=== PATIENT | male | born 1960 | race Caucasian/White ===

== ENCOUNTER 2020-10-12 07:41 | Inpatient (IN) | payer MEDICAID, OTHER ==
[2020-10-12] VITALS (11 sets, daily range): BP systolic 122–150; BP diastolic 70–88
[~2020-10-12] VITALS: Ht 182.9 cm; Wt 112.2 kg
--- NOTE | 2020-10-12 08:00 | PHYS DOC ---
Adult General Chief Complaint Chief Complaint: BLOODY STOOL HPI HPI Patient is a 60 year old male with a complicated medical history which includes recent diagnosis of pneumonia ultimately resulting in placement of a tra cheostomy and PEG tube placement who is still on high respiratory demands on trach collar during the day and ventilator at night now presenting to the emergency department due to concern for new onset of GI bleed. I was called by the physician at the facility who states that it is still that overnight the patient had 2 episodes of significant hematochezia. Patient is on Eliquis at this time and there is concern for development of new onset of GI bleed. Patient is currently nonverbal and unable to provide any additional history Review of Systems Review of Systems Constitutional: Denies fever or chills [] Eyes: Denies change in visual acuity, redness, or eye pain [] HENT: Denies nasal congestion or sore throat [] Respiratory: Denies cough or shortness of breath [] Cardiovascular: No additional information not addressed in HPI [] GI: Denies abdominal pain, nausea, vomiting, bloody stools or diarrhea [] : Denies dysuria or hematuria [] Musculoskeletal: Denies back pain or joint pain [] Integument: Denies rash or skin lesions [] Neurologic: Denies headache, focal weakness or sensory changes [] Endocrine: Denies polyuria or polydipsia [] All other systems were reviewed and found to be within normal limits, except as documented in this note. Current Medications Current Medications Current Medications Medications (Trade) Dose Ordered Sig/Asfaneh Start Time Stop Time Status Last Admin Dose Admin Info (CONTRAST GIVEN -- Rx MONITORING) 1 each PRN DAILY PRN 10/12/20 08:30 10/14/20 08:29 Iohexol (Omnipaque 300 Mg/ml) 75 ml 1X ONCE 10/12/20 08:15 10/12/20 08:16 DC 10/12/20 08:15 75 ML Allergies Allergies Allergies Coded Allergies Type Severity Reaction Last Updated Verified amoxicillin Allergy Intermediate 10/12/20 Yes ampicillin Allergy Intermediate 10/12/20 Yes clarithromycin Allergy Intermediate 10/12/20 Yes insulin detemir Allergy Intermediate ITCHING/SWELLING 10/12/20 Yes Physical Exam Physical Exam Constitutional: Well developed, well nourished, no acute distress, non-toxic appearance. [] HENT: Normocephalic, atraumatic, bilateral external ears normal, oropharynx moist, no oral exudates, nose normal. [] Eyes: PERRLA, EOMI, conjunctiva normal, no discharge. [] Neck: Normal range of motion, no tenderness, supple, no stridor. [] Cardiovascular:Heart rate regular rhythm, no murmur [] Lungs & Thorax: Bilateral breath sounds clear to auscultation [] Abdomen: Bowel sounds normal, soft, no tenderness, no masses, no pulsatile masses. [] Skin: Warm, dry, no erythema, no rash. [] Back: No tenderness, no CVA tenderness. [] Extremities: No tenderness, no cyanosis, no clubbing, ROM intact, no edema. [] Neurologic: Alert and oriented X 3, normal motor function, normal sensory function, no focal deficits noted. [] Psychologic: Affect normal, judgement normal, mood normal. [] Current Patient Data Vital Signs Vital Signs Date Time Temp Pulse Resp B/P (MAP) Pulse Ox O2 Delivery O2 Flow Rate FiO2 10/12/20 08:50 118 130/84 (99) 99 Tracheal Collar 15.0 10/12/20 07:41 99.7 24 99.7 Lab Values Laboratory Tests Test 10/12/20 06:40 10/12/20 07:45 10/12/20 08:10 Prothrombin Time 18.4 SEC (11.7-14.0) H Prothrombin Time INR 1.6 (0.8-1.1) H Activated Partial Thromboplast Time 33 SEC (24-38) White Blood Count 15.2 x10^3/uL (4.0-11.0) H Red Blood Count 3.13 x10^6/uL (4.30-5.70) L Hemoglobin 9.0 g/dL (13.0-17.5) L Hematocrit 28.7 % (39.0-53.0) L Mean Corpuscular Volume 92 fL (79-100) Mean Corpuscular Hemoglobin 29 pg (25-35) Mean Corpuscular Hemoglobin Concent 31 g/dL (31-37) Red Cell Distribution Width 16.9 % (11.5-14.5) H Platelet Count 342 x10^3/uL (140-400) Neutrophils (%) (Auto) 82 % (31-73) H Lymphocytes (%) (Auto) 10 % (24-48) L Monocytes (%) (Auto) 6 % (0-9) Eosinophils (%) (Auto) 1 % (0-3) Basophils (%) (Auto) 1 % (0-3) Neutrophils # (Auto) 12.5 x10^3/uL (1.8-7.7) H Lymphocytes # (Auto) 1.6 x10^3/uL (1.0-4.8) Monocytes # (Auto) 0.9 x10^3/uL (0.0-1.1) Eosinophils # (Auto) 0.1 x10^3/uL (0.0-0.7) Basophils # (Auto) 0.1 x10^3/uL (0.0-0.2) Sodium Level 145 mmol/L (136-145) Potassium Level 4.6 mmol/L (3.5-5.1) Chloride Level 110 mmol/L (98-107) H Carbon Dioxide Level 27 mmol/L (21-32) Anion Gap 8 (6-14) Blood Urea Nitrogen 35 mg/dL (8-26) H Creatinine 1.5 mg/dL (0.7-1.3) H Estimated GFR (Cockcroft-Gault) 47.6 Glucose Level 209 mg/dL (70-99) H Calcium Level 8.1 mg/dL (8.5-10.1) L Total Bilirubin 0.4 mg/dL (0.2-1.0) Direct Bilirubin 0.1 mg/dL (0.0-0.2) Aspartate Amino Transferase (AST) 25 U/L (15-37) Alanine Aminotransferase (ALT) 29 U/L (16-63) Alkaline Phosphatase 52 U/L (46-116) Total Protein 5.9 g/dL (6.4-8.2) L Albumin 2.5 g/dL (3.4-5.0) L Urine Collection Type Unknown Urine Color Yellow Urine Clarity Clear Urine pH 5.0 (<5.0-8.0) Urine Specific [place] 1.025 (1.000-1.030) Urine Protein 30 mg/dL (NEG-TRACE) Urine Glucose (UA) >=1000 mg/dL (NEG) Urine Ketones (Stick) Negative mg/dL (NEG) Urine Blood Large (NEG) Urine Nitrite Negative (NEG) Urine Bilirubin Negative (NEG) Urine Urobilinogen Dipstick 0.2 mg/dL (0.2 mg/dL) Urine Leukocyte Esterase Negative (NEG) Urine RBC 20-40 /HPF (0-2) Urine WBC Occ /HPF (0-4) Urine Squamous Epithelial Cells Few /LPF Urine Amorphous Sediment Present /HPF Urine Bacteria Few /HPF (0-FEW) Urine Hyaline Casts Occasional /HPF Urine Mucus Slight /LPF Laboratory Tests 10/12/20 07:45 Laboratory Tests 10/12/20 07:45 EKG EKG [] Radiology/Procedures Radiology/Procedures [] Course & Med Decision Making Course & Med Decision Making Pertinent Labs and Imaging studies reviewed. (See chart for details) 60M unresponsive presenting to the emergency department with apparent new onset of hematochezia. I already discussed the case with Dr. Villareal and we are anticipating that the patient continued to be admitted for GI evaluation. Will obtain a abdominal work-up and a CT scan of the abdomen to see if there is any source of bleeding. Dragon Disclaimer Dragon Disclaimer This electronic medical record was generated, in whole or in part, using a voice recognition dictation system. Departure Departure Impression: Primary Impression: Hematochezia Additional Impressions: Tracheostomy care PEG (percutaneous endoscopic gastrostomy) status Altered mental status Disposition: 09 ADMITTED INPT THIS HOSP Condition: GUARDED Problem Qualifiers PETERSON BAUTISTA MD Oct 12, 2020 08:00
[2020-10-12 08:06] LABS: BASO # 0.1 x10^3/uL (0.0-0.2); BASO % 1 % (0-3); EOS # 0.1 x10^3/uL (0.0-0.7); EOS % 1 % (0-3); HEMATOCRIT 28.7 % (39.0-53.0); LYMPH # 1.6 x10^3/uL (1.0-4.8); LYMPH % 10 % (24-48); MEAN CORPUSCULAR HEMOGLOBIN 29 pg (25-35); MEAN CORPUSCULAR HGB CONC 31 g/dL (31-37); MEAN CORPUSCULAR VOLUME 92 fL (79-100); MONO # 0.9 x10^3/uL (0.0-1.1); MONO % 6 % (0-9); NEUT # 12.5 x10^3/uL (1.8-7.7); NEUT % 82 % (31-73); PLATELET COUNT 342 x10^3/uL (140-400); RED BLOOD COUNT 3.13 x10^6/uL (4.30-5.70); RED CELL DISTRIBUTION WIDTH 16.9 % (11.5-14.5); WHITE BLOOD COUNT 15.2 x10^3/uL (4.0-11.0)
[2020-10-12 08:15] LABS: CALCIUM 8.1 mg/dL (8.5-10.1); CREATININE 1.5 mg/dL (0.7-1.3); GFR 47.6; POTASSIUM 4.6 mmol/L (3.5-5.1)
[2020-10-12] MEDS ORDERED: IOHEXOL 300 MG/ML 100ML VIAL. IV ONE (08:15)
[2020-10-12 08:17] LABS: PROTHROMBIN TIME PATIENT 18.4 SEC (11.7-14.0)
[2020-10-12 08:22] LABS: BILIRUBIN,URINE NEGATIVE (NEG); CLARITY,URINE CLEAR; COLOR,URINE YELLOW; NITRITE,URINE NEGATIVE (NEG); PROTEIN,URINE 30 mg/dL (NEG-TRACE); UROBILINOGEN,URINE 0.2 mg/dL (0.2 mg/dL)
[2020-10-12 08:25] LABS: ALBUMIN 2.5 g/dL (3.4-5.0); DIRECT BILIRUBIN 0.1 mg/dL (0.0-0.2); TOTAL BILIRUBIN 0.4 mg/dL (0.2-1.0); TOTAL PROTEIN 5.9 g/dL (6.4-8.2)
[2020-10-12] MEDS ORDERED: CONTRAST GIVEN. MC PRN (08:30)
[2020-10-12 08:34] LABS: BACTERIA,URINE FEW /HPF (0-FEW); RBC,URINE 20-40 /HPF (0-2); WBC,URINE OCC /HPF (0-4)
[2020-10-12 08:35] LABS: AMORPHOUS SEDIMENT,UR PRESENT /HPF; HYALINE CASTS, URINE OCCASIONAL /HPF
--- NOTE | 2020-10-12 09:31 | RAD ---
CT ABDOMEN+PELVIS W History: Reason: GI BLEED / Spl. Instructions: IV OMNI 300 75 MLS / History: Comparison: None. Technique: CT of the abdomen and pelvis with intravenous contrast. Exposure: One or more of the following individualized dose reduction techniques were utilized for thi s examination: 1. Automated exposure control 2. Adjustment of the mA and/or kV according to patient size 3. Use of iterative reconstruction technique. Findings: Lower lobes demonstrate streaky opacities. There is cardiomegaly and advanced coronary artery calcifi cation. Bilateral gynecomastia. No free air or free fluid in the abdomen and pelvis. Unremarkable liver. 5 mm calcified gallstone without evidence of cholecystitis. No intra or extrahepa tic biliary duct dilatation. The pancreas, spleen, and adrenal glands are unremarkable. Exophytic 5.5 cm right upper pole renal cyst 1.2 cm left upper pole renal cyst. No hydronephrosis or nephrolithias is. Bladder is decompressed by Najera catheter. Stomach is relatively decompressed. There is a right percutaneous gastrostomy tube with expected posi tioning of retention balloon. Small bowel is unremarkable. There is no evidence of appendicitis. The colon is distended with fluid to the rectum and there is no focal wall thickening or pericolonic infl ammatory changes. A slightly hyperdense foci are seen at the proximal ascending colon (axial image 66 ) which is of unclear etiology. There are a few pericolonic and calcified nodules which may represent sequela of old epiploic infarction. No significant diverticular disease. Atherosclerotic calcificati on of the aorta and branches without aneurysm. No significant abdominopelvic adenopathy. Degenerative changes of the spine greatest at L5 L6. Variant anatomy transitional L6 vertebral segment. Impression: 1. Fluid distended colon without focal wall thickening, pericolonic inflammatory change or significa nt diverticular disease. A focus of increased density at the wall of the proximal ascending colon may represent artifact or ingested material. Vascular blush is thought to be less likely. No definitive source of gastrointestinal bleeding is identified. 2. Appropriately positioned percutaneous gastrostomy tube. 3. Bibasilar streaky opacities may represent atelectasis however superimposed infection cannot be ex cluded. Electronically signed by: Eliud Schulz MD (10/12/2020 9:28 AM) [facility]
--- NOTE | 2020-10-12 10:11 | EKG ---
[facility] [address] [place] [address] Test Date: 2020-10-12 Test Time: 08:10:36 Pat Name: MALINDA GEORGES Department: Room: Gender: M Pipe [employer] Ammonia: : 1960 Requested By: PETERSON BAUTISTA Order Number: [id number] Reading MD: Measurements Intervals Brandon Rate: 122 P: 25 UT: 144 QRS: -35 QRSD: 76 T: 66 QT: 290 QTc: 414 Interpretive Statements SINUS TACHYCARDIA LEFT ATRIAL ABNORMALITY ABNORMAL LEFT AXIS DEVIATION LEFT ANTERIOR FASCICULAR BLOCK QRS(T) CONTOUR ABNORMALITY CONSISTENT WITH SEPTAL INFARCT PROBABLY OLD ABNORMAL ECG RI6.02 No previous ECG available for comparison
[2020-10-12] MEDS ORDERED: MORPHINE SULFATE 4 MG/ML VIAL. IV PRN (10:15)
[2020-10-12] MEDS ORDERED: ONDANSETRON PF 4 MG/2 ML VIAL. IV PRN (10:15)
--- NOTE | 2020-10-12 10:26 | PDOC ---
Provider Note Date of Service: DATE: 10/12/20 TIME: 10:26 Provider Note history and physical dictated # [id number] Justifications for Admission Other Justification GLENNY GANN MD Oct 12, 2020 10:26
[2020-10-12] MEDS ORDERED: POTASSIUM CL 20MEQ D5-0.45NACL 1,000 ML IV SCH (10:30)
[2020-10-12] MEDS ORDERED: ONDANSETRON PF 4 MG/2 ML VIAL. IVP PRN ×2 (10:30→11:00)
[2020-10-12] MEDS ORDERED: METOPROLOL IV PUSH 5 MG/5 ML VIAL. IVP PRN (10:30)
[2020-10-12] MEDS ORDERED: MEROPENEM 500 MG in IV NORMAL SALINE 50ML 50 ML IV ONE (11:00)
--- NOTE | 2020-10-12 11:22 | HP ---
ADMIT DATE: 10/12/2020 HISTORY OF PRESENT ILLNESS: The patient is a 60-year-old morbidly obese white male with history of diabetes mellitus type 2, on insulin, hypertension, hyperlipidemia, coronary artery disease with previous coronary angioplasty and stent, chronic obstructive pulmonary disease with chronic hypoxic respiratory failure, maintained on oxygen 1-2 liters per nasal cannula at home, was admitted to [facility] in 08/2020 with acute kidney injury and was noted to be COVID-19 positive. He had acute on chronic hypoxic respiratory failure, had to be intubated, placed on a ventilator, eventually had a tracheostomy and PEG was placed. He was not weaned off the ventilator. His hospital course was complicated by new onset atrial fibrillation with rapid ventricular response, treated with amiodarone and Eliquis, and noted to have a deep vein thrombosis of right upper extremity, treated with Eliquis. He also had Campylobacter jejuni, treated with a 3-day course of doxycycline which resolved. He had Bordetella in the sputum, received a course of Zithromax and Rocephin. His tracheostomy and PEG was placed in 09/24/2020. He developed acute kidney injury and treated with hemodialysis. His renal function improved and he has been off of hemodialysis. An echocardiogram showed a preserved left ventricular ejection fraction of 55-60% with some akinesis noted in the septal and distal apical areas, probably reflecting prior myocardial infarction and a grade 2 diastolic left ventricular dysfunction as well as mild pulmonary hypertension. He was still on the ventilator with pressure support at night. He trach alvarez during the day as tolerated and was receiving tube feedings. He was admitted to [facility] on 10/06/2020 for ventilator weaning, tracheostomy care, tube feeding, water flushes. While he is at this facility, he developed a fever and I believe his blood and urine cultures were negative, and he was treated with IV meropenem, seen by the Infectious Disease doctor and his fever resolved. In addition, he was on a trach shield during the day and he developed hematochezia today early this morning, was seen by the house physician and he had 2 large bouts of hematochezia. He was also seen by the telemetry nurse and the patient was sent to the [facility] Intensive Care Unit. He is still on Eliquis. Hemoglobin was 10 this morning at the [facility]. I saw him in the Emergency Room at [facility]. He was alert. He had some dark stool noted on his bed and it was blood-tinged. He did have a CAT scan of his abdomen and pelvis in the Emergency Room with contrast and it showed a fluid distended colon without any focal thickening or inflammation and he had an increased density in the wall of the proximal ascending colon. A vascular blush was thought to be less likely. No definite source of GI bleeding was identified. He had bilateral streaky opacities and atelectasis noted in his lungs. A gastrostomy tube was noted. In the Emergency Room, he had laboratory tests done. LABORATORY DATA: His white count was 15.2, hemoglobin 9, platelet count 342,000, 82 polys and 10 lymphocytes. His INR was 1.6 with a PTT of 33. His BUN was 35, creatinine 1.5. Albumin 2.5. ALLERGIES AND INTOLERANCES: INCLUDE BIAXIN, AMOXICILLIN, AMPICILLIN, INSULIN DETEMIR, BUT IS ABLE TO TOLERATE LANTUS INSULIN and insulin detemir just caused itching and swelling. MEDICATIONS: Meropenem 500 mg IV q.6 hours, amiodarone 200 mg every day, amlodipine 5 mg every day, atorvastatin 20 mg at bedtime, Lantus insulin 20 units subcutaneous daily, NovoLog insulin 4 units subQ every 6 hours, DuoNeb nebulizer treatments q.i.d., Zyvox 600 mg b.i.d. through his PEG, metoprolol tartrate 25 mg b.i.d., Protonix 40 mg IV daily which was started this morning, trazodone 50 mg at bedtime, and Eliquis 5 mg b.i.d. PAST MEDICAL HISTORY: Significant for chronic obstructive pulmonary disease, chronic hypoxic respiratory failure, diabetes mellitus type 2, hypertension, hyperlipidemia, coronary artery disease with previous coronary angioplasty and stent, chronic hypoxic respiratory failure, maintained on oxygen 1-2 liters per nasal cannula, recent COVID-19 pneumonia, recent Campylobacter jejuni gastroenteritis treated, severe protein-calorie malnutrition, morbid obesity; deep vein thrombosis of right upper extremity, on Eliquis; new onset paroxysmal atrial fibrillation, treated with Eliquis, but he was in sinus rhythm at [facility]. SOCIAL HISTORY: Unobtainable, as he is nonverbal. FAMILY HISTORY: Unobtainable, as he is nonverbal. REVIEW OF SYSTEMS: Also unobtainable, as he is nonverbal. PHYSICAL EXAMINATION: VITAL SIGNS: His temperature is 99.7 degrees, heart rate is 118, blood pressure 130/84, oxygen saturation 99%, respiratory rate is 24. Oxygen saturation was 99% with oxygen at 15 liters through his tracheostomy. HEENT: Eyes: Conjunctivae are somewhat pale. Gaze is conjugate. Sclerae are anicteric. Mouth: Tongue is midline. NECK: He has got a tracheostomy. He is on a trach shield. HEART: Reveals an S1, S2. There is no S3 or murmur. LUNGS: Clear anteriorly. Decreased breath sounds. ABDOMEN: Soft. Bowel sounds are high pitched. He has a gastrostomy tube, nontender. He does have some dark stool noted that is blood-tinged. EXTREMITIES: Lower extremities without edema. SKIN: No rashes. NEUROLOGIC: He looked at me with his left eye. LABORATORY TESTS: Review of his laboratory tests; his white count 15.2, hemoglobin 9, platelet count 342,000, 82 polys and 10 lymphocytes. His INR was 1.6, PTT of 33. Sodium 145, potassium 4.6, chloride 110, total CO2 of 27, BUN 35, creatinine 1.5, blood sugar 209, calcium 8.1, albumin 2.5. Urinalysis showed 20-40 red cells and occasional white blood cell. CAT scan of the abdomen and pelvis is as stated above. He also had an electrocardiogram done. ASSESSMENT: 1. Acute gastrointestinal bleed. 2. Acute blood loss anemia on top of anemia of chronic disease. 3. Acute on chronic hypoxic respiratory failure. 4. Chronic obstructive pulmonary disease. 5. Recent COVID-19 pneumonia, out of isolation. 6. Diabetes mellitus type 2, on insulin. 7. Hypertension. 8. Paroxysmal atrial fibrillation. 9. Hyperlipidemia. 10. Deep vein thrombosis, right upper extremity. 11. Morbid obesity. 12. Tracheostomy. 13. Severe protein-calorie malnutrition. 14. Oropharyngeal dysphagia, previously maintained on gastrostomy tube feedings. 15. Acute kidney injury, which improved significantly off of hemodialysis. PLAN: At this time is to admit him to the Intensive Care Unit. I discussed the case with the Emergency Room physician. We will consult Dr. Smalls for Pulmonary, Dr. Jay Santamaria for Infectious Disease and we will also consult Dr. Peterson for GI. Continue with IV Protonix. Check his hemoglobin and hematocrit every 6 hours and transfuse if the hemoglobin is less than 7 or if he develops hypotension. We will put him on Humalog insulin sliding scale. We will continue with his IV meropenem. We will also continue with the Zyvox and meropenem, we will give that intravenously. Hold off on his blood pressure medicine. His Eliquis has been discontinued. He also was on aspirin prior to admission that was discontinued this morning. Continue with his nebulizer treatments, tracheostomy care. GLENNY GANN MD DR: MINE/moy JOB#: [id number] / [id number]
--- NOTE | 2020-10-12 11:25 | RAD ---
XR CHEST 1V History: Reason: respiratory failure / Spl. Instructions: / History: Comparison: None. Findings: Interstitial thickening. Patchy mid and bibasilar opacities, most prominent within the left lung base . Tracheostomy tube with tip 2.4 cm above the henrique. Small left pleural effusion. No pneumothorax. Impression: 1. Interstitial thickening with alveolar opacities, may represent pulmonary edema or infection. Electronically signed by: Ulises Koenig DO (10/12/2020 11:23 AM) [id number]
--- NOTE | 2020-10-12 11:56 | PDOC2 ---
GI CONSULT Date of Service: DATE: 10/12/20 TIME: 11:38 Reason For Consult: hematochezia HPI: HPI: 60 y/o male sent from [facility] for hematochezia. I d/w ER nurse - she reports large loose/watery dark stool that was blood-tinged. H/o COVID-19 infection w/ resp failure s/p trach and PEG, A Fib and UE DVT on Eliquis (previously also amiodarone), recent Campylobacter gastroenteritis (treated w/ doxycycline), LIBAN requiring HD for a time, recent fever treated w/ meropenem. Hgb was 10 earlier today, now 9. MCV 92, INR 1.6, BUN 35, Cr 1.5. CT noted fluid-distended colon, also cholelithiasis. No meaningful history from pt. PMH: PMH: CAD w/ angioplasty/stent, A Fib, DM, HTN, HLD, COPD, LIBAN w/ past HD UE DVT, COVID-19 tracheostomy, PEG FH: Family History: Other (unable to obtain) Social History: ALCOHOL: other (unable to obtain) ROS: Unable to obtain. Vitals: Vitals: Vital Signs Date Time Temp Pulse Resp B/P (MAP) Pulse Ox O2 Delivery O2 Flow Rate FiO2 10/12/20 08:50 118 130/84 (99) 99 Tracheal Collar 15.0 10/12/20 07:41 99.7 24 99.7 Labs: Labs: Laboratory Tests Test 10/12/20 06:40 10/12/20 07:45 10/12/20 08:10 Prothrombin Time 18.4 SEC (11.7-14.0) Prothromb Time International Ratio 1.6 (0.8-1.1) Activated Partial Thromboplast Time 33 SEC (24-38) White Blood Count 15.2 x10^3/uL (4.0-11.0) Red Blood Count 3.13 x10^6/uL (4.30-5.70) Hemoglobin 9.0 g/dL (13.0-17.5) Hematocrit 28.7 % (39.0-53.0) Mean Corpuscular Volume 92 fL (79-100) Mean Corpuscular Hemoglobin 29 pg (25-35) Mean Corpuscular Hemoglobin Concent 31 g/dL (31-37) Red Cell Distribution Width 16.9 % (11.5-14.5) Platelet Count 342 x10^3/uL (140-400) Neutrophils (%) (Auto) 82 % (31-73) Lymphocytes (%) (Auto) 10 % (24-48) Monocytes (%) (Auto) 6 % (0-9) Eosinophils (%) (Auto) 1 % (0-3) Basophils (%) (Auto) 1 % (0-3) Neutrophils # (Auto) 12.5 x10^3/uL (1.8-7.7) Lymphocytes # (Auto) 1.6 x10^3/uL (1.0-4.8) Monocytes # (Auto) 0.9 x10^3/uL (0.0-1.1) Eosinophils # (Auto) 0.1 x10^3/uL (0.0-0.7) Basophils # (Auto) 0.1 x10^3/uL (0.0-0.2) Sodium Level 145 mmol/L (136-145) Potassium Level 4.6 mmol/L (3.5-5.1) Chloride Level 110 mmol/L (98-107) Carbon Dioxide Level 27 mmol/L (21-32) Anion Gap 8 (6-14) Blood Urea Nitrogen 35 mg/dL (8-26) Creatinine 1.5 mg/dL (0.7-1.3) Estimated GFR (Cockcroft-Gault) 47.6 Glucose Level 209 mg/dL (70-99) Calcium Level 8.1 mg/dL (8.5-10.1) Total Bilirubin 0.4 mg/dL (0.2-1.0) Direct Bilirubin 0.1 mg/dL (0.0-0.2) Aspartate Amino Transf (AST/SGOT) 25 U/L (15-37) Alanine Aminotransferase (ALT/SGPT) 29 U/L (16-63) Alkaline Phosphatase 52 U/L (46-116) Total Protein 5.9 g/dL (6.4-8.2) Albumin 2.5 g/dL (3.4-5.0) Urine Collection Type Unknown Urine Color Yellow Urine Clarity Clear Urine pH 5.0 (<5.0-8.0) Urine Specific [place] 1.025 (1.000-1.030) Urine Protein 30 mg/dL (NEG-TRACE) Urine Glucose (UA) >=1000 mg/dL (NEG) Urine Ketones (Stick) Negative mg/dL (NEG) Urine Blood Large (NEG) Urine Nitrite Negative (NEG) Urine Bilirubin Negative (NEG) Urine Urobilinogen Dipstick 0.2 mg/dL (0.2 mg/dL) Urine Leukocyte Esterase Negative (NEG) Urine RBC 20-40 /HPF (0-2) Urine WBC Occ /HPF (0-4) Urine Squamous Epithelial Cells Few /LPF Urine Amorphous Sediment Present /HPF Urine Bacteria Few /HPF (0-FEW) Urine Hyaline Casts Occasional /HPF Urine Mucus Slight /LPF Allergies: Coded Allergies: amoxicillin (Verified Allergy, Intermediate, 10/12/20) ampicillin (Verified Allergy, Intermediate, 10/12/20) clarithromycin (Verified Allergy, Intermediate, 10/12/20) insulin detemir (Verified Allergy, Intermediate, ITCHING/SWELLING, 10/12/20) Medications: Current Medications Medications (Trade) Dose Ordered Sig/Afsaneh Route PRN Reason Start Time Stop Time Status Last Admin Dose Admin Iohexol (Omnipaque 300 Mg/ml) 75 ml 1X ONCE IV 10/12/20 08:15 10/12/20 08:16 DC 10/12/20 08:15 Imaging: Imaging: CT A/P Impression: 1. Fluid distended colon without focal wall thickening, pericolonic inflammatory change or significant diverticular disease. A focus of increased density at the wall of the proximal ascending colon may represent artifact or ingested material. Vascular blush is thought to be less likely. No definitive source of gastrointestinal bleeding is identified. 2. Appropriately positioned percutaneous gastrostomy tube. 3. Bibasilar streaky opacities may represent atelectasis however superimposed infection cannot be excluded. CXR Impression: 1. Interstitial thickening with alveolar opacities, may represent pulmonary edema or infection. PE: GEN: NAD HEENT: Atraumatic, PERRL LUNGS: trach collar, clear anteriorly HEART: tachycardic ABD: NABS, soft, large, PEG tube w/ sutures RUQ EXTREMITY/SKIN: BLE in boots NEURO/PSYCH: awake and alert - seemed to acknowledge me and he did squeeze my finger once - after that did not follow commands A/P: A/P: Hematochezia/melena Anemia - drifting Hgb today Recent COVID-19 infection s/p tracheostomy and PEG 09/24/20 A Fib - on Eliquis Cholelithiasis - noted on CT -- On a lot of antibiotics recently - will check C Diff, stool studies. Monitor labs and for bleeding. Agree w/ IV PPI. YOSVANY MCINTOSH Oct 12, 2020 11:56
[2020-10-12] MEDS: INSULIN LISPRO 300 UNITS/3 ML VIAL. SQ SCH ×2 (12:00→18:00)
[2020-10-12] MEDS: IPRATRPIUM/ALBUTEROL 0.5/2.5MG 3 ML NEBU. NEB SCH ×3 (12:00→20:43)
[2020-10-12 12:06] LABS: FECAL OB PT POSITIVE (NEG)
--- NOTE | 2020-10-12 13:51 | RAD ---
EXAMINATION: CT HEAD/BRAIN WO (CT HEAD WITHOUT IV CONTRAST) CLINICAL HISTORY: Altered mental status TECHNIQUE: Serial axial images without IV contrast were obtained from the vertex to the foramen magnu m. CT Dose Reduction Employed: One or more of the following individualized dose reduction techniques wer e utilized for this examination: 1. Automated exposure control 2. Adjustment of the mA and/or kV ac cording to patient size 3. Use of iterative reconstruction technique. COMPARISON: None FINDINGS: Acute Change: No evidence of an acute infarct or other acute parenchymal process. Hemorrhage: No evidence of acute intracranial hemorrhage. Mass Lesion/Mass Effect: No evidence of intracranial mass or extraaxial fluid collection. No signific ant mass effect. Chronic Change: Scattered patchy foci of hypoattenuation in the supratentorial white matter, nonspeci fic but likely represents mild microvascular ischemia. Atherosclerotic calcification of the bilateral carotid siphons. Parenchyma: Mild to moderate generalized volume loss. Parenchyma otherwise within normal limits for a ge. Ventricles: Ventricular enlargement concordant with degree of parenchymal volume loss. Paranasal Sinuses and Skull Base: Mild secretions in the sphenoid sinus. Partially opacified mastoid air cells, greater on the right. Visualized skull base and soft tissues unremarkable. IMPRESSION: No evidence of acute intracranial abnormality. Partially opacified mastoid air cells, nonspecific but can be seen with mastoiditis. Electronically signed by: Acosta Chaudhry DO (10/12/2020 1:49 PM) [id number]
[2020-10-12] MEDS ORDERED: TRAZ-118 PO (14:08)
[2020-10-12] MEDS ORDERED: ACET325T9 PO (14:08)
[2020-10-12] MEDS ORDERED: AMLO-186 PO (14:08)
[2020-10-12] MEDS ORDERED: AMIO200T6 PO (14:08)
[2020-10-12] MEDS ORDERED: ATOR20TA58 PO (14:08)
[2020-10-12] MEDS ORDERED: METO25TA4 PO (14:08)
[2020-10-12] MEDS ORDERED: INSU100I13 SQ (14:08)
[2020-10-12] MEDS ORDERED: PANT20TA2 PO (14:08)
[2020-10-12] MEDS ORDERED: MERO500V22 IV (14:08)
[2020-10-12] MEDS ORDERED: DOCU-109 PO (14:08)
[2020-10-12] MEDS ORDERED: LINE600T12 PO (14:08)
[2020-10-12] MEDS ORDERED: IPRA3AMP29 NEB (14:08)
--- NOTE | 2020-10-12 14:32 | PDOC2 ---
CARDIAC CONSULT DATE OF CONSULT Date of Consult DATE: 10/12/20 TIME: 14:25 REASON FOR CONSULT Reason for Consult: PAFIB REFERRING PHYSICIAN Referring Physician: Dr. Villareal SOURCE Source: Chart review HISTORY OF PRESENT ILLNESS HISTORY OF PRESENT ILLNESS This is a 60 yo male who presented from [facility] due to significant hematochezia. Has a history of AFIB and is on Eliquis. He initially presented 09/09 to [facility] for shortness of breath. Was COVID +. Required intubation and eventually trach placement. Was unable to be weaned from the ventilator. PEG was also place. Hospital course was complicated by LIBAN requiring HD and new onset AFIB with RVR treated with Amiodarone. Was placed on Eliquis for stroke prophylaxis. Was also noted with RUE DVT. His renal function improved and was taken off HD. Echo showed a preserved LV function with EF 55-60%. Akinesis noted in the septal and distal apical areas, probably reflecting prior myocardial infarction and a grade 2 diastolic dysfunction and pulmonary hypertension. PAST MEDICAL HISTORY Cardiovascular: AFIB, CAD (s/p PCI/stents ), HTN, Hyperlipidemia Pulmonary: COPD (on home O2) Endocrine: Diabetes PAST SURGICAL HISTORY Past Surgical History: Other (trach ) FAMILY HISTORY Family History: Family History Unknown SOCIAL HISTORY Smoke: No ALCOHOL: none CURRENT MEDICATIONS CURRENT MEDICATIONS Current Medications Medications (Trade) Dose Ordered Sig/Afsaneh Route PRN Reason Start Time Stop Time Status Last Admin Dose Admin Iohexol (Omnipaque 300 Mg/ml) 75 ml 1X ONCE IV 10/12/20 08:15 10/12/20 08:16 DC 10/12/20 08:15 Potassium Chloride/Dextrose/ Sod Cl 1,000 ml @ 75 mls/hr [id number] IV 10/12/20 10:30 10/12/20 23:49 10/12/20 11:46 Linezolid/Dextrose 300 ml @ 300 mls/hr ONCE ONCE IV 10/12/20 11:30 10/12/20 12:29 DC 10/12/20 11:50 Meropenem 500 mg/ Sodium Chloride 50 ml @ 100 mls/hr ONCE ONCE IV 10/12/20 11:00 10/12/20 11:29 DC 10/12/20 11:46 ALLERGIES ALLERGIES: Coded Allergies: amoxicillin (Verified Allergy, Intermediate, 10/12/20) ampicillin (Verified Allergy, Intermediate, 10/12/20) clarithromycin (Verified Allergy, Intermediate, 10/12/20) insulin detemir (Verified Allergy, Intermediate, ITCHING/SWELLING, 10/12/20) ROS Review of System unobtainable PHYSICAL EXAM General: Alert, No acute distress, Other (nonverbal ) HEENT: Atraumatic, Other (trach ) Lungs: Other (diminished bases) Heart: Regular rate (SR/ST) Abdomen: Soft, No tenderness Extremities: No edema, Normal pulses Skin: No significant lesion Neuro: Other (nonverbal ) Psych/Mental Status: Other (awake) MUSCULOSKELETAL: Osteoarthritic changes both hands VITALS/I&O VITALS/I&O: Vital Signs Date Time Temp Pulse Resp B/P (MAP) Pulse Ox O2 Delivery O2 Flow Rate FiO2 10/12/20 14:00 112 22 138/72 (94) 99 Tracheal Collar 10/12/20 13:00 98.4 98.4 10/12/20 12:30 10.0 LABS Lab: Laboratory Tests Test 10/12/20 06:40 10/12/20 07:45 10/12/20 08:10 10/12/20 10:35 Prothrombin Time 18.4 SEC (11.7-14.0) H Prothrombin Time INR 1.6 (0.8-1.1) H Activated Partial Thromboplast Time 33 SEC (24-38) White Blood Count 15.2 x10^3/uL (4.0-11.0) H Red Blood Count 3.13 x10^6/uL (4.30-5.70) L Hemoglobin 9.0 g/dL (13.0-17.5) L Hematocrit 28.7 % (39.0-53.0) L Mean Corpuscular Volume 92 fL (79-100) Mean Corpuscular Hemoglobin 29 pg (25-35) Mean Corpuscular Hemoglobin Concent 31 g/dL (31-37) Red Cell Distribution Width 16.9 % (11.5-14.5) H Platelet Count 342 x10^3/uL (140-400) Neutrophils (%) (Auto) 82 % (31-73) H Lymphocytes (%) (Auto) 10 % (24-48) L Monocytes (%) (Auto) 6 % (0-9) Eosinophils (%) (Auto) 1 % (0-3) Basophils (%) (Auto) 1 % (0-3) Neutrophils # (Auto) 12.5 x10^3/uL (1.8-7.7) H Lymphocytes # (Auto) 1.6 x10^3/uL (1.0-4.8) Monocytes # (Auto) 0.9 x10^3/uL (0.0-1.1) Eosinophils # (Auto) 0.1 x10^3/uL (0.0-0.7) Basophils # (Auto) 0.1 x10^3/uL (0.0-0.2) Sodium Level 145 mmol/L (136-145) Potassium Level 4.6 mmol/L (3.5-5.1) Chloride Level 110 mmol/L (98-107) H Carbon Dioxide Level 27 mmol/L (21-32) Anion Gap 8 (6-14) Blood Urea Nitrogen 35 mg/dL (8-26) H Creatinine 1.5 mg/dL (0.7-1.3) H Estimated GFR (Cockcroft-Gault) 47.6 Glucose Level 209 mg/dL (70-99) H Calcium Level 8.1 mg/dL (8.5-10.1) L Total Bilirubin 0.4 mg/dL (0.2-1.0) Direct Bilirubin 0.1 mg/dL (0.0-0.2) Aspartate Amino Transferase (AST) 25 U/L (15-37) Alanine Aminotransferase (ALT) 29 U/L (16-63) Alkaline Phosphatase 52 U/L (46-116) Total Protein 5.9 g/dL (6.4-8.2) L Albumin 2.5 g/dL (3.4-5.0) L Urine Collection Type Unknown Urine Color Yellow Urine Clarity Clear Urine pH 5.0 (<5.0-8.0) Urine Specific [place] 1.025 (1.000-1.030) Urine Protein 30 mg/dL (NEG-TRACE) Urine Glucose (UA) >=1000 mg/dL (NEG) Urine Ketones (Stick) Negative mg/dL (NEG) Urine Blood Large (NEG) Urine Nitrite Negative (NEG) Urine Bilirubin Negative (NEG) Urine Urobilinogen Dipstick 0.2 mg/dL (0.2 mg/dL) Urine Leukocyte Esterase Negative (NEG) Urine RBC 20-40 /HPF (0-2) Urine WBC Occ /HPF (0-4) Urine Squamous Epithelial Cells Few /LPF Urine Amorphous Sediment Present /HPF Urine Bacteria Few /HPF (0-FEW) Urine Hyaline Casts Occasional /HPF Urine Mucus Slight /LPF Stool Occult Blood Positive (NEG) Laboratory Tests 10/12/20 07:45 Laboratory Tests 10/12/20 07:45 ECHOCARDIOGRAM ECHOCARDIOGRAM Date 09/2020 Echo showed a preserved LV function with EF 55-60%. Akinesis noted in the septal and distal apical areas, probably reflecting prior myocardial infarction and a grade 2 diastolic dysfunction and pulmonary hypertension ASSESSMENT/PLAN ASSESSMENT/PLAN 1. Hematochezia, melena, GIB 2. Anemia, coagulopathy. OAC held 3. PAFIB; maintaining SR/ST. Amiodarone for rhythm maintenance. Was on Eliquis for stroke prophylaxis 4. CAD s/p PCI/stent placement. Recent echo with preserved LV systolic function 5. Acute on chronic respiratory failure secondary to COVID PNA with underlying COPD. s/p trach. on vent at HS 6. Hypertension; controlled 7. Hyperlipidemia; statin 8. LIBAN requiring HD. now off 9. Encephalopathy 10. Dysphagia; s/p PEG Recommendations Resume Amiodarone for rhythm maintenance Metoprolol for rate control No ASA, AC due to GIB Secondary prevention as able Supportive care JARRETT SANCHES APRN Oct 12, 2020 14:32
--- NOTE | 2020-10-12 15:23 | PDOC ---
PULMONARY PROGRESS NOTES DATE: 10/12/20 TIME: 15:22 Vitals Vital Signs Date Time Temp Pulse Resp B/P (MAP) Pulse Ox O2 Delivery O2 Flow Rate FiO2 10/12/20 14:00 112 22 138/72 (94) 99 Tracheal Collar 10/12/20 13:00 98.4 98.4 10/12/20 12:30 10.0 Labs Laboratory Tests Test 10/12/20 06:40 10/12/20 07:45 10/12/20 08:10 10/12/20 10:35 Prothrombin Time 18.4 SEC (11.7-14.0) Prothromb Time International Ratio 1.6 (0.8-1.1) Activated Partial Thromboplast Time 33 SEC (24-38) White Blood Count 15.2 x10^3/uL (4.0-11.0) Red Blood Count 3.13 x10^6/uL (4.30-5.70) Hemoglobin 9.0 g/dL (13.0-17.5) Hematocrit 28.7 % (39.0-53.0) Mean Corpuscular Volume 92 fL (79-100) Mean Corpuscular Hemoglobin 29 pg (25-35) Mean Corpuscular Hemoglobin Concent 31 g/dL (31-37) Red Cell Distribution Width 16.9 % (11.5-14.5) Platelet Count 342 x10^3/uL (140-400) Neutrophils (%) (Auto) 82 % (31-73) Lymphocytes (%) (Auto) 10 % (24-48) Monocytes (%) (Auto) 6 % (0-9) Eosinophils (%) (Auto) 1 % (0-3) Basophils (%) (Auto) 1 % (0-3) Neutrophils # (Auto) 12.5 x10^3/uL (1.8-7.7) Lymphocytes # (Auto) 1.6 x10^3/uL (1.0-4.8) Monocytes # (Auto) 0.9 x10^3/uL (0.0-1.1) Eosinophils # (Auto) 0.1 x10^3/uL (0.0-0.7) Basophils # (Auto) 0.1 x10^3/uL (0.0-0.2) Sodium Level 145 mmol/L (136-145) Potassium Level 4.6 mmol/L (3.5-5.1) Chloride Level 110 mmol/L (98-107) Carbon Dioxide Level 27 mmol/L (21-32) Anion Gap 8 (6-14) Blood Urea Nitrogen 35 mg/dL (8-26) Creatinine 1.5 mg/dL (0.7-1.3) Estimated GFR (Cockcroft-Gault) 47.6 Glucose Level 209 mg/dL (70-99) Calcium Level 8.1 mg/dL (8.5-10.1) Total Bilirubin 0.4 mg/dL (0.2-1.0) Direct Bilirubin 0.1 mg/dL (0.0-0.2) Aspartate Amino Transf (AST/SGOT) 25 U/L (15-37) Alanine Aminotransferase (ALT/SGPT) 29 U/L (16-63) Alkaline Phosphatase 52 U/L (46-116) Total Protein 5.9 g/dL (6.4-8.2) Albumin 2.5 g/dL (3.4-5.0) Urine Collection Type Unknown Urine Color Yellow Urine Clarity Clear Urine pH 5.0 (<5.0-8.0) Urine Specific [place] 1.025 (1.000-1.030) Urine Protein 30 mg/dL (NEG-TRACE) Urine Glucose (UA) >=1000 mg/dL (NEG) Urine Ketones (Stick) Negative mg/dL (NEG) Urine Blood Large (NEG) Urine Nitrite Negative (NEG) Urine Bilirubin Negative (NEG) Urine Urobilinogen Dipstick 0.2 mg/dL (0.2 mg/dL) Urine Leukocyte Esterase Negative (NEG) Urine RBC 20-40 /HPF (0-2) Urine WBC Occ /HPF (0-4) Urine Squamous Epithelial Cells Few /LPF Urine Amorphous Sediment Present /HPF Urine Bacteria Few /HPF (0-FEW) Urine Hyaline Casts Occasional /HPF Urine Mucus Slight /LPF Stool Occult Blood Positive (NEG) Laboratory Tests Test 10/12/20 06:40 10/12/20 07:45 10/12/20 08:10 10/12/20 10:35 Prothrombin Time 18.4 SEC (11.7-14.0) Prothromb Time International Ratio 1.6 (0.8-1.1) Activated Partial Thromboplast Time 33 SEC (24-38) White Blood Count 15.2 x10^3/uL (4.0-11.0) Red Blood Count 3.13 x10^6/uL (4.30-5.70) Hemoglobin 9.0 g/dL (13.0-17.5) Hematocrit 28.7 % (39.0-53.0) Mean Corpuscular Volume 92 fL (79-100) Mean Corpuscular Hemoglobin 29 pg (25-35) Mean Corpuscular Hemoglobin Concent 31 g/dL (31-37) Red Cell Distribution Width 16.9 % (11.5-14.5) Platelet Count 342 x10^3/uL (140-400) Neutrophils (%) (Auto) 82 % (31-73) Lymphocytes (%) (Auto) 10 % (24-48) Monocytes (%) (Auto) 6 % (0-9) Eosinophils (%) (Auto) 1 % (0-3) Basophils (%) (Auto) 1 % (0-3) Neutrophils # (Auto) 12.5 x10^3/uL (1.8-7.7) Lymphocytes # (Auto) 1.6 x10^3/uL (1.0-4.8) Monocytes # (Auto) 0.9 x10^3/uL (0.0-1.1) Eosinophils # (Auto) 0.1 x10^3/uL (0.0-0.7) Basophils # (Auto) 0.1 x10^3/uL (0.0-0.2) Sodium Level 145 mmol/L (136-145) Potassium Level 4.6 mmol/L (3.5-5.1) Chloride Level 110 mmol/L (98-107) Carbon Dioxide Level 27 mmol/L (21-32) Anion Gap 8 (6-14) Blood Urea Nitrogen 35 mg/dL (8-26) Creatinine 1.5 mg/dL (0.7-1.3) Estimated GFR (Cockcroft-Gault) 47.6 Glucose Level 209 mg/dL (70-99) Calcium Level 8.1 mg/dL (8.5-10.1) Total Bilirubin 0.4 mg/dL (0.2-1.0) Direct Bilirubin 0.1 mg/dL (0.0-0.2) Aspartate Amino Transf (AST/SGOT) 25 U/L (15-37) Alanine Aminotransferase (ALT/SGPT) 29 U/L (16-63) Alkaline Phosphatase 52 U/L (46-116) Total Protein 5.9 g/dL (6.4-8.2) Albumin 2.5 g/dL (3.4-5.0) Urine Collection Type Unknown Urine Color Yellow Urine Clarity Clear Urine pH 5.0 (<5.0-8.0) Urine Specific [place] 1.025 (1.000-1.030) Urine Protein 30 mg/dL (NEG-TRACE) Urine Glucose (UA) >=1000 mg/dL (NEG) Urine Ketones (Stick) Negative mg/dL (NEG) Urine Blood Large (NEG) Urine Nitrite Negative (NEG) Urine Bilirubin Negative (NEG) Urine Urobilinogen Dipstick 0.2 mg/dL (0.2 mg/dL) Urine Leukocyte Esterase Negative (NEG) Urine RBC 20-40 /HPF (0-2) Urine WBC Occ /HPF (0-4) Urine Squamous Epithelial Cells Few /LPF Urine Amorphous Sediment Present /HPF Urine Bacteria Few /HPF (0-FEW) Urine Hyaline Casts Occasional /HPF Urine Mucus Slight /LPF Stool Occult Blood Positive (NEG) Medications Active Scripts Medications Dose Route/Sig Max Daily Dose Days Date Category Colace (Docusate Sodium) 100 Mg Capsule 1 Cap PO BID 15 10/12/20 Reported Tylenol (Acetaminophen) 325 Mg Tablet 650 Mg PO PRN Q6HRS PRN 10/12/20 Reported Trazodone Hcl 50 Mg Tablet 1 Tab PO QHS 10/12/20 Reported Protonix (Pantoprazole Sodium) 20 Mg Tablet.dr 1 Tab PO DAILY 10/12/20 Reported Metoprolol Tartrate 25 Mg Tablet 1 Tab PO BID 10/12/20 Reported Merrem (Meropenem) 500 Mg Vial 500 Mg IV Q6HRS 10/12/20 Reported Zyvox (Linezolid) 600 Mg Tablet 600 Mg PO BID 10/12/20 Reported Duoneb 0.5-3(2.5) Mg/3 Ml (Albuterol/Ipratropium) 3 Ml Ampul.neb 3 Ml NEB QID 10/12/20 Reported Lantus Solostar (Insulin Glargine,Hum.rec.anlog) 100 Unit/1 Ml Insuln.pen 22 Unit SQ QHS 10/12/20 Reported Atorvastatin Calcium 20 Mg Tablet 1 Tab PO DAILY 10/12/20 Reported Amlodipine Besylate 5 Mg Tablet 5 Mg PO DAILY 10/12/20 Reported Amiodarone Hcl 200 Mg Tablet 1 Tab PO DAILY 10/12/20 Reported Impression . FULL NOTE DICTATED WILL CONTINUE SUPPORT FOR NOW FOLLOW GI INPUT CHINO JUÁREZ MD Oct 12, 2020 15:23
[2020-10-12 15:53] LABS: BASO # 0.1 x10^3/uL (0.0-0.2); BASO % 1 % (0-3); EOS % 0 % (0-3); HEMATOCRIT 27.9 % (39.0-53.0); HEMOGLOBIN 8.7 g/dL (13.0-17.5); LYMPH # 1.5 x10^3/uL (1.0-4.8); LYMPH % 11 % (24-48); MEAN CORPUSCULAR HEMOGLOBIN 29 pg (25-35); MEAN CORPUSCULAR HGB CONC 31 g/dL (31-37); MEAN CORPUSCULAR VOLUME 92 fL (79-100); MONO # 0.8 x10^3/uL (0.0-1.1); MONO % 6 % (0-9); NEUT # 11.4 x10^3/uL (1.8-7.7); NEUT % 82 % (31-73); PLATELET COUNT 285 x10^3/uL (140-400); RED BLOOD COUNT 3.02 x10^6/uL (4.30-5.70); RED CELL DISTRIBUTION WIDTH 16.4 % (11.5-14.5)
--- NOTE | 2020-10-12 15:57 | NUR ---
Wound Care Wound Type/Assessment: Consult to eval and treat for multiple wounds present on admission. Wounds pictured and measured by [facility] prior to creation of wound assessment. R upper arm skin tear is slough covered with pale pink, well-defined margins. ST III pressure ulcer spanning across bilateral buttocks/coccyx, slough covered with bright red granulation and pale pink epithelialization at wound margins. Areas of bridged epithelialization are varied from pink and blanchable to red and non-blanchable. Pt is incontinent of loose stool and is only minimaly able to assist with bed mobility. No other open wounds noted on head to toe assessment. Treatment Recommendations/Plan: R arm ST: Cleanse and dry. Apply medihoney gel, xeroform and foam. Change on 10/14/20 and 10/17/20 Buttocks: Apply A&D ointment BID and PRN soiling. 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 Pt is non verbal, unclear if he understood instruction. Offloading surface/device: ICU bed, Wedge for turning, pillows for comfot and offloading. Turned to L side. Recommended Referrals/Tests: NA Discharge Recommendations for dressings: As above
[2020-10-12] MEDS: ATORVASTATIN CALCIUM 20 MG TABLET PO SCH (16:38)
[2020-10-12] MEDS: AMIODARONE HCL 200 MG TABLET. PO SCH (16:39)
--- NOTE | 2020-10-12 17:12 | NUR ---
ADMISSION NOTE PATIENT ARRIVED TO THE UNIT SOILED AND OVERALL IN A VERY POOR OVERALL STATE OF CLEANLINESS. PATIENTS PIV WAS VISIBLY SOILED UNDERNEATH TEGADERM THAT WAS NON OCCLUSIVE, HAD DIRT IN ARM PITS AND LOOKED TO NOT BE BATHED FOR QUITE SOME TIME. WOODARD LOOKED DIRTY. THIS RN DC'S PIV AND STARTED A NEW ONE, REPLACED WOODARD FOLLOWING ALL STERILE PROTOCOLS FOR INSERTION, AND GAVE THE PATIENT A LONG BED BATH. WOUNDS WERE DISCOVERED ON PATIENTS COCCYX AND RIGHT UPPER ARM, WOUND CARE CONSULTED, WOUNDS PICTURED AND PLACED IN CHART.
[2020-10-12] MEDS ORDERED: VITS A & D/LANOLIN TOPICAL OINTMENT 42GM TUBE. TP PRN (17:15)
[2020-10-12] MEDS: MEROPENEM 500 MG in IV NORMAL SALINE 50ML 50 ML IV SCH (17:31)
--- NOTE | 2020-10-12 20:19 | CONS ---
DATE OF CONSULTATION: 10/12/2020 ATTENDING PHYSICIAN: Dr. Ap Villareal. REASON FOR CONSULTATION: The patient is seen in pulmonary consultation at the request of Dr. Villareal for chronic respiratory failure. HISTORY OF PRESENT ILLNESS: The patient is a 60-year-old male who has underlying history of type 2 diabetes, hypertension, hyperlipidemia, coronary artery disease with previous angioplasty and underlying COPD, chronic respiratory failure, normally on 1-2 liters per nasal cannula at home. The patient was admitted to [facility] for COVID-19 viral pneumonia. His course was complicated with respiratory failure, was intubated and underwent tracheostomy in place and PEG tube placement. He was being weaned off of mechanical support at [facility] on pressure support at nighttime, and trach shield during the day. He was also being treated for DVT of right upper extremity with Eliquis. Today, he had difficulty with the possibility of GI bleed. He was transferred to [place] for further evaluation and management. During my evaluation, the patient was on a trach shield. He was having significant diarrhea, was sent to [facility] for hematochezia. He is currently being seen by the GI service. His hemoglobin earlier today was 10 and it is now 9. His INR was 1.6. He has been given some IV fluids. PAST MEDICAL AND SURGICAL HISTORY: Coronary artery disease with previous stent placement and angioplasty, AFib, diabetes, hypertension, hyperlipidemia, COPD, history of upper extremity DVT. Recent COVID-19 viral pneumonia, complicated with respiratory failure, status post trach and PEG. FAMILY HISTORY: Unobtainable. SOCIAL HISTORY: Unknown. REVIEW OF SYSTEMS: Unobtainable secondary to the patient's condition. ALLERGIES: AMOXICILLIN, CLARITHROMYCIN, AND INSULIN. PHYSICAL EXAMINATION: VITAL SIGNS: Stable. O2 saturation was greater than 92%, currently on 15 liters of oxygen supplementation. HEENT: Eyes, the sclerae were nonicteric. NECK: Jugular venous distention was not elevated. Trach in place. CHEST: Full expansion. LUNGS: Adequate flow with no wheezes. CARDIOVASCULAR: Regular rate and rhythm with S1, S2, no S3. ABDOMEN: Soft, nontender, nondistended. PEG tube in place. EXTREMITIES: No clubbing, cyanosis or edema. IMPRESSION: 1. [id number] respiratory failure, multifactorial. 2. Recent COVID-19 viral pneumonia, status post trach and PEG on 09/24/2020. 3. Hematochezia/melena per GI. 4. Acute blood loss anemia. 5. Atrial fibrillation, on chronic Eliquis. 6. Upper extremity deep venous thrombosis. 7. Chronic obstructive pulmonary disease. 8. Type 2 diabetes. 9. Paroxysmal atrial fibrillation. 10. Severe protein malnutrition. PLAN: 1. We will continue current support with mechanical ventilation at bedtime and trach shield during the day, placed back on assist control if needed. 2. Consult GI, already performed. 3. Monitor H and H. 4. Diabetes management per PCP. 5. We will defer any further antibiotic use to Infectious Disease Service. I do appreciate the privilege in sharing in the patient's care. CHINO JUÁREZ MD DR: NEFTALI/moy JOB#: [id number] / [id number]
[2020-10-12] MEDS: METOPROLOL TART IMMED RELEASE 25 MG TABLET. PO SCH (21:52)
[2020-10-12] MEDS: POTASSIUM CL 20MEQ D5-0.45NACL 1,000 ML IV SCH (22:02)
[2020-10-13] VITALS (27 sets, daily range): BP systolic 109–159; BP diastolic 57–93
[2020-10-13] MEDS: MEROPENEM 500 MG in IV NORMAL SALINE 50ML 50 ML IV SCH ×4 (01:42→18:00)
[2020-10-13 03:29] LABS: BASO # 0.2 x10^3/uL (0.0-0.2); BASO % 1 % (0-3); EOS % 0 % (0-3); HEMATOCRIT 24.8 % (39.0-53.0); HEMOGLOBIN 7.7 g/dL (13.0-17.5); LYMPH # 1.3 x10^3/uL (1.0-4.8); LYMPH % 12 % (24-48); MEAN CORPUSCULAR HEMOGLOBIN 29 pg (25-35); MEAN CORPUSCULAR HGB CONC 31 g/dL (31-37); MEAN CORPUSCULAR VOLUME 92 fL (79-100); MONO # 0.7 x10^3/uL (0.0-1.1); MONO % 7 % (0-9); NEUT # 8.8 x10^3/uL (1.8-7.7); NEUT % 80 % (31-73); PLATELET COUNT 300 x10^3/uL (140-400); RED CELL DISTRIBUTION WIDTH 16.6 % (11.5-14.5)
[2020-10-13 03:41] LABS: ALBUMIN 2.4 g/dL (3.4-5.0); ALBUMIN/GLOBULIN RATIO 0.7 (1.0-1.7); CALCIUM 8.1 mg/dL (8.5-10.1); CREATININE 1.6 mg/dL (0.7-1.3); GFR 44.2; POTASSIUM 4.3 mmol/L (3.5-5.1); TOTAL BILIRUBIN 0.4 mg/dL (0.2-1.0); TOTAL PROTEIN 5.9 g/dL (6.4-8.2)
[2020-10-13] MEDS: INSULIN LISPRO 300 UNITS/3 ML VIAL. SQ SCH ×4 (06:00→18:00)
[2020-10-13] MEDS: IPRATRPIUM/ALBUTEROL 0.5/2.5MG 3 ML NEBU. NEB SCH ×4 (08:25→20:09)
[2020-10-13] MEDS: ATORVASTATIN CALCIUM 20 MG TABLET PO SCH (08:28)
[2020-10-13] MEDS: PANTOPRAZOLE IV PUSH 40 MG VIAL. IVP SCH (08:28)
[2020-10-13] MEDS: AMIODARONE HCL 200 MG TABLET. PO SCH (08:28)
[2020-10-13] MEDS: METOPROLOL TART IMMED RELEASE 25 MG TABLET. PO SCH ×2 (08:28→20:39)
--- NOTE | 2020-10-13 09:27 | PDOC ---
PULMONARY PROGRESS NOTES DATE: 10/13/20 TIME: 09:24 Subjective Patient is resting comfortably on 35% trach shield Utilizes ventilatory support overnight Nursing reports smear of black stool this morning No other concerns Vitals Vital Signs Date Time Temp Pulse Resp B/P (MAP) Pulse Ox O2 Delivery O2 Flow Rate FiO2 10/13/20 09:00 88 18 151/84 (106) 99 Tracheal Collar 10/13/20 08:33 10.0 10/13/20 08:00 98.6 98.6 ROS: No Nausea, No Chest Pain, No Abdominal Pain, No Increase Cough General: Alert HEENT: Other (trach ) Lungs: Clear Cardiovascular: S1, S2 Abdomen: Soft, Non-tender Neuro Exam: Alert Extremities: No Edema, Other Skin: Other (Bilateral wounds ) Labs Laboratory Tests Test 10/12/20 06:40 10/12/20 07:45 10/12/20 08:10 10/12/20 10:35 Prothrombin Time 18.4 SEC (11.7-14.0) Prothromb Time International Ratio 1.6 (0.8-1.1) Activated Partial Thromboplast Time 33 SEC (24-38) White Blood Count 15.2 x10^3/uL (4.0-11.0) Red Blood Count 3.13 x10^6/uL (4.30-5.70) Hemoglobin 9.0 g/dL (13.0-17.5) Hematocrit 28.7 % (39.0-53.0) Mean Corpuscular Volume 92 fL (79-100) Mean Corpuscular Hemoglobin 29 pg (25-35) Mean Corpuscular Hemoglobin Concent 31 g/dL (31-37) Red Cell Distribution Width 16.9 % (11.5-14.5) Platelet Count 342 x10^3/uL (140-400) Neutrophils (%) (Auto) 82 % (31-73) Lymphocytes (%) (Auto) 10 % (24-48) Monocytes (%) (Auto) 6 % (0-9) Eosinophils (%) (Auto) 1 % (0-3) Basophils (%) (Auto) 1 % (0-3) Neutrophils # (Auto) 12.5 x10^3/uL (1.8-7.7) Lymphocytes # (Auto) 1.6 x10^3/uL (1.0-4.8) Monocytes # (Auto) 0.9 x10^3/uL (0.0-1.1) Eosinophils # (Auto) 0.1 x10^3/uL (0.0-0.7) Basophils # (Auto) 0.1 x10^3/uL (0.0-0.2) Sodium Level 145 mmol/L (136-145) Potassium Level 4.6 mmol/L (3.5-5.1) Chloride Level 110 mmol/L (98-107) Carbon Dioxide Level 27 mmol/L (21-32) Anion Gap 8 (6-14) Blood Urea Nitrogen 35 mg/dL (8-26) Creatinine 1.5 mg/dL (0.7-1.3) Estimated GFR (Cockcroft-Gault) 47.6 Glucose Level 209 mg/dL (70-99) Calcium Level 8.1 mg/dL (8.5-10.1) Total Bilirubin 0.4 mg/dL (0.2-1.0) Direct Bilirubin 0.1 mg/dL (0.0-0.2) Aspartate Amino Transf (AST/SGOT) 25 U/L (15-37) Alanine Aminotransferase (ALT/SGPT) 29 U/L (16-63) Alkaline Phosphatase 52 U/L (46-116) Total Protein 5.9 g/dL (6.4-8.2) Albumin 2.5 g/dL (3.4-5.0) Urine Collection Type Unknown Urine Color Yellow Urine Clarity Clear Urine pH 5.0 (<5.0-8.0) Urine Specific [place] 1.025 (1.000-1.030) Urine Protein 30 mg/dL (NEG-TRACE) Urine Glucose (UA) >=1000 mg/dL (NEG) Urine Ketones (Stick) Negative mg/dL (NEG) Urine Blood Large (NEG) Urine Nitrite Negative (NEG) Urine Bilirubin Negative (NEG) Urine Urobilinogen Dipstick 0.2 mg/dL (0.2 mg/dL) Urine Leukocyte Esterase Negative (NEG) Urine RBC 20-40 /HPF (0-2) Urine WBC Occ /HPF (0-4) Urine Squamous Epithelial Cells Few /LPF Urine Amorphous Sediment Present /HPF Urine Bacteria Few /HPF (0-FEW) Urine Hyaline Casts Occasional /HPF Urine Mucus Slight /LPF Stool Occult Blood Positive (NEG) Test 10/12/20 15:45 10/12/20 18:00 10/13/20 03:15 White Blood Count 14.0 x10^3/uL (4.0-11.0) 11.0 x10^3/uL (4.0-11.0) Red Blood Count 3.02 x10^6/uL (4.30-5.70) 2.70 x10^6/uL (4.30-5.70) Hemoglobin 8.7 g/dL (13.0-17.5) 7.7 g/dL (13.0-17.5) Hematocrit 27.9 % (39.0-53.0) 24.8 % (39.0-53.0) Mean Corpuscular Volume 92 fL (79-100) 92 fL (79-100) Mean Corpuscular Hemoglobin 29 pg (25-35) 29 pg (25-35) Mean Corpuscular Hemoglobin Concent 31 g/dL (31-37) 31 g/dL (31-37) Red Cell Distribution Width 16.4 % (11.5-14.5) 16.6 % (11.5-14.5) Platelet Count 285 x10^3/uL (140-400) 300 x10^3/uL (140-400) Neutrophils (%) (Auto) 82 % (31-73) 80 % (31-73) Lymphocytes (%) (Auto) 11 % (24-48) 12 % (24-48) Monocytes (%) (Auto) 6 % (0-9) 7 % (0-9) Eosinophils (%) (Auto) 0 % (0-3) 0 % (0-3) Basophils (%) (Auto) 1 % (0-3) 1 % (0-3) Neutrophils # (Auto) 11.4 x10^3/uL (1.8-7.7) 8.8 x10^3/uL (1.8-7.7) Lymphocytes # (Auto) 1.5 x10^3/uL (1.0-4.8) 1.3 x10^3/uL (1.0-4.8) Monocytes # (Auto) 0.8 x10^3/uL (0.0-1.1) 0.7 x10^3/uL (0.0-1.1) Eosinophils # (Auto) 0.0 x10^3/uL (0.0-0.7) 0.0 x10^3/uL (0.0-0.7) Basophils # (Auto) 0.1 x10^3/uL (0.0-0.2) 0.2 x10^3/uL (0.0-0.2) Glucose (Fingerstick) 227 mg/dL (70-99) Sodium Level 141 mmol/L (136-145) Potassium Level 4.3 mmol/L (3.5-5.1) Chloride Level 109 mmol/L (98-107) Carbon Dioxide Level 26 mmol/L (21-32) Anion Gap 6 (6-14) Blood Urea Nitrogen 33 mg/dL (8-26) Creatinine 1.6 mg/dL (0.7-1.3) Estimated GFR (Cockcroft-Gault) 44.2 BUN/Creatinine Ratio 21 (6-20) Glucose Level 230 mg/dL (70-99) Calcium Level 8.1 mg/dL (8.5-10.1) Total Bilirubin 0.4 mg/dL (0.2-1.0) Aspartate Amino Transf (AST/SGOT) 26 U/L (15-37) Alanine Aminotransferase (ALT/SGPT) 27 U/L (16-63) Alkaline Phosphatase 41 U/L (46-116) Total Protein 5.9 g/dL (6.4-8.2) Albumin 2.4 g/dL (3.4-5.0) Albumin/Globulin Ratio 0.7 (1.0-1.7) Laboratory Tests Test 10/12/20 10:35 10/12/20 15:45 10/12/20 18:00 10/13/20 03:15 Stool Occult Blood Positive (NEG) White Blood Count 14.0 x10^3/uL (4.0-11.0) 11.0 x10^3/uL (4.0-11.0) Red Blood Count 3.02 x10^6/uL (4.30-5.70) 2.70 x10^6/uL (4.30-5.70) Hemoglobin 8.7 g/dL (13.0-17.5) 7.7 g/dL (13.0-17.5) Hematocrit 27.9 % (39.0-53.0) 24.8 % (39.0-53.0) Mean Corpuscular Volume 92 fL (79-100) 92 fL (79-100) Mean Corpuscular Hemoglobin 29 pg (25-35) 29 pg (25-35) Mean Corpuscular Hemoglobin Concent 31 g/dL (31-37) 31 g/dL (31-37) Red Cell Distribution Width 16.4 % (11.5-14.5) 16.6 % (11.5-14.5) Platelet Count 285 x10^3/uL (140-400) 300 x10^3/uL (140-400) Neutrophils (%) (Auto) 82 % (31-73) 80 % (31-73) Lymphocytes (%) (Auto) 11 % (24-48) 12 % (24-48) Monocytes (%) (Auto) 6 % (0-9) 7 % (0-9) Eosinophils (%) (Auto) 0 % (0-3) 0 % (0-3) Basophils (%) (Auto) 1 % (0-3) 1 % (0-3) Neutrophils # (Auto) 11.4 x10^3/uL (1.8-7.7) 8.8 x10^3/uL (1.8-7.7) Lymphocytes # (Auto) 1.5 x10^3/uL (1.0-4.8) 1.3 x10^3/uL (1.0-4.8) Monocytes # (Auto) 0.8 x10^3/uL (0.0-1.1) 0.7 x10^3/uL (0.0-1.1) Eosinophils # (Auto) 0.0 x10^3/uL (0.0-0.7) 0.0 x10^3/uL (0.0-0.7) Basophils # (Auto) 0.1 x10^3/uL (0.0-0.2) 0.2 x10^3/uL (0.0-0.2) Glucose (Fingerstick) 227 mg/dL (70-99) Sodium Level 141 mmol/L (136-145) Potassium Level 4.3 mmol/L (3.5-5.1) Chloride Level 109 mmol/L (98-107) Carbon Dioxide Level 26 mmol/L (21-32) Anion Gap 6 (6-14) Blood Urea Nitrogen 33 mg/dL (8-26) Creatinine 1.6 mg/dL (0.7-1.3) Estimated GFR (Cockcroft-Gault) 44.2 BUN/Creatinine Ratio 21 (6-20) Glucose Level 230 mg/dL (70-99) Calcium Level 8.1 mg/dL (8.5-10.1) Total Bilirubin 0.4 mg/dL (0.2-1.0) Aspartate Amino Transf (AST/SGOT) 26 U/L (15-37) Alanine Aminotransferase (ALT/SGPT) 27 U/L (16-63) Alkaline Phosphatase 41 U/L (46-116) Total Protein 5.9 g/dL (6.4-8.2) Albumin 2.4 g/dL (3.4-5.0) Albumin/Globulin Ratio 0.7 (1.0-1.7) Medications Active Scripts Medications Dose Route/Sig Max Daily Dose Days Date Category Colace (Docusate Sodium) 100 Mg Capsule 1 Cap PO BID 15 10/12/20 Reported Tylenol (Acetaminophen) 325 Mg Tablet 650 Mg PO PRN Q6HRS PRN 10/12/20 Reported Trazodone Hcl 50 Mg Tablet 1 Tab PO QHS 10/12/20 Reported Protonix (Pantoprazole Sodium) 20 Mg Tablet.dr 1 Tab PO DAILY 10/12/20 Reported Metoprolol Tartrate 25 Mg Tablet 1 Tab PO BID 10/12/20 Reported Merrem (Meropenem) 500 Mg Vial 500 Mg IV Q6HRS 10/12/20 Reported Zyvox (Linezolid) 600 Mg Tablet 600 Mg PO BID 10/12/20 Reported Duoneb 0.5-3(2.5) Mg/3 Ml (Albuterol/Ipratropium) 3 Ml Ampul.neb 3 Ml NEB QID 10/12/20 Reported Lantus Solostar (Insulin Glargine,Hum.rec.anlog) 100 Unit/1 Ml Insuln.pen 22 Unit SQ QHS 10/12/20 Reported Atorvastatin Calcium 20 Mg Tablet 1 Tab PO DAILY 10/12/20 Reported Amlodipine Besylate 5 Mg Tablet 5 Mg PO DAILY 10/12/20 Reported Amiodarone Hcl 200 Mg Tablet 1 Tab PO DAILY 10/12/20 Reported Impression . IMPRESSION: 1. [id number] respiratory failure, multifactorial. 2. Recent COVID-19 viral pneumonia, status post trach and PEG on 09/24/2020. 3. Hematochezia/melena per GI. 4. Acute blood loss anemia. 5. Atrial fibrillation, on chronic Eliquis. 6. Upper extremity deep venous thrombosis. 7. Chronic obstructive pulmonary disease. 8. Type 2 diabetes. 9. Paroxysmal atrial fibrillation. 10. Severe protein malnutrition. Plan . PLAN: Continue trach shield during the day and mechanical ventilation overnight Trach care daily, as needed suctioning Follow GI recommendations, no plans for EGD or colonoscopy at this time, checking for C. difficile, stool culture and continuing PPI Follow infectious disease recommendations in regards to antibiotic therapy Monitor hemoglobin, transfuse if hemoglobin less than 7 Continue to hold Eliquis Follow wound care recommendations, every 2 turn for offloading Diabetes per PCP Discussed with CHINO ABRAHAM MD Oct 13, 2020 09:27
--- NOTE | 2020-10-13 10:04 | PDOC ---
Date of Service: DATE: 10/13/20 TIME: 09:58 Subjective: Subjective: He is more responsive today - denies pain, indicates had previous colonoscopy, denies previous episodes of GI bleeding. Objective: Objective: Per nursing - "large bloody stool yesterday afternoon." Vital Signs: Vital Signs Date Time Temp Pulse Resp B/P (MAP) Pulse Ox O2 Delivery O2 Flow Rate FiO2 10/13/20 09:00 88 18 151/84 (106) 99 Tracheal Collar 10/13/20 08:33 10.0 10/13/20 08:00 98.6 98.6 Labs: Laboratory Tests Test 10/12/20 10:35 10/12/20 15:45 10/12/20 18:00 10/13/20 03:15 Stool Occult Blood Positive White Blood Count 14.0 x10^3/uL 11.0 x10^3/uL Red Blood Count 3.02 x10^6/uL 2.70 x10^6/uL Hemoglobin 8.7 g/dL 7.7 g/dL Hematocrit 27.9 % 24.8 % Mean Corpuscular Volume 92 fL 92 fL Mean Corpuscular Hemoglobin 29 pg 29 pg Mean Corpuscular Hemoglobin Concent 31 g/dL 31 g/dL Red Cell Distribution Width 16.4 % 16.6 % Platelet Count 285 x10^3/uL 300 x10^3/uL Neutrophils (%) (Auto) 82 % 80 % Lymphocytes (%) (Auto) 11 % 12 % Monocytes (%) (Auto) 6 % 7 % Eosinophils (%) (Auto) 0 % 0 % Basophils (%) (Auto) 1 % 1 % Neutrophils # (Auto) 11.4 x10^3/uL 8.8 x10^3/uL Lymphocytes # (Auto) 1.5 x10^3/uL 1.3 x10^3/uL Monocytes # (Auto) 0.8 x10^3/uL 0.7 x10^3/uL Eosinophils # (Auto) 0.0 x10^3/uL 0.0 x10^3/uL Basophils # (Auto) 0.1 x10^3/uL 0.2 x10^3/uL Glucose (Fingerstick) 227 mg/dL Sodium Level 141 mmol/L Potassium Level 4.3 mmol/L Chloride Level 109 mmol/L Carbon Dioxide Level 26 mmol/L Anion Gap 6 Blood Urea Nitrogen 33 mg/dL Creatinine 1.6 mg/dL Estimated GFR (Cockcroft-Gault) 44.2 BUN/Creatinine Ratio 21 Glucose Level 230 mg/dL Calcium Level 8.1 mg/dL Total Bilirubin 0.4 mg/dL Aspartate Amino Transf (AST/SGOT) 26 U/L Alanine Aminotransferase (ALT/SGPT) 27 U/L Alkaline Phosphatase 41 U/L Total Protein 5.9 g/dL Albumin 2.4 g/dL Albumin/Globulin Ratio 0.7 Test 10/13/20 09:54 Glucose (Fingerstick) 222 mg/dL PE: GEN: NAD LUNGS: trach collar, clear anteriorly HEART: RRR ABD: soft, non-tender, quiet BS NEURO/PSYCH: awake and alert A/P: Hematochezia/melena Anemia - Hgb drift to 7.7 Recent COVID-19 infection s/p tracheostomy and PEG 09/24/20 A Fib - Eliquis held LIBAN - h/o same requiring HD -- Hgb drifting, stable vitals, last bled yesterday afternoon. D/w nurse - okay for meds through PEG, would hold on feeds for now. Stool tests pending. Will d/w Dr. Peterson. Justicifation of Admission Dx: Justifications for Admission: Justification of Admission Dx: Yes YOSVANY MCINTOSH Oct 13, 2020 10:04
--- NOTE | 2020-10-13 10:15 | PDOC ---
PROGRESS NOTES Date of Service DATE: 10/13/20 TIME: 10:09 Subjective Subjective he is comfortable. ani reports large black stool yesterday and a smear today. hgb lower 7.7. bp high. blood sugar 220.lab reviewed. Objective Objective Vital Signs Date Time Temp Pulse Resp B/P (MAP) Pulse Ox O2 Delivery O2 Flow Rate FiO2 10/13/20 09:00 88 18 151/84 (106) 99 Tracheal Collar 10/13/20 08:33 10.0 10/13/20 08:00 98.6 98.6 Intake and Output 10/13/20 07:00 Intake Total 2229 ml Output Total 1165 ml Balance 1064 ml Intake Oral 0 ml IV Total 2229 ml Output Urine Total 1165 ml Physical Exam Abdomen: Normal bowel sounds, Soft, No tenderness, Other (g tube) Heart: Regular rate, Normal S1, Normal S2 Extremities: No edema General: Alert HEENT: Atraumatic Lungs: Other (clear anteriorly. trach shield) Neuro: Other (nods head to questions) Psych/Mental Status: Mood NL Skin: No rashes Assessment Assessment Problems1. Acute gastrointestinal bleed. melena noted at [facility]. hematochezia at [facility]. 2. Acute blood loss anemia on top of anemia of chronic disease. 3. Acute on chronic hypoxic respiratory failure. 4. Chronic obstructive pulmonary disease. 5. Recent COVID-19 pneumonia, out of isolation. 6. Diabetes mellitus type 2, on insulin.with hyperglycemia 7. Hypertension. 8. Paroxysmal atrial fibrillation.currently in nsr. off eliquis due ti GI bleed 9. Hyperlipidemia. 10. Deep vein thrombosis, right upper extremity. 11. Morbid obesity. 12. Tracheostomy. 13. Severe protein-calorie malnutrition. 14. Oropharyngeal dysphagia, previously maintained on gastrostomy tube feedings. 15. Acute kidney injury, which improved significantly off of hemodialysis. Medical Problems: (1) Altered mental status Status: Acute (2) Hematochezia Status: Acute (3) Tracheostomy care Status: Acute Plan Plan of Care follow hgb. transfuse if hgb less than 7. ventilator support at tracheostomy care hold TF d/c eliquis continue iv fluids continue iv meropenem continue metoprolol and amiodarone Comment Review of Relevant I have reviewed the following items willam (where applicable) has been applied. Labs Laboratory Tests Test 10/12/20 06:40 10/12/20 07:45 10/12/20 08:10 10/12/20 10:35 Prothrombin Time 18.4 SEC (11.7-14.0) Prothromb Time International Ratio 1.6 (0.8-1.1) Activated Partial Thromboplast Time 33 SEC (24-38) White Blood Count 15.2 x10^3/uL (4.0-11.0) Red Blood Count 3.13 x10^6/uL (4.30-5.70) Hemoglobin 9.0 g/dL (13.0-17.5) Hematocrit 28.7 % (39.0-53.0) Mean Corpuscular Volume 92 fL (79-100) Mean Corpuscular Hemoglobin 29 pg (25-35) Mean Corpuscular Hemoglobin Concent 31 g/dL (31-37) Red Cell Distribution Width 16.9 % (11.5-14.5) Platelet Count 342 x10^3/uL (140-400) Neutrophils (%) (Auto) 82 % (31-73) Lymphocytes (%) (Auto) 10 % (24-48) Monocytes (%) (Auto) 6 % (0-9) Eosinophils (%) (Auto) 1 % (0-3) Basophils (%) (Auto) 1 % (0-3) Neutrophils # (Auto) 12.5 x10^3/uL (1.8-7.7) Lymphocytes # (Auto) 1.6 x10^3/uL (1.0-4.8) Monocytes # (Auto) 0.9 x10^3/uL (0.0-1.1) Eosinophils # (Auto) 0.1 x10^3/uL (0.0-0.7) Basophils # (Auto) 0.1 x10^3/uL (0.0-0.2) Sodium Level 145 mmol/L (136-145) Potassium Level 4.6 mmol/L (3.5-5.1) Chloride Level 110 mmol/L (98-107) Carbon Dioxide Level 27 mmol/L (21-32) Anion Gap 8 (6-14) Blood Urea Nitrogen 35 mg/dL (8-26) Creatinine 1.5 mg/dL (0.7-1.3) Estimated GFR (Cockcroft-Gault) 47.6 Glucose Level 209 mg/dL (70-99) Calcium Level 8.1 mg/dL (8.5-10.1) Total Bilirubin 0.4 mg/dL (0.2-1.0) Direct Bilirubin 0.1 mg/dL (0.0-0.2) Aspartate Amino Transf (AST/SGOT) 25 U/L (15-37) Alanine Aminotransferase (ALT/SGPT) 29 U/L (16-63) Alkaline Phosphatase 52 U/L (46-116) Total Protein 5.9 g/dL (6.4-8.2) Albumin 2.5 g/dL (3.4-5.0) Urine Collection Type Unknown Urine Color Yellow Urine Clarity Clear Urine pH 5.0 (<5.0-8.0) Urine Specific [place] 1.025 (1.000-1.030) Urine Protein 30 mg/dL (NEG-TRACE) Urine Glucose (UA) >=1000 mg/dL (NEG) Urine Ketones (Stick) Negative mg/dL (NEG) Urine Blood Large (NEG) Urine Nitrite Negative (NEG) Urine Bilirubin Negative (NEG) Urine Urobilinogen Dipstick 0.2 mg/dL (0.2 mg/dL) Urine Leukocyte Esterase Negative (NEG) Urine RBC 20-40 /HPF (0-2) Urine WBC Occ /HPF (0-4) Urine Squamous Epithelial Cells Few /LPF Urine Amorphous Sediment Present /HPF Urine Bacteria Few /HPF (0-FEW) Urine Hyaline Casts Occasional /HPF Urine Mucus Slight /LPF Stool Occult Blood Positive (NEG) Test 10/12/20 15:45 10/12/20 18:00 10/13/20 03:15 10/13/20 09:54 White Blood Count 14.0 x10^3/uL (4.0-11.0) 11.0 x10^3/uL (4.0-11.0) Red Blood Count 3.02 x10^6/uL (4.30-5.70) 2.70 x10^6/uL (4.30-5.70) Hemoglobin 8.7 g/dL (13.0-17.5) 7.7 g/dL (13.0-17.5) Hematocrit 27.9 % (39.0-53.0) 24.8 % (39.0-53.0) Mean Corpuscular Volume 92 fL (79-100) 92 fL (79-100) Mean Corpuscular Hemoglobin 29 pg (25-35) 29 pg (25-35) Mean Corpuscular Hemoglobin Concent 31 g/dL (31-37) 31 g/dL (31-37) Red Cell Distribution Width 16.4 % (11.5-14.5) 16.6 % (11.5-14.5) Platelet Count 285 x10^3/uL (140-400) 300 x10^3/uL (140-400) Neutrophils (%) (Auto) 82 % (31-73) 80 % (31-73) Lymphocytes (%) (Auto) 11 % (24-48) 12 % (24-48) Monocytes (%) (Auto) 6 % (0-9) 7 % (0-9) Eosinophils (%) (Auto) 0 % (0-3) 0 % (0-3) Basophils (%) (Auto) 1 % (0-3) 1 % (0-3) Neutrophils # (Auto) 11.4 x10^3/uL (1.8-7.7) 8.8 x10^3/uL (1.8-7.7) Lymphocytes # (Auto) 1.5 x10^3/uL (1.0-4.8) 1.3 x10^3/uL (1.0-4.8) Monocytes # (Auto) 0.8 x10^3/uL (0.0-1.1) 0.7 x10^3/uL (0.0-1.1) Eosinophils # (Auto) 0.0 x10^3/uL (0.0-0.7) 0.0 x10^3/uL (0.0-0.7) Basophils # (Auto) 0.1 x10^3/uL (0.0-0.2) 0.2 x10^3/uL (0.0-0.2) Glucose (Fingerstick) 227 mg/dL (70-99) 222 mg/dL (70-99) Sodium Level 141 mmol/L (136-145) Potassium Level 4.3 mmol/L (3.5-5.1) Chloride Level 109 mmol/L (98-107) Carbon Dioxide Level 26 mmol/L (21-32) Anion Gap 6 (6-14) Blood Urea Nitrogen 33 mg/dL (8-26) Creatinine 1.6 mg/dL (0.7-1.3) Estimated GFR (Cockcroft-Gault) 44.2 BUN/Creatinine Ratio 21 (6-20) Glucose Level 230 mg/dL (70-99) Calcium Level 8.1 mg/dL (8.5-10.1) Total Bilirubin 0.4 mg/dL (0.2-1.0) Aspartate Amino Transf (AST/SGOT) 26 U/L (15-37) Alanine Aminotransferase (ALT/SGPT) 27 U/L (16-63) Alkaline Phosphatase 41 U/L (46-116) Total Protein 5.9 g/dL (6.4-8.2) Albumin 2.4 g/dL (3.4-5.0) Albumin/Globulin Ratio 0.7 (1.0-1.7) Laboratory Tests Test 10/12/20 10:35 10/12/20 15:45 10/12/20 18:00 10/13/20 03:15 Stool Occult Blood Positive (NEG) White Blood Count 14.0 x10^3/uL (4.0-11.0) 11.0 x10^3/uL (4.0-11.0) Red Blood Count 3.02 x10^6/uL (4.30-5.70) 2.70 x10^6/uL (4.30-5.70) Hemoglobin 8.7 g/dL (13.0-17.5) 7.7 g/dL (13.0-17.5) Hematocrit 27.9 % (39.0-53.0) 24.8 % (39.0-53.0) Mean Corpuscular Volume 92 fL (79-100) 92 fL (79-100) Mean Corpuscular Hemoglobin 29 pg (25-35) 29 pg (25-35) Mean Corpuscular Hemoglobin Concent 31 g/dL (31-37) 31 g/dL (31-37) Red Cell Distribution Width 16.4 % (11.5-14.5) 16.6 % (11.5-14.5) Platelet Count 285 x10^3/uL (140-400) 300 x10^3/uL (140-400) Neutrophils (%) (Auto) 82 % (31-73) 80 % (31-73) Lymphocytes (%) (Auto) 11 % (24-48) 12 % (24-48) Monocytes (%) (Auto) 6 % (0-9) 7 % (0-9) Eosinophils (%) (Auto) 0 % (0-3) 0 % (0-3) Basophils (%) (Auto) 1 % (0-3) 1 % (0-3) Neutrophils # (Auto) 11.4 x10^3/uL (1.8-7.7) 8.8 x10^3/uL (1.8-7.7) Lymphocytes # (Auto) 1.5 x10^3/uL (1.0-4.8) 1.3 x10^3/uL (1.0-4.8) Monocytes # (Auto) 0.8 x10^3/uL (0.0-1.1) 0.7 x10^3/uL (0.0-1.1) Eosinophils # (Auto) 0.0 x10^3/uL (0.0-0.7) 0.0 x10^3/uL (0.0-0.7) Basophils # (Auto) 0.1 x10^3/uL (0.0-0.2) 0.2 x10^3/uL (0.0-0.2) Glucose (Fingerstick) 227 mg/dL (70-99) Sodium Level 141 mmol/L (136-145) Potassium Level 4.3 mmol/L (3.5-5.1) Chloride Level 109 mmol/L (98-107) Carbon Dioxide Level 26 mmol/L (21-32) Anion Gap 6 (6-14) Blood Urea Nitrogen 33 mg/dL (8-26) Creatinine 1.6 mg/dL (0.7-1.3) Estimated GFR (Cockcroft-Gault) 44.2 BUN/Creatinine Ratio 21 (6-20) Glucose Level 230 mg/dL (70-99) Calcium Level 8.1 mg/dL (8.5-10.1) Total Bilirubin 0.4 mg/dL (0.2-1.0) Aspartate Amino Transf (AST/SGOT) 26 U/L (15-37) Alanine Aminotransferase (ALT/SGPT) 27 U/L (16-63) Alkaline Phosphatase 41 U/L (46-116) Total Protein 5.9 g/dL (6.4-8.2) Albumin 2.4 g/dL (3.4-5.0) Albumin/Globulin Ratio 0.7 (1.0-1.7) Test 10/13/20 09:54 Glucose (Fingerstick) 222 mg/dL (70-99) Medications Current Medications Iohexol (Omnipaque 300 Mg/ml) 75 ml 1X ONCE IV Last administered on 10/12/20at 08:15; Start 10/12/20 at 08:15; Stop 10/12/20 at 08:16; Status DC Info (CONTRAST GIVEN -- Rx MONITORING) 1 each PRN DAILY PRN MC SEE COMMENTS; Start 10/12/20 at 08:30; Stop 10/14/20 at 08:29 Ondansetron HCl (Zofran) 4 mg PRN Q8HRS PRN IV NAUSEA/VOMITING; Start 10/12/20 at 10:15; Stop 10/12/20 at 11:34; Status DC Morphine Sulfate (Morphine Sulfate) 4 mg PRN Q2HR PRN IV PAIN; Start 10/12/20 at 10:15; Stop 10/13/20 at 10:14 Potassium Chloride/Dextrose/ Sod Cl 1,000 ml @ 75 mls/hr [id number] IV Last administered on 10/12/20at 11:46; Start 10/12/20 at 10:30; Stop 10/12/20 at 23:49; Status DC Pantoprazole Sodium (PROTONIX VIAL for IV PUSH) 40 mg DAILY IVP Last administered on 10/13/20at 08:28; Start 10/13/20 at 09:00 Meropenem 500 mg/ Sodium Chloride 50 ml @ 100 mls/hr Q6HRS IV Last administered on 10/13/20at 05:42; Start 10/12/20 at 18:00 Linezolid/Dextrose 300 ml @ 300 mls/hr Q12HR IV Last administered on 10/13/20at 08:27; Start 10/12/20 at 21:00 Albuterol/ Ipratropium (Duoneb) 3 ml RTQID NEB Last administered on 10/13/20at 08:25; Start 10/12/20 at 12:00 Insulin Human Lispro (HumaLOG) BG 300-39,9=4 units... Q6HRS SQ ; Start 10/12/20 at 12:00 Metoprolol Tartrate (Lopressor Vial) 5 mg PRN Q6HRS PRN IVP TACHYCARDIA AFIB RVR RATE>120; Start 10/12/20 at 10:30 Ondansetron HCl (Zofran) 4 mg Q6HRS PRN IVP NAUSEA/VOMITING; Start 10/12/20 at 10:30; Stop 10/12/20 at 10:47; Status DC Linezolid/Dextrose 300 ml @ 300 mls/hr ONCE ONCE IV Last administered on 10/12/20at 11:50; Start 10/12/20 at 11:30; Stop 10/12/20 at 12:29; Status DC Meropenem 500 mg/ Sodium Chloride 50 ml @ 100 mls/hr ONCE ONCE IV Last administered on 10/12/20at 11:46; Start 10/12/20 at 11:00; Stop 10/12/20 at 11:29; Status DC Potassium Chloride/Dextrose/ Sod Cl 1,000 ml @ 75 mls/hr [id number] IV Last administered on 10/12/20at 22:02; Start 10/12/20 at 23:50 Ondansetron HCl (Zofran) 4 mg PRN Q6HRS PRN IVP NAUSEA/VOMITING; Start 10/12/20 at 11:00 Amiodarone HCl (Cordarone) 200 mg DAILY PO Last administered on 10/13/20at 08:28; Start 10/12/20 at 15:30 Atorvastatin Calcium (Lipitor) 20 mg DAILY PO Last administered on 10/13/20at 08:28; Start 10/12/20 at 15:30 Metoprolol Tartrate (Lopressor) 25 mg BID PO Last administered on 10/13/20at 08:28; Start 10/12/20 at 21:00 Vitamin A/Vitamin D (Vitamin A & D Ointment) 1 [place]aqu[place] PRN Q1HR PRN TP SKIN PROTECTION; Start 10/12/20 at 17:15 Active Scripts Active Reported Colace (Docusate Sodium) 100 Mg Capsule 1 Cap PO BID 15 Days Tylenol (Acetaminophen) 325 Mg Tablet 650 Mg PO PRN Q6HRS PRN Trazodone Hcl 50 Mg Tablet 1 Tab PO QHS Protonix (Pantoprazole Sodium) 20 Mg Tablet.dr 1 Tab PO DAILY Metoprolol Tartrate 25 Mg Tablet 1 Tab PO BID Merrem (Meropenem) 500 Mg Vial 500 Mg IV Q6HRS Zyvox (Linezolid) 600 Mg Tablet 600 Mg PO BID Duoneb 0.5-3(2.5) Mg/3 Ml (Albuterol/Ipratropium) 3 Ml Ampul.neb 3 Ml NEB QID Lantus Solostar (Insulin Glargine,Hum.rec.anlog) 100 Unit/1 Ml Insuln.pen 22 Unit SQ QHS Atorvastatin Calcium 20 Mg Tablet 1 Tab PO DAILY Amlodipine Besylate 5 Mg Tablet 5 Mg PO DAILY Amiodarone Hcl 200 Mg Tablet 1 Tab PO DAILY Vitals/I & O Vital Sign - Last 24 Hours 10/12/20 10/12/20 10/12/20 10/12/20 10:20 10:58 11:20 11:50 Pulse 130 123 126 128 B/P (MAP) 166/90 (115) 129/79 (96) 134/92 (106) 135/98 (110) Pulse Ox 99 96 98 98 O2 Delivery Tracheal Collar Tracheal Collar Tracheal Collar Tracheal Collar O2 Flow Rate 15.0 15.0 15.0 15.0 10/12/20 10/12/20 10/12/20 10/12/20 12:30 13:00 14:00 15:00 Temp 98.4 98.4 Pulse 111 112 109 Resp 20 22 22 B/P (MAP) 140/81 (100) 138/72 (94) 141/79 (99) Pulse Ox 99 99 99 O2 Delivery Trach Collar Tracheal Collar Tracheal Collar Tracheal Collar O2 Flow Rate 10.0 10/12/20 10/12/20 10/12/20 10/12/20 16:00 16:00 16:10 16:39 Temp 98.1 98.1 Pulse 104 106 Resp 18 B/P (MAP) 132/72 (92) 139/72 Pulse Ox 99 100 O2 Delivery Trach Collar Tracheal Collar Tracheal Collar O2 Flow Rate 10.0 10.0 10/12/20 10/12/20 10/12/2021 17:00 18:00 19:00 20:00 Pulse 95 98 98 Resp 18 20 20 B/P (MAP) 122/70 (87) 150/85 (106) 145/84 (104) Pulse Ox 99 99 99 O2 Delivery Tracheal Collar Tracheal Collar Tracheal Collar Trach Collar O2 Flow Rate 10.0 10/12/20 10/12/20 10/12/20 10/12/20 20:00 20:44 21:00 21:52 Temp 99.0 99.0 Pulse 98 106 106 Resp 20 20 B/P (MAP) 150/88 (108) 147/85 (105) 147/85 Pulse Ox 99 100 99 O2 Delivery Tracheal Collar Tracheal Collar Tracheal Collar O2 Flow Rate 10.0 10/12/20 10/12/20 10/12/20 10/13/20 22:00 23:00 23:59 00:01 Temp 99.2 99.2 Pulse 104 91 91 Resp 20 20 20 B/P (MAP) 147/87 (107) 131/75 (93) 131/75 (93) Pulse Ox 99 100 100 O2 Delivery Tracheal Collar Tracheal Collar Trach Collar Ventilator O2 Flow Rate 10.0 10/13/20 10/13/20 10/13/20 10/13/20 00:02 01:00 02:00 03:00 Pulse 92 99 97 Resp 20 20 20 B/P (MAP) 119/74 (89) 131/83 (99) 153/77 (102) Pulse Ox 98 100 100 100 O2 Delivery Ventilator Ventilator Ventilator Ventilator 10/13/20 10/13/20 10/13/20 10/13/20 04:00 04:00 05:00 05:01 Temp 100.2 100.2 Pulse 97 97 Resp 26 20 B/P (MAP) 155/82 (106) 146/84 (104) Pulse Ox 97 98 98 O2 Delivery Trach Collar Ventilator Ventilator Ventilator O2 Flow Rate 10.0 10/13/20 10/13/20 10/13/20 10/13/20 06:00 07:00 07:45 08:00 Temp 98.6 98.6 Pulse 98 97 95 Resp 20 18 20 B/P (MAP) 109/57 (74) 159/87 (111) 159/93 (115) Pulse Ox 98 99 O2 Delivery Ventilator Ventilator Trach Collar Ventilator O2 Flow Rate 10.0 10/13/20 10/13/20 10/13/20 10/13/20 08:28 08:28 08:33 09:00 Pulse 95 95 88 Resp 18 B/P (MAP) 159/93 159/93 151/84 (106) Pulse Ox 100 99 O2 Delivery Tracheal Collar Tracheal Collar O2 Flow Rate 10.0 Intake and Output 10/12/20 10/12/20 10/13/20 15:00 23:00 07:00 Intake Total 1300 ml 929 ml Output Total 180 ml 310 ml 675 ml Balance -180 ml 990 ml 254 ml Justifications for Admission Other Justification GLENNY GANN MD Oct 13, 2020 10:15
[2020-10-13 10:33] LABS: HEMATOCRIT 21.7 % (39.0-53.0); RED BLOOD COUNT 2.36 x10^6/uL (4.30-5.70); RED CELL DISTRIBUTION WIDTH 16.4 % (11.5-14.5); WHITE BLOOD COUNT 9.8 x10^3/uL (4.0-11.0)
--- NOTE | 2020-10-13 11:06 | PDOC ---
Infectious Disease Note Vital Signs: Vital Signs Vital Signs Date Time Temp Pulse Resp B/P (MAP) Pulse Ox O2 Delivery O2 Flow Rate FiO2 10/13/20 10:00 91 20 134/84 (101) 100 Tracheal Collar 10/13/20 08:33 10.0 10/13/20 08:00 98.6 98.6 Medications: Inpatient Meds: Medications reviewed. Labs: Lab Laboratory Tests Test 10/12/20 15:45 10/12/20 18:00 10/13/20 03:15 10/13/20 09:54 White Blood Count 14.0 x10^3/uL (4.0-11.0) 11.0 x10^3/uL (4.0-11.0) Red Blood Count 3.02 x10^6/uL (4.30-5.70) 2.70 x10^6/uL (4.30-5.70) Hemoglobin 8.7 g/dL (13.0-17.5) 7.7 g/dL (13.0-17.5) Hematocrit 27.9 % (39.0-53.0) 24.8 % (39.0-53.0) Mean Corpuscular Volume 92 fL (79-100) 92 fL (79-100) Mean Corpuscular Hemoglobin 29 pg (25-35) 29 pg (25-35) Mean Corpuscular Hemoglobin Concent 31 g/dL (31-37) 31 g/dL (31-37) Red Cell Distribution Width 16.4 % (11.5-14.5) 16.6 % (11.5-14.5) Platelet Count 285 x10^3/uL (140-400) 300 x10^3/uL (140-400) Neutrophils (%) (Auto) 82 % (31-73) 80 % (31-73) Lymphocytes (%) (Auto) 11 % (24-48) 12 % (24-48) Monocytes (%) (Auto) 6 % (0-9) 7 % (0-9) Eosinophils (%) (Auto) 0 % (0-3) 0 % (0-3) Basophils (%) (Auto) 1 % (0-3) 1 % (0-3) Neutrophils # (Auto) 11.4 x10^3/uL (1.8-7.7) 8.8 x10^3/uL (1.8-7.7) Lymphocytes # (Auto) 1.5 x10^3/uL (1.0-4.8) 1.3 x10^3/uL (1.0-4.8) Monocytes # (Auto) 0.8 x10^3/uL (0.0-1.1) 0.7 x10^3/uL (0.0-1.1) Eosinophils # (Auto) 0.0 x10^3/uL (0.0-0.7) 0.0 x10^3/uL (0.0-0.7) Basophils # (Auto) 0.1 x10^3/uL (0.0-0.2) 0.2 x10^3/uL (0.0-0.2) Glucose (Fingerstick) 227 mg/dL (70-99) 222 mg/dL (70-99) Sodium Level 141 mmol/L (136-145) Potassium Level 4.3 mmol/L (3.5-5.1) Chloride Level 109 mmol/L (98-107) Carbon Dioxide Level 26 mmol/L (21-32) Anion Gap 6 (6-14) Blood Urea Nitrogen 33 mg/dL (8-26) Creatinine 1.6 mg/dL (0.7-1.3) Estimated GFR (Cockcroft-Gault) 44.2 BUN/Creatinine Ratio 21 (6-20) Glucose Level 230 mg/dL (70-99) Calcium Level 8.1 mg/dL (8.5-10.1) Total Bilirubin 0.4 mg/dL (0.2-1.0) Aspartate Amino Transf (AST/SGOT) 26 U/L (15-37) Alanine Aminotransferase (ALT/SGPT) 27 U/L (16-63) Alkaline Phosphatase 41 U/L (46-116) Total Protein 5.9 g/dL (6.4-8.2) Albumin 2.4 g/dL (3.4-5.0) Albumin/Globulin Ratio 0.7 (1.0-1.7) Objective: Assessment: pt seen and examined ID consult to follow D/W [employer] Plan: Plan of Care thank you LESLI MONTES MD Oct 13, 2020 11:06
[2020-10-13 11:09] LABS: HEMOGLOBIN 6.9 g/dL (13.0-17.5)
--- NOTE | 2020-10-13 11:49 | NUR ---
PT/OT/ST request for orders: Screen complete and indication for PT/OT/ST noted. Please order PT/OT/ST if you agree. Thanks Aman Guillory PT
[2020-10-13] MEDS: DOXYCYCLINE HYCLATE 100 MG in IV DEXTROSE 5% 100ML 100 ML IV SCH ×2 (12:00→20:39)
--- NOTE | 2020-10-13 12:36 | PDOC ---
ARMANI MAE MD [facility]ER[facility] IMMUNOLOGY 10/13/20 1236: CARDIO Progress Notes Date and Time Date of Service 10/13/2020 Time of Evaluation 1200 Subjective Subjective: Other (Nonverbal) Vitals Vitals Vital Signs Date Time Temp Pulse Resp B/P (MAP) Pulse Ox O2 Delivery O2 Flow Rate FiO2 10/13/20 12:15 99 Tracheal Collar 10.0 10/13/20 12:00 89 20 138/80 (99) 10/13/20 08:00 98.6 98.6 Weight Weight [ ] Input and Output Intake and Output Intake and Output 10/13/20 07:00 Intake Total 2229 ml Output Total 1165 ml Balance 1064 ml Intake Oral 0 ml IV Total 2229 ml Output Urine Total 1165 ml Laboratory Labs Laboratory Tests Test 10/12/20 15:45 10/12/20 18:00 10/13/20 03:15 10/13/20 09:52 White Blood Count 14.0 x10^3/uL (4.0-11.0) 11.0 x10^3/uL (4.0-11.0) 9.8 x10^3/uL (4.0-11.0) Red Blood Count 3.02 x10^6/uL (4.30-5.70) 2.70 x10^6/uL (4.30-5.70) 2.36 x10^6/uL (4.30-5.70) Hemoglobin 8.7 g/dL (13.0-17.5) 7.7 g/dL (13.0-17.5) 6.9 g/dL (13.0-17.5) Hematocrit 27.9 % (39.0-53.0) 24.8 % (39.0-53.0) 21.7 % (39.0-53.0) Mean Corpuscular Volume 92 fL (79-100) 92 fL (79-100) 92 fL (79-100) Mean Corpuscular Hemoglobin 29 pg (25-35) 29 pg (25-35) 29 pg (25-35) Mean Corpuscular Hemoglobin Concent 31 g/dL (31-37) 31 g/dL (31-37) 32 g/dL (31-37) Red Cell Distribution Width 16.4 % (11.5-14.5) 16.6 % (11.5-14.5) 16.4 % (11.5-14.5) Platelet Count 285 x10^3/uL (140-400) 300 x10^3/uL (140-400) 180 x10^3/uL (140-400) Neutrophils (%) (Auto) 82 % (31-73) 80 % (31-73) Lymphocytes (%) (Auto) 11 % (24-48) 12 % (24-48) Monocytes (%) (Auto) 6 % (0-9) 7 % (0-9) Eosinophils (%) (Auto) 0 % (0-3) 0 % (0-3) Basophils (%) (Auto) 1 % (0-3) 1 % (0-3) Neutrophils # (Auto) 11.4 x10^3/uL (1.8-7.7) 8.8 x10^3/uL (1.8-7.7) Lymphocytes # (Auto) 1.5 x10^3/uL (1.0-4.8) 1.3 x10^3/uL (1.0-4.8) Monocytes # (Auto) 0.8 x10^3/uL (0.0-1.1) 0.7 x10^3/uL (0.0-1.1) Eosinophils # (Auto) 0.0 x10^3/uL (0.0-0.7) 0.0 x10^3/uL (0.0-0.7) Basophils # (Auto) 0.1 x10^3/uL (0.0-0.2) 0.2 x10^3/uL (0.0-0.2) Glucose (Fingerstick) 227 mg/dL (70-99) Sodium Level 141 mmol/L (136-145) Potassium Level 4.3 mmol/L (3.5-5.1) Chloride Level 109 mmol/L (98-107) Carbon Dioxide Level 26 mmol/L (21-32) Anion Gap 6 (6-14) Blood Urea Nitrogen 33 mg/dL (8-26) Creatinine 1.6 mg/dL (0.7-1.3) Estimated GFR (Cockcroft-Gault) 44.2 BUN/Creatinine Ratio 21 (6-20) Glucose Level 230 mg/dL (70-99) Calcium Level 8.1 mg/dL (8.5-10.1) Total Bilirubin 0.4 mg/dL (0.2-1.0) Aspartate Amino Transf (AST/SGOT) 26 U/L (15-37) Alanine Aminotransferase (ALT/SGPT) 27 U/L (16-63) Alkaline Phosphatase 41 U/L (46-116) Total Protein 5.9 g/dL (6.4-8.2) Albumin 2.4 g/dL (3.4-5.0) Albumin/Globulin Ratio 0.7 (1.0-1.7) Test 10/13/20 09:54 Glucose (Fingerstick) 222 mg/dL (70-99) Physical Exam HEENT: Neck Supple W Full Motion, Other (trach in place) Chest: Symmetric LUNGS: Other (diminished) Heart: RRR (SR) Abdomen: Soft N/T, Other (PEG in place) Extremities: No Edema Neurology: alert, non-verbal Assessment Assessment 1. Hematochezia, melena, GIB, no plans for endoscopy currently. Post tranfusion, GI following 2. Anemia, coagulopathy. OAC held 3. PAFIB; maintaining SR/ST. Amiodarone for rhythm maintenance. Was on Eliquis for stroke prophylaxis 4. CAD s/p PCI/stent placement. Recent echo with preserved LV systolic function 5. Acute on chronic respiratory failure secondary to COVID PNA with underlying COPD. s/p trach. on vent at HS 6. Hypertension; controlled 7. Hyperlipidemia; statin 8. LIBAN requiring HD. now off 9. Encephalopathy 10. Dysphagia; s/p PEG Recommendations 1. Continue Amiodarone for rhythm maintenance and metoprolol. Will check TSH 2. No antiplatelets and NOAC at this time with concurrent GIB. ?AVMs. Moving forward ASA for stroke prevention. 3. Secondary prevention as able 4. Supportive care Justicifation of Admission Dx: Justifications for Admission: Justification of Admission Dx: Yes MICHAEL FAYE MD 10/13/20 1738: CARDIO Progress Notes Assessment Assessment Patient seen and examined I agree with our nurse practitioners assessment and plan as above. Hematochezia, melena, GIB, Post tranfusion, GI following Anemia, coagulopathy. OAC held PAFIB; maintaining SR/ST. Amiodarone for rhythm maintenance. Was on Eliquis for stroke prophylaxis. Now on hold. CAD s/p PCI/stent placement. Recent echo with preserved LV systolic function Acute on chronic respiratory failure secondary to COVID PNA with underlying COPD. s/p trach. on vent at HS Hypertension; controlled Hyperlipidemia; statin LIBAN requiring HD. now off Encephalopathy ARMANI MAE APRN Oct 13, 2020 12:36 MICHAEL FAYE MD Oct 13, 2020 17:38
[2020-10-13] MEDS: POTASSIUM CL 20MEQ D5-0.45NACL 1,000 ML IV SCH (12:56)
--- NOTE | 2020-10-13 13:10 | CONS ---
DATE OF CONSULTATION: 10/13/2020 Alfonzo Mueller, nurse practitioner, dictating for Jimena Santamaria MD, Infectious Disease. REFERRING PHYSICIAN: Negrito Aragon MD REASON FOR CONSULTATION: Antibiotics. HISTORY OF PRESENT ILLNESS: This patient is a 60-year-old male who has a past medical history of chronic obstructive pulmonary disease, on baseline 2 liters; coronary artery disease with previous angioplasty and stent; diabetes mellitus type 2; and hypertension. He was initially admitted to the [facility] in [place] on 08/27/2020 for acute respiratory failure secondary to COVID-19 pneumonia. He required intubation with subsequent tracheostomy. He was treated with dexamethasone. A tracheal aspirate (09-14) grew Bordetella bronchiseptica (resistant to aztreonam, ceftazidime, ticarcillin/clavulanic acid). He was started on doxycycline. He later developed fever and was started on vancomycin and Zosyn. A culture from a PICC tip was positive for Staphylococcus epidermatitis with negative blood cultures. Cultures from a neck and gluteal decubitus wound grew normal skin stephen. A stool panel on 10/05 was positive for Campylobacter, which was treated. His hospital course was further complicated by acute kidney injury requiring hemodialysis, atrial fibrillation with rapid ventricular response and right upper extremity DVT. He was transferred over to [facility] for continue of care. While at [facility], he spiked a fever of 100.3. He was started empirically on linezolid and meropenem. A CT chest without contrast showed bilateral infiltrates, ____ left lower lobe atypical pneumonia, likely. Cherry cultures negative. He later developed hematochezia and was admitted to [facility] for further evaluation and management. CT abdomen and pelvis demonstrated fluid distended colon without focal wall thickening, pericolonic inflammatory change or significant diverticular disease. A focus of increased density at the wall of the proximal ascending colon may represent artifact or ingested material. No definitive source of gastrointestinal bleeding identified. His Eliquis has been discontinued. GI is following. A C. difficile PCR is pending. PAST MEDICAL HISTORY: Chronic obstructive pulmonary disease, on baseline 2 liters; coronary artery disease, status post angioplasty and stent; diabetes mellitus type 2; hypertension; hyperlipidemia. PAST SURGICAL HISTORY: Tracheostomy on 08/24/2020 and gastrostomy tube placement. SOCIAL HISTORY: Unable to obtain. FAMILY HISTORY: Unable to obtain. ALLERGIES: REVIEWED AND INCLUDES CLARITHROMYCIN (HAS TOLERATED AZITHROMYCIN), AMOXICILLIN, AMPICILLIN (HE HAS TOLERATED CEFTRIAXONE). MEDICATIONS: Reviewed on the OCT and includes linezolid, meropenem, amiodarone. REVIEW OF SYSTEMS: The patient is alert. He nods appropriately to questions. He denies fever or chills. He denies pain, nausea, vomiting or cramps. He denies headache, nasal/sinus congestion or sore throat. Denies shortness of air, cough or chest discomfort. PHYSICAL EXAMINATION: VITAL SIGNS: Temperature is 98.6, blood pressure 134/84, heart rate 91, respiratory rate 20, pulse oximetry is 100% via trach shield. GENERAL: The patient is propped up in bed, alert, calm, no distress. HEENT: Pupils equally round. Normal conjunctivae. Oral cavity pink, moist, some bacterial overgrowth on the tongue. NECK: Tracheostomy with an inferior tracheal wound. LUNGS: Diminished aeration in the bases. No accessory muscle use. HEART: Normal S1 and S2. ABDOMEN: Nondistended, soft, nontender with bowel sounds present. Gastrostomy tube. GENITOURINARY: Indwelling Najear in place. EXTREMITIES: No gross edema or cyanosis. Boots bilaterally. SKIN: Warm to touch with signs of generalized rash. He has a decubitus ulcer, gluteal (refer to wound care notes for further description/pictures). NEUROLOGIC: Alert, not verbal. He does nod to questions appropriately and follows commands. He has gross movement of all extremities except right upper extremity weakness. LINES: Left upper extremity midline and peripheral IV clean. LABORATORY DATA: Today's WBC 9.8 from 15.2, hemoglobin 6.9, platelets 180,000. Sodium 141, potassium 4.3, creatinine 1.6, BUN 33, glucose 230, total bilirubin 0.4, AST 26, ALT 27, albumin 2.4. Urinalysis from 10/12 unremarkable for infection. Stool occult blood positive. C. difficile and stool panel are pending. IMAGING: CT abdomen and pelvis per HPI. Chest x-ray shows interstitial thickening and alveolar opacities, may represent pulmonary edema or infection. Head CT showed no evidence of acute intracranial abnormality; partially opacified mastoid air cells nonspecific, they can be seen with mastoiditis. IMPRESSION: 1. Fever, improved. He was started empirically on meropenem and linezolid on 10/08. Cherry cultures negative. 2. Bordetella in sputum from 09/11 and 09/14. 3. Leukocytosis. 4. ANTIBIOTIC ALLERGIES TO AMOXICILLIN, AMPICILLIN, AND CLARITHROMYCIN, REACTIONS UNKNOWN. He has tolerated ceftriaxone and azithromycin. 5. Gluteal pressure wounds, stage 3 and inferior tracheostomy wound. 6. Acute gastrointestinal bleed. 7. Acute blood loss anemia. 8. COVID-19 recovery, treated with dexamethasone. 9. History of Campylobacter, treated. 10. Atrial fibrillation, on amiodarone. 11. History of acute kidney injury, now off hemodialysis. 12. Diabetes mellitus type 2. 13. Hypertension. 14. Coronary artery disease. PLAN: 1. Continue the linezolid and meropenem. 2. Restart the doxycycline. 3. Monitor temperature and WBC trend. 4. Local wound care and offloading as directed per wound team. 5. Maintain aspiration precautions. 6. Maintain midline. 7. Packed RBCs underway. 8. Supportive care. Thank you, Dr. Aragon, for asking us to participate in this patient's care. Should you have further questions or concerns, please call. The patient was seen and examined and plan of care implemented by Dr. Jimena Santamaria. Patient seen and examined on October 14, 2020. Discussed with RN. Discussed with ARMED GUARD Co-formulated above assessment and plan JIMENA SANTAMARIA MD DR: KAY/moy JOB#: [id number] / [id number] JULIA
--- NOTE | 2020-10-13 14:32 | NUR ---
SS following for discharge planning. SS reviewed pt chart and discussed with pt RN. Pt is from [facility], ; fax [phone]. Pt is currently on trach collar and tube feeds. Pt on IV Doxycycline, IV Zyvox, and IV Meropenem. Wound care following. [facility] reported that they received pt 2-3 days ago. They reported that they needed to discharge pt when transferred to [facility] due to pt's insurance. [facility] reported that new patient referral would need to be sent and request for authorization would need to be submitted when pt is stable to return to facility. SS phoned and faxed new referral to [facility]. SS will continue to follow for discharge planning.
--- NOTE | 2020-10-13 18:25 | NUR ---
Per orders at [facility] patient is on Glucerna 1.2 60cc/HR with 200cc water flushes every 4 hours. Tube feedings still on hold per GI.
[2020-10-14] VITALS (25 sets, daily range): BP systolic 97–148; BP diastolic 60–88
[2020-10-14] MEDS: MEROPENEM 500 MG in IV NORMAL SALINE 50ML 50 ML IV SCH ×5 (00:16→23:50)
[2020-10-14] MEDS: INSULIN LISPRO 300 UNITS/3 ML VIAL. SQ SCH ×4 (00:26→17:30)
[2020-10-14] MEDS: POTASSIUM CL 20MEQ D5-0.45NACL 1,000 ML IV SCH ×2 (00:27→17:29)
[2020-10-14 05:17] LABS: BASO # 0.1 x10^3/uL (0.0-0.2); BASO % 1 % (0-3); EOS # 0.2 x10^3/uL (0.0-0.7); EOS % 2 % (0-3); HEMATOCRIT 25.7 % (39.0-53.0); HEMOGLOBIN 8.4 g/dL (13.0-17.5); LYMPH # 1.6 x10^3/uL (1.0-4.8); LYMPH % 20 % (24-48); MEAN CORPUSCULAR HEMOGLOBIN 30 pg (25-35); MEAN CORPUSCULAR HGB CONC 33 g/dL (31-37); MEAN CORPUSCULAR VOLUME 90 fL (79-100); MONO # 0.6 x10^3/uL (0.0-1.1); MONO % 7 % (0-9); NEUT # 5.9 x10^3/uL (1.8-7.7); NEUT % 71 % (31-73); PLATELET COUNT 235 x10^3/uL (140-400); RED BLOOD COUNT 2.84 x10^6/uL (4.30-5.70); RED CELL DISTRIBUTION WIDTH 15.4 % (11.5-14.5); WHITE BLOOD COUNT 8.4 x10^3/uL (4.0-11.0)
[2020-10-14 05:43] LABS: CREATININE 1.4 mg/dL (0.7-1.3); GFR 51.5; POTASSIUM 4.3 mmol/L (3.5-5.1)
[2020-10-14] MEDS: IPRATRPIUM/ALBUTEROL 0.5/2.5MG 3 ML NEBU. NEB SCH ×4 (07:17→20:24)
--- NOTE | 2020-10-14 08:39 | PDOC ---
PULMONARY PROGRESS NOTES DATE: 10/14/20 TIME: 08:35 Subjective Patient is resting comfortably on 35% trach shield Utilizes ventilatory support overnight No other concerns Vitals Vital Signs Date Time Temp Pulse Resp B/P (MAP) Pulse Ox O2 Delivery O2 Flow Rate FiO2 10/14/20 08:00 71 20 128/76 (93) 100 Tracheal Collar 10/14/20 08:00 10.0 10/14/20 04:00 97.9 97.9 ROS: No Nausea, No Chest Pain, No Abdominal Pain, No Increase Cough General: Alert HEENT: Other (trach ) Lungs: Clear Cardiovascular: S1, S2 Abdomen: Soft, Non-tender Neuro Exam: Alert Extremities: No Edema, Other Skin: Warm, Dry, Other (Bilateral wounds ) Labs Laboratory Tests Test 10/12/20 10:35 10/12/20 15:10 10/12/20 15:45 10/12/20 18:00 Stool Occult Blood Positive (NEG) Stool Campylobacter PCR Negative (NEGATIVE) Stool E. coli Shiga Toxins (PCR) Negative (NEGATIVE) Stool Salmonella PCR Negative (NEGATIVE) Stool Shigella PCR Negative (NEGATIVE) Clostridium difficile Toxin (PCR) Negative (NEGATIVE) White Blood Count 14.0 x10^3/uL (4.0-11.0) Red Blood Count 3.02 x10^6/uL (4.30-5.70) Hemoglobin 8.7 g/dL (13.0-17.5) Hematocrit 27.9 % (39.0-53.0) Mean Corpuscular Volume 92 fL (79-100) Mean Corpuscular Hemoglobin 29 pg (25-35) Mean Corpuscular Hemoglobin Concent 31 g/dL (31-37) Red Cell Distribution Width 16.4 % (11.5-14.5) Platelet Count 285 x10^3/uL (140-400) Neutrophils (%) (Auto) 82 % (31-73) Lymphocytes (%) (Auto) 11 % (24-48) Monocytes (%) (Auto) 6 % (0-9) Eosinophils (%) (Auto) 0 % (0-3) Basophils (%) (Auto) 1 % (0-3) Neutrophils # (Auto) 11.4 x10^3/uL (1.8-7.7) Lymphocytes # (Auto) 1.5 x10^3/uL (1.0-4.8) Monocytes # (Auto) 0.8 x10^3/uL (0.0-1.1) Eosinophils # (Auto) 0.0 x10^3/uL (0.0-0.7) Basophils # (Auto) 0.1 x10^3/uL (0.0-0.2) Glucose (Fingerstick) 227 mg/dL (70-99) Test 10/13/20 03:15 10/13/20 09:52 10/13/20 09:54 10/13/20 18:23 White Blood Count 11.0 x10^3/uL (4.0-11.0) 9.8 x10^3/uL (4.0-11.0) Red Blood Count 2.70 x10^6/uL (4.30-5.70) 2.36 x10^6/uL (4.30-5.70) Hemoglobin 7.7 g/dL (13.0-17.5) 6.9 g/dL (13.0-17.5) Hematocrit 24.8 % (39.0-53.0) 21.7 % (39.0-53.0) Mean Corpuscular Volume 92 fL (79-100) 92 fL (79-100) Mean Corpuscular Hemoglobin 29 pg (25-35) 29 pg (25-35) Mean Corpuscular Hemoglobin Concent 31 g/dL (31-37) 32 g/dL (31-37) Red Cell Distribution Width 16.6 % (11.5-14.5) 16.4 % (11.5-14.5) Platelet Count 300 x10^3/uL (140-400) 180 x10^3/uL (140-400) Neutrophils (%) (Auto) 80 % (31-73) Lymphocytes (%) (Auto) 12 % (24-48) Monocytes (%) (Auto) 7 % (0-9) Eosinophils (%) (Auto) 0 % (0-3) Basophils (%) (Auto) 1 % (0-3) Neutrophils # (Auto) 8.8 x10^3/uL (1.8-7.7) Lymphocytes # (Auto) 1.3 x10^3/uL (1.0-4.8) Monocytes # (Auto) 0.7 x10^3/uL (0.0-1.1) Eosinophils # (Auto) 0.0 x10^3/uL (0.0-0.7) Basophils # (Auto) 0.2 x10^3/uL (0.0-0.2) Sodium Level 141 mmol/L (136-145) Potassium Level 4.3 mmol/L (3.5-5.1) Chloride Level 109 mmol/L (98-107) Carbon Dioxide Level 26 mmol/L (21-32) Anion Gap 6 (6-14) Blood Urea Nitrogen 33 mg/dL (8-26) Creatinine 1.6 mg/dL (0.7-1.3) Estimated GFR (Cockcroft-Gault) 44.2 BUN/Creatinine Ratio 21 (6-20) Glucose Level 230 mg/dL (70-99) Calcium Level 8.1 mg/dL (8.5-10.1) Total Bilirubin 0.4 mg/dL (0.2-1.0) Aspartate Amino Transf (AST/SGOT) 26 U/L (15-37) Alanine Aminotransferase (ALT/SGPT) 27 U/L (16-63) Alkaline Phosphatase 41 U/L (46-116) Total Protein 5.9 g/dL (6.4-8.2) Albumin 2.4 g/dL (3.4-5.0) Albumin/Globulin Ratio 0.7 (1.0-1.7) Thyroid Stimulating Hormone (TSH) 2.139 uIU/mL (0.358-3.74) Glucose (Fingerstick) 222 mg/dL (70-99) 171 mg/dL (70-99) Test 10/14/20 00:20 10/14/20 02:00 10/14/20 05:00 10/14/20 05:08 Glucose (Fingerstick) 204 mg/dL (70-99) 135 mg/dL (70-99) Hemoglobin 8.8 g/dL (13.0-17.5) 8.4 g/dL (13.0-17.5) White Blood Count 8.4 x10^3/uL (4.0-11.0) Red Blood Count 2.84 x10^6/uL (4.30-5.70) Hematocrit 25.7 % (39.0-53.0) Mean Corpuscular Volume 90 fL (79-100) Mean Corpuscular Hemoglobin 30 pg (25-35) Mean Corpuscular Hemoglobin Concent 33 g/dL (31-37) Red Cell Distribution Width 15.4 % (11.5-14.5) Platelet Count 235 x10^3/uL (140-400) Neutrophils (%) (Auto) 71 % (31-73) Lymphocytes (%) (Auto) 20 % (24-48) Monocytes (%) (Auto) 7 % (0-9) Eosinophils (%) (Auto) 2 % (0-3) Basophils (%) (Auto) 1 % (0-3) Neutrophils # (Auto) 5.9 x10^3/uL (1.8-7.7) Lymphocytes # (Auto) 1.6 x10^3/uL (1.0-4.8) Monocytes # (Auto) 0.6 x10^3/uL (0.0-1.1) Eosinophils # (Auto) 0.2 x10^3/uL (0.0-0.7) Basophils # (Auto) 0.1 x10^3/uL (0.0-0.2) Sodium Level 142 mmol/L (136-145) Potassium Level 4.3 mmol/L (3.5-5.1) Chloride Level 110 mmol/L (98-107) Carbon Dioxide Level 26 mmol/L (21-32) Anion Gap 6 (6-14) Blood Urea Nitrogen 25 mg/dL (8-26) Creatinine 1.4 mg/dL (0.7-1.3) Estimated GFR (Cockcroft-Gault) 51.5 Glucose Level 145 mg/dL (70-99) Calcium Level 8.0 mg/dL (8.5-10.1) Laboratory Tests Test 10/13/20 09:52 10/13/20 09:54 10/13/20 18:23 10/14/20 00:20 White Blood Count 9.8 x10^3/uL (4.0-11.0) Red Blood Count 2.36 x10^6/uL (4.30-5.70) Hemoglobin 6.9 g/dL (13.0-17.5) Hematocrit 21.7 % (39.0-53.0) Mean Corpuscular Volume 92 fL (79-100) Mean Corpuscular Hemoglobin 29 pg (25-35) Mean Corpuscular Hemoglobin Concent 32 g/dL (31-37) Red Cell Distribution Width 16.4 % (11.5-14.5) Platelet Count 180 x10^3/uL (140-400) Glucose (Fingerstick) 222 mg/dL (70-99) 171 mg/dL (70-99) 204 mg/dL (70-99) Test 10/14/20 02:00 10/14/20 05:00 10/14/20 05:08 Hemoglobin 8.8 g/dL (13.0-17.5) 8.4 g/dL (13.0-17.5) White Blood Count 8.4 x10^3/uL (4.0-11.0) Red Blood Count 2.84 x10^6/uL (4.30-5.70) Hematocrit 25.7 % (39.0-53.0) Mean Corpuscular Volume 90 fL (79-100) Mean Corpuscular Hemoglobin 30 pg (25-35) Mean Corpuscular Hemoglobin Concent 33 g/dL (31-37) Red Cell Distribution Width 15.4 % (11.5-14.5) Platelet Count 235 x10^3/uL (140-400) Neutrophils (%) (Auto) 71 % (31-73) Lymphocytes (%) (Auto) 20 % (24-48) Monocytes (%) (Auto) 7 % (0-9) Eosinophils (%) (Auto) 2 % (0-3) Basophils (%) (Auto) 1 % (0-3) Neutrophils # (Auto) 5.9 x10^3/uL (1.8-7.7) Lymphocytes # (Auto) 1.6 x10^3/uL (1.0-4.8) Monocytes # (Auto) 0.6 x10^3/uL (0.0-1.1) Eosinophils # (Auto) 0.2 x10^3/uL (0.0-0.7) Basophils # (Auto) 0.1 x10^3/uL (0.0-0.2) Sodium Level 142 mmol/L (136-145) Potassium Level 4.3 mmol/L (3.5-5.1) Chloride Level 110 mmol/L (98-107) Carbon Dioxide Level 26 mmol/L (21-32) Anion Gap 6 (6-14) Blood Urea Nitrogen 25 mg/dL (8-26) Creatinine 1.4 mg/dL (0.7-1.3) Estimated GFR (Cockcroft-Gault) 51.5 Glucose Level 145 mg/dL (70-99) Calcium Level 8.0 mg/dL (8.5-10.1) Glucose (Fingerstick) 135 mg/dL (70-99) Medications Active Scripts Medications Dose Route/Sig Max Daily Dose Days Date Category Colace (Docusate Sodium) 100 Mg Capsule 1 Cap PO BID 15 10/12/20 Reported Tylenol (Acetaminophen) 325 Mg Tablet 650 Mg PO PRN Q6HRS PRN 10/12/20 Reported Trazodone Hcl 50 Mg Tablet 1 Tab PO QHS 10/12/20 Reported Protonix (Pantoprazole Sodium) 20 Mg Tablet.dr 1 Tab PO DAILY 10/12/20 Reported Metoprolol Tartrate 25 Mg Tablet 1 Tab PO BID 10/12/20 Reported Merrem (Meropenem) 500 Mg Vial 500 Mg IV Q6HRS 10/12/20 Reported Zyvox (Linezolid) 600 Mg Tablet 600 Mg PO BID 10/12/20 Reported Duoneb 0.5-3(2.5) Mg/3 Ml (Albuterol/Ipratropium) 3 Ml Ampul.neb 3 Ml NEB QID 10/12/20 Reported Lantus Solostar (Insulin Glargine,Hum.rec.anlog) 100 Unit/1 Ml Insuln.pen 22 Unit SQ QHS 10/12/20 Reported Atorvastatin Calcium 20 Mg Tablet 1 Tab PO DAILY 10/12/20 Reported Amlodipine Besylate 5 Mg Tablet 5 Mg PO DAILY 10/12/20 Reported Amiodarone Hcl 200 Mg Tablet 1 Tab PO DAILY 10/12/20 Reported Impression . IMPRESSION: 1. [id number] respiratory failure, multifactorial 2. Recent COVID-19 viral pneumonia, status post trach and PEG on 09/24/2020. 3. Hematochezia/melena per GI. 4. Acute blood loss anemia-- stable 5. Atrial fibrillation, on chronic Eliquis-- eliquis on hold 6. Upper extremity deep venous thrombosis. 7. Chronic obstructive pulmonary disease. 8. Type 2 diabetes. 9. Paroxysmal atrial fibrillation. 10. Severe protein malnutrition. Plan . PLAN: Continue trach shield during the day and mechanical ventilation overnight, currently T-shield 35% Trach care daily, as needed suctioning Follow GI recommendations, no plans for EGD or colonoscopy at this time, checking for C. difficile, stool culture and continuing PPI, TF remains on HOLD Follow infectious disease recommendations in regards to antibiotic therapy Monitor hemoglobin, transfuse if hemoglobin less than 7 Continue to hold Eliquis Follow wound care recommendations, every 2 turn for offloading Diabetes per PCP Consult to dietitian for PCM GI PPX Discussed with RN and RT Critical Care Time [id number] CHINO JUÁREZ MD Oct 14, 2020 08:39
[2020-10-14] MEDS: ATORVASTATIN CALCIUM 20 MG TABLET PO SCH (08:48)
[2020-10-14] MEDS: AMIODARONE HCL 200 MG TABLET. PO SCH (08:48)
[2020-10-14] MEDS: METOPROLOL TART IMMED RELEASE 25 MG TABLET. PO SCH ×2 (08:48→20:40)
[2020-10-14] MEDS: PANTOPRAZOLE IV PUSH 40 MG VIAL. IVP SCH (08:48)
[2020-10-14] MEDS: DOXYCYCLINE HYCLATE 100 MG in IV DEXTROSE 5% 100ML 100 ML IV SCH ×2 (08:49→20:37)
--- NOTE | 2020-10-14 09:14 | PDOC ---
Infectious Disease Note Subjective Subjective Resting quietly No fevers last 24 hours No increase O2 needs. ROS ROS Unobtainable due to patient's condition Vital Sign Vital Signs Vital Signs Date Time Temp Pulse Resp B/P (MAP) Pulse Ox O2 Delivery O2 Flow Rate FiO2 10/14/20 08:48 71 128/76 10/14/20 08:00 20 100 Tracheal Collar 10/14/20 08:00 10.0 10/14/20 04:00 97.9 97.9 Physical Exam PHYSICAL EXAM GENERAL: Patient is propped up in bed, resting quietly, briefly opens eyes to voice HEENT: Pupils equally round. Normal conjunctivae. Oral cavity pink, moist, some bacterial overgrowth on the tongue. NECK: Tracheostomy with an inferior tracheal wound -dressed. LUNGS: Diminished aeration in the bases. No accessory muscle use. HEART: Normal S1 and S2. ABDOMEN: Nondistended, soft, nontender with bowel sounds present. Gastrostomy tube, clean/sutured. GENITOURINARY: Indwelling Najera in place. EXTREMITIES: No gross edema or cyanosis. Heeboots bilaterally. SKIN: Warm to touch with signs of generalized rash. Stage III gluteal pressure wound (refer to wound care notes for further description/pictures). NEUROLOGIC: Alert, not verbal. Left upper extremity midline clean Labs Lab Laboratory Tests Test 10/13/20 09:52 10/13/20 09:54 10/13/20 18:23 10/14/20 00:20 White Blood Count 9.8 x10^3/uL (4.0-11.0) Red Blood Count 2.36 x10^6/uL (4.30-5.70) Hemoglobin 6.9 g/dL (13.0-17.5) Hematocrit 21.7 % (39.0-53.0) Mean Corpuscular Volume 92 fL (79-100) Mean Corpuscular Hemoglobin 29 pg (25-35) Mean Corpuscular Hemoglobin Concent 32 g/dL (31-37) Red Cell Distribution Width 16.4 % (11.5-14.5) Platelet Count 180 x10^3/uL (140-400) Glucose (Fingerstick) 222 mg/dL (70-99) 171 mg/dL (70-99) 204 mg/dL (70-99) Test 10/14/20 02:00 10/14/20 05:00 10/14/20 05:08 Hemoglobin 8.8 g/dL (13.0-17.5) 8.4 g/dL (13.0-17.5) White Blood Count 8.4 x10^3/uL (4.0-11.0) Red Blood Count 2.84 x10^6/uL (4.30-5.70) Hematocrit 25.7 % (39.0-53.0) Mean Corpuscular Volume 90 fL (79-100) Mean Corpuscular Hemoglobin 30 pg (25-35) Mean Corpuscular Hemoglobin Concent 33 g/dL (31-37) Red Cell Distribution Width 15.4 % (11.5-14.5) Platelet Count 235 x10^3/uL (140-400) Neutrophils (%) (Auto) 71 % (31-73) Lymphocytes (%) (Auto) 20 % (24-48) Monocytes (%) (Auto) 7 % (0-9) Eosinophils (%) (Auto) 2 % (0-3) Basophils (%) (Auto) 1 % (0-3) Neutrophils # (Auto) 5.9 x10^3/uL (1.8-7.7) Lymphocytes # (Auto) 1.6 x10^3/uL (1.0-4.8) Monocytes # (Auto) 0.6 x10^3/uL (0.0-1.1) Eosinophils # (Auto) 0.2 x10^3/uL (0.0-0.7) Basophils # (Auto) 0.1 x10^3/uL (0.0-0.2) Sodium Level 142 mmol/L (136-145) Potassium Level 4.3 mmol/L (3.5-5.1) Chloride Level 110 mmol/L (98-107) Carbon Dioxide Level 26 mmol/L (21-32) Anion Gap 6 (6-14) Blood Urea Nitrogen 25 mg/dL (8-26) Creatinine 1.4 mg/dL (0.7-1.3) Estimated GFR (Cockcroft-Gault) 51.5 Glucose Level 145 mg/dL (70-99) Calcium Level 8.0 mg/dL (8.5-10.1) Glucose (Fingerstick) 135 mg/dL (70-99) Micro BC 10/13 pending Objective Assessment Fever, improved. He was started empirically on meropenem and linezolid on 10/08. Cherry cultures negative. Bordetella in sputum from 09/11 and 09/14. Leukocytosis. ANTIBIOTIC ALLERGIES TO AMOXICILLIN, AMPICILLIN, AND CLARITHROMYCIN, REACTIONS UNKNOWN. He has tolerated ceftriaxone and azithromycin. Gluteal pressure wounds, stage 3 and inferior tracheostomy wound. Acute gastrointestinal bleed. Stool study/C. diff neg. Acute blood loss anemia s/p PRBCs COVID-19 recovery, treated with dexamethasone. History of Campylobacter, treated. Atrial fibrillation, on amiodarone. History of acute kidney injury, now off hemodialysis. Diabetes mellitus type 2. Hypertension. Coronary artery disease. Plan Plan of Care Continue the linezolid, meropenem and doxycycline. Monitor temperature and WBC trend. Local wound care and offloading as directed per wound team. Maintain aspiration precautions. Maintain midline. Supportive care. Discussed with nursing Attending Co-Sign The patient was seen and examined at the bedside. S/P ONE unit prbc yesterday will dc linezolid cont merrem and doxycycline RICHARD MAY APRN Oct 14, 2020 09:14 LESLI MONTES MD Oct 14, 2020 10:44
--- NOTE | 2020-10-14 11:03 | PDOC ---
Date of Service: DATE: 10/14/20 TIME: 10:59 Subjective: Subjective: Denies pain. Not sure about bleeding. Objective: Objective: D/w nurse - two brown/green smears yesterday, liquid dark stool today (getting ready to clean up), doesn't think bloody. Vital Signs: Vital Signs Date Time Temp Pulse Resp B/P (MAP) Pulse Ox O2 Delivery O2 Flow Rate FiO2 10/14/20 10:00 65 20 108/62 (77) 100 Tracheal Collar 10/14/20 09:00 98.3 98.3 10/14/20 08:00 10.0 Labs: Laboratory Tests Test 10/13/20 18:23 10/14/20 00:20 10/14/20 05:08 Glucose (Fingerstick) 171 mg/dL (70-99) 204 mg/dL (70-99) 135 mg/dL (70-99) PE: GEN: NAD LUNGS: trach collar HEART: RRR ABD: soft, non-tender, PEG in place RUQ, sitting in dark brown liquid stool NEURO/PSYCH: awake and alert, sometimes responds A/P: Hematochezia/melena - today has liquid dark brown stool w/o blood; C Diff and enteric panel negative Anemia - improved w/ transfusion Recent COVID-19 infection s/p tracheostomy and PEG 09/24/20 A Fib - Eliquis held LIBAN - better -- Try PEG feeds. Justicifation of Admission Dx: Justifications for Admission: Justification of Admission Dx: Yes YOSVANY MCINTOSH Oct 14, 2020 11:03
--- NOTE | 2020-10-14 12:04 | PDOC ---
PROGRESS NOTES Date of Service DATE: 10/14/20 TIME: 12:01 Subjective Subjective received 1 unit prbc yesterday for hgb 6.9. hgb 8.4 today. no melena today. bp low. lab reviewed Objective Objective Vital Signs Date Time Temp Pulse Resp B/P (MAP) Pulse Ox O2 Delivery O2 Flow Rate FiO2 10/14/20 11:28 100 Tracheal Collar 8.0 10/14/20 11:00 67 20 97/60 (72) 10/14/20 09:00 98.3 98.3 Intake and Output 10/14/20 07:00 Intake Total 4033 ml Output Total 1655 ml Balance 2378 ml Intake Oral 0 ml IV Total 2887 ml Blood Product 459 ml Blood Product IV Normal Saline Flush 687 ml Output Urine Total 1655 ml # Bowel Movements 1 Physical Exam Abdomen: Soft, Other (peg) Heart: Regular rate, Normal S1, Normal S2 Extremities: No edema General: Alert HEENT: Atraumatic, Other (trach shield) Lungs: Clear to auscultation Neuro: Other (alert) Psych/Mental Status: Mood NL Skin: No rashes Assessment Assessment Problems1. Acute gastrointestinal bleed. melena noted at [facility]. hematochezia at [facility]. 2. Acute blood loss anemia on top of anemia of chronic disease. 3. Acute on chronic hypoxic respiratory failure. 4. Chronic obstructive pulmonary disease. 5. Recent COVID-19 pneumonia, out of isolation. 6. Diabetes mellitus type 2, on insulin.with hyperglycemia 7. Hypertension. 8. Paroxysmal atrial fibrillation.currently in nsr. off eliquis due ti GI bleed 9. Hyperlipidemia. 10. Deep vein thrombosis, right upper extremity. 11. Morbid obesity. 12. Tracheostomy. 13. Severe protein-calorie malnutrition. 14. Oropharyngeal dysphagia, previously maintained on gastrostomy tube feedings. 15. Acute kidney injury improved. may be at baseline creatinine 1.4. Medical Problems: (1) Altered mental status Status: Acute (2) Hematochezia Status: Acute (3) Tracheostomy care Status: Acute Plan Plan of Care start tube feeding decrease and eventually stop iv fluids discussed with nurse tracheostomy care continue doxycycline and meropenem lab tomorrow Comment Review of Relevant I have reviewed the following items willam (where applicable) has been applied. Labs Laboratory Tests Test 10/12/20 15:10 10/12/20 15:45 10/12/20 18:00 10/13/20 03:15 Stool Campylobacter PCR Negative (NEGATIVE) Stool E. coli Shiga Toxins (PCR) Negative (NEGATIVE) Stool Salmonella PCR Negative (NEGATIVE) Stool Shigella PCR Negative (NEGATIVE) Clostridium difficile Toxin (PCR) Negative (NEGATIVE) White Blood Count 14.0 x10^3/uL (4.0-11.0) 11.0 x10^3/uL (4.0-11.0) Red Blood Count 3.02 x10^6/uL (4.30-5.70) 2.70 x10^6/uL (4.30-5.70) Hemoglobin 8.7 g/dL (13.0-17.5) 7.7 g/dL (13.0-17.5) Hematocrit 27.9 % (39.0-53.0) 24.8 % (39.0-53.0) Mean Corpuscular Volume 92 fL (79-100) 92 fL (79-100) Mean Corpuscular Hemoglobin 29 pg (25-35) 29 pg (25-35) Mean Corpuscular Hemoglobin Concent 31 g/dL (31-37) 31 g/dL (31-37) Red Cell Distribution Width 16.4 % (11.5-14.5) 16.6 % (11.5-14.5) Platelet Count 285 x10^3/uL (140-400) 300 x10^3/uL (140-400) Neutrophils (%) (Auto) 82 % (31-73) 80 % (31-73) Lymphocytes (%) (Auto) 11 % (24-48) 12 % (24-48) Monocytes (%) (Auto) 6 % (0-9) 7 % (0-9) Eosinophils (%) (Auto) 0 % (0-3) 0 % (0-3) Basophils (%) (Auto) 1 % (0-3) 1 % (0-3) Neutrophils # (Auto) 11.4 x10^3/uL (1.8-7.7) 8.8 x10^3/uL (1.8-7.7) Lymphocytes # (Auto) 1.5 x10^3/uL (1.0-4.8) 1.3 x10^3/uL (1.0-4.8) Monocytes # (Auto) 0.8 x10^3/uL (0.0-1.1) 0.7 x10^3/uL (0.0-1.1) Eosinophils # (Auto) 0.0 x10^3/uL (0.0-0.7) 0.0 x10^3/uL (0.0-0.7) Basophils # (Auto) 0.1 x10^3/uL (0.0-0.2) 0.2 x10^3/uL (0.0-0.2) Glucose (Fingerstick) 227 mg/dL (70-99) Sodium Level 141 mmol/L (136-145) Potassium Level 4.3 mmol/L (3.5-5.1) Chloride Level 109 mmol/L (98-107) Carbon Dioxide Level 26 mmol/L (21-32) Anion Gap 6 (6-14) Blood Urea Nitrogen 33 mg/dL (8-26) Creatinine 1.6 mg/dL (0.7-1.3) Estimated GFR (Cockcroft-Gault) 44.2 BUN/Creatinine Ratio 21 (6-20) Glucose Level 230 mg/dL (70-99) Calcium Level 8.1 mg/dL (8.5-10.1) Total Bilirubin 0.4 mg/dL (0.2-1.0) Aspartate Amino Transf (AST/SGOT) 26 U/L (15-37) Alanine Aminotransferase (ALT/SGPT) 27 U/L (16-63) Alkaline Phosphatase 41 U/L (46-116) Total Protein 5.9 g/dL (6.4-8.2) Albumin 2.4 g/dL (3.4-5.0) Albumin/Globulin Ratio 0.7 (1.0-1.7) Thyroid Stimulating Hormone (TSH) 2.139 uIU/mL (0.358-3.74) Test 10/13/20 09:52 10/13/20 09:54 10/13/20 18:23 10/14/20 00:20 White Blood Count 9.8 x10^3/uL (4.0-11.0) Red Blood Count 2.36 x10^6/uL (4.30-5.70) Hemoglobin 6.9 g/dL (13.0-17.5) Hematocrit 21.7 % (39.0-53.0) Mean Corpuscular Volume 92 fL (79-100) Mean Corpuscular Hemoglobin 29 pg (25-35) Mean Corpuscular Hemoglobin Concent 32 g/dL (31-37) Red Cell Distribution Width 16.4 % (11.5-14.5) Platelet Count 180 x10^3/uL (140-400) Glucose (Fingerstick) 222 mg/dL (70-99) 171 mg/dL (70-99) 204 mg/dL (70-99) Test 10/14/20 02:00 10/14/20 05:00 10/14/20 05:08 10/14/20 11:42 Hemoglobin 8.8 g/dL (13.0-17.5) 8.4 g/dL (13.0-17.5) White Blood Count 8.4 x10^3/uL (4.0-11.0) Red Blood Count 2.84 x10^6/uL (4.30-5.70) Hematocrit 25.7 % (39.0-53.0) Mean Corpuscular Volume 90 fL (79-100) Mean Corpuscular Hemoglobin 30 pg (25-35) Mean Corpuscular Hemoglobin Concent 33 g/dL (31-37) Red Cell Distribution Width 15.4 % (11.5-14.5) Platelet Count 235 x10^3/uL (140-400) Neutrophils (%) (Auto) 71 % (31-73) Lymphocytes (%) (Auto) 20 % (24-48) Monocytes (%) (Auto) 7 % (0-9) Eosinophils (%) (Auto) 2 % (0-3) Basophils (%) (Auto) 1 % (0-3) Neutrophils # (Auto) 5.9 x10^3/uL (1.8-7.7) Lymphocytes # (Auto) 1.6 x10^3/uL (1.0-4.8) Monocytes # (Auto) 0.6 x10^3/uL (0.0-1.1) Eosinophils # (Auto) 0.2 x10^3/uL (0.0-0.7) Basophils # (Auto) 0.1 x10^3/uL (0.0-0.2) Sodium Level 142 mmol/L (136-145) Potassium Level 4.3 mmol/L (3.5-5.1) Chloride Level 110 mmol/L (98-107) Carbon Dioxide Level 26 mmol/L (21-32) Anion Gap 6 (6-14) Blood Urea Nitrogen 25 mg/dL (8-26) Creatinine 1.4 mg/dL (0.7-1.3) Estimated GFR (Cockcroft-Gault) 51.5 Glucose Level 145 mg/dL (70-99) Calcium Level 8.0 mg/dL (8.5-10.1) Glucose (Fingerstick) 135 mg/dL (70-99) 169 mg/dL (70-99) Laboratory Tests Test 10/13/20 18:23 10/14/20 00:20 10/14/20 02:00 10/14/20 05:00 Glucose (Fingerstick) 171 mg/dL (70-99) 204 mg/dL (70-99) Hemoglobin 8.8 g/dL (13.0-17.5) 8.4 g/dL (13.0-17.5) White Blood Count 8.4 x10^3/uL (4.0-11.0) Red Blood Count 2.84 x10^6/uL (4.30-5.70) Hematocrit 25.7 % (39.0-53.0) Mean Corpuscular Volume 90 fL (79-100) Mean Corpuscular Hemoglobin 30 pg (25-35) Mean Corpuscular Hemoglobin Concent 33 g/dL (31-37) Red Cell Distribution Width 15.4 % (11.5-14.5) Platelet Count 235 x10^3/uL (140-400) Neutrophils (%) (Auto) 71 % (31-73) Lymphocytes (%) (Auto) 20 % (24-48) Monocytes (%) (Auto) 7 % (0-9) Eosinophils (%) (Auto) 2 % (0-3) Basophils (%) (Auto) 1 % (0-3) Neutrophils # (Auto) 5.9 x10^3/uL (1.8-7.7) Lymphocytes # (Auto) 1.6 x10^3/uL (1.0-4.8) Monocytes # (Auto) 0.6 x10^3/uL (0.0-1.1) Eosinophils # (Auto) 0.2 x10^3/uL (0.0-0.7) Basophils # (Auto) 0.1 x10^3/uL (0.0-0.2) Sodium Level 142 mmol/L (136-145) Potassium Level 4.3 mmol/L (3.5-5.1) Chloride Level 110 mmol/L (98-107) Carbon Dioxide Level 26 mmol/L (21-32) Anion Gap 6 (6-14) Blood Urea Nitrogen 25 mg/dL (8-26) Creatinine 1.4 mg/dL (0.7-1.3) Estimated GFR (Cockcroft-Gault) 51.5 Glucose Level 145 mg/dL (70-99) Calcium Level 8.0 mg/dL (8.5-10.1) Test 10/14/20 05:08 10/14/20 11:42 Glucose (Fingerstick) 135 mg/dL (70-99) 169 mg/dL (70-99) Medications Current Medications Iohexol (Omnipaque 300 Mg/ml) 75 ml 1X ONCE IV Last administered on 10/12/20at 08:15; Start 10/12/20 at 08:15; Stop 10/12/20 at 08:16; Status DC Info (CONTRAST GIVEN -- Rx MONITORING) 1 each PRN DAILY PRN MC SEE COMMENTS; Start 10/12/20 at 08:30; Stop 10/14/20 at 08:29; Status DC Ondansetron HCl (Zofran) 4 mg PRN Q8HRS PRN IV NAUSEA/VOMITING; Start 10/12/20 at 10:15; Stop 10/12/20 at 11:34; Status DC Morphine Sulfate (Morphine Sulfate) 4 mg PRN Q2HR PRN IV PAIN; Start 10/12/20 at 10:15; Stop 10/13/20 at 10:14; Status DC Potassium Chloride/Dextrose/ Sod Cl 1,000 ml @ 75 mls/hr [id number] IV Last administered on 10/12/20at 11:46; Start 10/12/20 at 10:30; Stop 10/12/20 at 23:49; Status DC Pantoprazole Sodium (PROTONIX VIAL for IV PUSH) 40 mg DAILY IVP Last administered on 10/14/20at 08:48; Start 10/13/20 at 09:00 Meropenem 500 mg/ Sodium Chloride 50 ml @ 100 mls/hr Q6HRS IV Last administered on 10/14/20at 11:43; Start 10/12/20 at 18:00 Linezolid/Dextrose 300 ml @ 300 mls/hr Q12HR IV Last administered on 10/14/20at 08:49; Start 10/12/20 at 21:00; Stop 10/14/20 at 10:45; Status DC Albuterol/ Ipratropium (Duoneb) 3 ml RTQID NEB Last administered on 10/14/20at 11:35; Start 10/12/20 at 12:00 Insulin Human Lispro (HumaLOG) BG 300-39,9=4 units... Q6HRS SQ Last administered on 10/14/20at 00:26; Start 10/12/20 at 12:00 Metoprolol Tartrate (Lopressor Vial) 5 mg PRN Q6HRS PRN IVP TACHYCARDIA AFIB RVR RATE>120; Start 10/12/20 at 10:30 Ondansetron HCl (Zofran) 4 mg Q6HRS PRN IVP NAUSEA/VOMITING; Start 10/12/20 at 10:30; Stop 10/12/20 at 10:47; Status DC Linezolid/Dextrose 300 ml @ 300 mls/hr ONCE ONCE IV Last administered on 10/12/20at 11:50; Start 10/12/20 at 11:30; Stop 10/12/20 at 12:29; Status DC Meropenem 500 mg/ Sodium Chloride 50 ml @ 100 mls/hr ONCE ONCE IV Last administered on 10/12/20at 11:46; Start 10/12/20 at 11:00; Stop 10/12/20 at 11:29; Status DC Potassium Chloride/Dextrose/ Sod Cl 1,000 ml @ 75 mls/hr [id number] IV Last administered on 10/14/20at 00:27; Start 10/12/20 at 23:50 Ondansetron HCl (Zofran) 4 mg PRN Q6HRS PRN IVP NAUSEA/VOMITING; Start 10/12/20 at 11:00 Amiodarone HCl (Cordarone) 200 mg DAILY PO Last administered on 10/14/20at 08:48; Start 10/12/20 at 15:30 Atorvastatin Calcium (Lipitor) 20 mg DAILY PO Last administered on 10/14/20at 08:48; Start 10/12/20 at 15:30 Metoprolol Tartrate (Lopressor) 25 mg BID PO Last administered on 10/14/20at 08:48; Start 10/12/20 at 21:00 Vitamin A/Vitamin D (Vitamin A & D Ointment) 1 shaquille PRN Q1HR PRN TP SKIN PROTECTION; Start 10/12/20 at 17:15 Doxycycline Hyclate 100 mg/ Dextrose 100 ml @ 50 mls/hr Q12HR IV Last administered on 10/14/20at 08:49; Start 10/13/20 at 12:00 Active Scripts Active Reported Colace (Docusate Sodium) 100 Mg Capsule 1 Cap PO BID 15 Days Tylenol (Acetaminophen) 325 Mg Tablet 650 Mg PO PRN Q6HRS PRN Trazodone Hcl 50 Mg Tablet 1 Tab PO QHS Protonix (Pantoprazole Sodium) 20 Mg Tablet.dr 1 Tab PO DAILY Metoprolol Tartrate 25 Mg Tablet 1 Tab PO BID Merrem (Meropenem) 500 Mg Vial 500 Mg IV Q6HRS Zyvox (Linezolid) 600 Mg Tablet 600 Mg PO BID Duoneb 0.5-3(2.5) Mg/3 Ml (Albuterol/Ipratropium) 3 Ml Ampul.neb 3 Ml NEB QID Lantus Solostar (Insulin Glargine,Hum.rec.anlog) 100 Unit/1 Ml Insuln.pen 22 Unit SQ QHS Atorvastatin Calcium 20 Mg Tablet 1 Tab PO DAILY Amlodipine Besylate 5 Mg Tablet 5 Mg PO DAILY Amiodarone Hcl 200 Mg Tablet 1 Tab PO DAILY Vitals/I & O Vital Sign - Last 24 Hours 10/13/20 10/13/20 10/13/20 10/13/20 12:15 13:00 14:00 15:00 Temp 99.3 99.3 Pulse 86 91 88 Resp 20 20 20 B/P (MAP) 127/74 (91) 128/73 (91) 125/74 (91) Pulse Ox 99 100 100 100 O2 Delivery Tracheal Collar Tracheal Collar Tracheal Collar Tracheal Collar O2 Flow Rate 10.0 10/13/20 10/13/20 10/13/20 10/13/20 15:36 16:00 16:00 16:51 Temp 98.4 99.3 98.4 99.3 Pulse 88 85 Resp 20 14 B/P (MAP) 133/70 (91) 123/64 Pulse Ox 99 100 O2 Delivery Tracheal Collar Tracheal Collar Trach Collar O2 Flow Rate 10.0 10.0 10/13/20 10/13/20 10/13/20 10/13/20 17:00 17:05 18:00 18:00 Temp 98.4 98.4 98.4 98.4 Pulse 97 87 89 95 Resp 20 20 20 18 B/P (MAP) 129/73 (91) 114/70 128/70 (89) 130/66 Pulse Ox 100 100 O2 Delivery Tracheal Collar Tracheal Collar 10/13/20 10/13/20 10/13/20 10/13/20 18:52 19:00 20:00 20:00 Temp 98.4 98.8 98.4 98.8 Pulse 90 94 100 Resp 20 18 18 B/P (MAP) 133/70 127/72 (90) 123/71 (88) Pulse Ox 100 100 O2 Delivery Tracheal Collar Ventilator Mechanical Ventilator 10/13/20 10/13/20 10/13/20 10/13/20 20:10 20:39 21:00 22:00 Pulse 100 78 73 Resp 16 16 B/P (MAP) 123/71 147/64 (91) 136/79 (98) Pulse Ox 100 95 100 O2 Delivery Ventilator Tracheal Collar Tracheal Collar 10/13/20 10/14/20 10/14/20 10/14/20 23:00 00:00 00:00 00:27 Temp 98.8 98.8 Pulse 92 74 Resp 18 20 B/P (MAP) 144/74 (97) 148/76 (100) Pulse Ox 99 100 100 O2 Delivery Tracheal Collar Mechanical Ventilator Ventilator Ventilator 10/14/20 10/14/20 10/14/20 10/14/20 01:00 02:00 03:00 04:00 Temp 97.9 97.9 Pulse 78 75 70 74 Resp 18 23 22 20 B/P (MAP) 125/74 (91) 122/79 (93) 123/79 (94) 142/73 (96) Pulse Ox 100 100 100 100 O2 Delivery Ventilator Ventilator Ventilator Ventilator 10/14/20 10/14/20 10/14/20 10/14/20 04:00 05:00 05:08 06:00 Pulse 76 73 Resp 21 20 B/P (MAP) 145/88 (107) 138/79 (98) Pulse Ox 100 100 100 O2 Delivery Mechanical Ventilator Ventilator Ventilator Ventilator 10/14/20 10/14/20 10/14/20 10/14/20 07:00 07:21 08:00 08:00 Pulse 70 71 Resp 20 20 B/P (MAP) 144/83 (103) 128/76 (93) Pulse Ox 100 100 100 O2 Delivery Tracheal Collar Tracheal Collar Trach Collar Tracheal Collar O2 Flow Rate 8.0 10.0 10/14/20 10/14/20 10/14/20 10/14/20 08:48 08:48 09:00 10:00 Temp 98.3 98.3 Pulse 71 71 71 65 Resp 20 20 B/P (MAP) 128/76 128/76 135/86 (102) 108/62 (77) Pulse Ox 100 100 O2 Delivery Tracheal Collar Tracheal Collar 10/14/20 10/14/20 11:00 11:28 Pulse 67 Resp 20 B/P (MAP) 97/60 (72) Pulse Ox 100 100 O2 Delivery Tracheal Collar Tracheal Collar O2 Flow Rate 8.0 Intake and Output 10/13/20 10/13/20 10/14/20 15:00 23:00 07:00 Intake Total 800 ml 687 ml 2546 ml Output Total 750 ml 610 ml 295 ml Balance 50 ml 77 ml 2251 ml Justifications for Admission Other Justification GLENNY GANN MD Oct 14, 2020 12:04
[2020-10-14] MEDS: FERROUS SULFATE ORAL 300 MG/5 ML SOLUTION. PEG SCH ×2 (14:06→20:40)
--- NOTE | 2020-10-14 15:49 | NUR ---
SS following up with discharge planning. SS reviewed pt chart and discussed with pt RN. Pt is currently on trach collar at eight liters. Pt on IV Doxycycline and IV Meropenem. Pt is from [facility], ; fax [phone]. Pt accepted back at [facility] but new insurance authorization is needed. [facility] submitted for insurance authorization today and it is currently pending. SS will continue to follow for discharge planning.
[2020-10-15] VITALS (17 sets, daily range): BP systolic 118–148; BP diastolic 65–97
[2020-10-15 05:26] LABS: BASO # 0.1 x10^3/uL (0.0-0.2); BASO % 1 % (0-3); EOS # 0.3 x10^3/uL (0.0-0.7); EOS % 3 % (0-3); HEMATOCRIT 28.2 % (39.0-53.0); HEMOGLOBIN 9.3 g/dL (13.0-17.5); LYMPH # 1.3 x10^3/uL (1.0-4.8); LYMPH % 12 % (24-48); MEAN CORPUSCULAR HEMOGLOBIN 30 pg (25-35); MEAN CORPUSCULAR HGB CONC 33 g/dL (31-37); MEAN CORPUSCULAR VOLUME 90 fL (79-100); MONO # 0.6 x10^3/uL (0.0-1.1); MONO % 5 % (0-9); NEUT # 8.8 x10^3/uL (1.8-7.7); NEUT % 79 % (31-73); PLATELET COUNT 231 x10^3/uL (140-400); RED BLOOD COUNT 3.13 x10^6/uL (4.30-5.70); RED CELL DISTRIBUTION WIDTH 15.8 % (11.5-14.5); WHITE BLOOD COUNT 11.2 x10^3/uL (4.0-11.0)
[2020-10-15 05:49] LABS: CALCIUM 7.9 mg/dL (8.5-10.1); CREATININE 1.1 mg/dL (0.7-1.3); GFR 68.1; POTASSIUM 4.3 mmol/L (3.5-5.1)
--- NOTE | 2020-10-15 05:55 | NUR ---
Nursing Note: Rt place patient on PS tonight. Patient kept on for about an hour, before continually taking it off. Placed back on the trach collar at 40%, even with that the patient will push it off. Sats remain in the low to mid 90s on room air however. Also taking off blood pressure cuff. Explained the importance of both, patient seems to understand and follows directions.
[2020-10-15] MEDS: INSULIN LISPRO 300 UNITS/3 ML VIAL. SQ SCH ×4 (05:57→18:00)
[2020-10-15] MEDS: MEROPENEM 500 MG in IV NORMAL SALINE 50ML 50 ML IV SCH ×3 (06:03→17:10)
[2020-10-15] MEDS: POTASSIUM CL 20MEQ D5-0.45NACL 1,000 ML IV SCH (06:03)
[2020-10-15] MEDS: FERROUS SULFATE ORAL 300 MG/5 ML SOLUTION. PEG SCH (08:33)
[2020-10-15] MEDS: PANTOPRAZOLE IV PUSH 40 MG VIAL. IVP SCH (08:33)
[2020-10-15] MEDS: AMIODARONE HCL 200 MG TABLET. PO SCH (08:34)
[2020-10-15] MEDS: ATORVASTATIN CALCIUM 20 MG TABLET PO SCH (08:34)
[2020-10-15] MEDS: METOPROLOL TART IMMED RELEASE 25 MG TABLET. PO SCH (08:34)
[2020-10-15] MEDS: DOXYCYCLINE HYCLATE 100 MG in IV DEXTROSE 5% 100ML 100 ML IV SCH (08:43)
[2020-10-15] MEDS: IPRATRPIUM/ALBUTEROL 0.5/2.5MG 3 ML NEBU. NEB SCH ×4 (08:56→17:53)
--- NOTE | 2020-10-15 09:02 | PDOC ---
PULMONARY PROGRESS NOTE Diagnosis PROBLEM LIST Problems Medical Problems: (1) Altered mental status Status: Acute (2) Hematochezia Status: Acute (3) Tracheostomy care Status: Acute Objective Vital Signs Date Time Temp Pulse Resp B/P (MAP) Pulse Ox O2 Delivery O2 Flow Rate FiO2 10/15/20 08:56 100 Tracheal Collar 10.0 10/15/20 08:34 98 131/97 10/15/20 07:00 20 10/15/20 04:00 98.2 98.2 Intake and Output 10/15/20 07:00 Intake Total 2246 ml Output Total 1541 ml Balance 705 ml Intake Oral 0 ml IV Total 1625 ml Tube Feeding 221 ml Blood Product 400 ml Output Urine Total 1540 ml Stool Total 1 ml VITALS/I&O Vital Sign - Last 24 Hours 10/14/20 10/14/20 10/14/20 10/14/20 10:00 11:00 11:28 12:00 Pulse 65 67 68 Resp 20 20 20 B/P (MAP) 108/62 (77) 97/60 (72) 112/61 (78) Pulse Ox 100 100 100 100 O2 Delivery Tracheal Collar Tracheal Collar Tracheal Collar Tracheal Collar O2 Flow Rate 8.0 10/14/20 10/14/20 10/14/20 10/14/20 12:00 13:00 14:00 14:59 Pulse 68 68 Resp 20 20 B/P (MAP) 115/71 (86) 135/61 (85) Pulse Ox 100 100 100 O2 Delivery Trach Collar Tracheal Collar Tracheal Collar Tracheal Collar O2 Flow Rate 10.0 8.0 10/14/20 10/14/20 10/14/20 10/14/20 15:00 16:00 16:00 17:00 Pulse 75 68 66 Resp 20 20 20 B/P (MAP) 119/67 (84) 112/77 (89) 124/75 (91) Pulse Ox 100 100 100 O2 Delivery Tracheal Collar Tracheal Collar Trach Collar Tracheal Collar O2 Flow Rate 10.0 10/14/20 10/14/20 10/14/20 10/14/20 18:00 19:24 19:28 20:09 Temp 98.0 98.0 98.0 98.0 Pulse 68 87 80 Resp 20 20 B/P (MAP) 133/80 (97) 120/87 (98) 119/71 (87) Pulse Ox 100 100 100 O2 Delivery Tracheal Collar Tracheal Collar Trach Collar Tracheal Collar O2 Flow Rate 10.0 10.0 10.0 10/14/20 10/14/20 10/14/20 10/14/20 20:24 20:40 20:56 21:54 Temp 98.0 98.4 98.0 98.4 Pulse 80 84 79 Resp 16 B/P (MAP) 119/71 113/73 (86) 125/72 (89) Pulse Ox 100 100 100 O2 Delivery Tracheal Collar Tracheal Collar O2 Flow Rate 8.0 8.0 8.0 10/14/20 10/14/20 10/14/20 10/15/20 22:57 23:31 23:59 00:21 Temp 98.4 98.4 98.4 98.4 Pulse 83 83 Resp 20 20 B/P (MAP) 129/74 (92) 128/70 (89) Pulse Ox 100 97 100 O2 Delivery Tracheal Collar Trach Collar Tracheal Collar Ventilator O2 Flow Rate 8.0 8.0 8.0 10/15/20 10/15/20 10/15/20 10/15/20 01:00 02:00 03:00 04:00 Temp 98.2 98.2 Pulse 79 91 77 91 Resp 18 18 18 18 B/P (MAP) 135/66 (89) 138/85 (102) 119/91 (100) 119/70 (86) Pulse Ox 100 100 96 95 O2 Delivery PS 10 PS 10 Tracheal Collar Tracheal Collar 10/15/20 10/15/20 10/15/20 10/15/20 04:15 05:00 06:00 07:00 Pulse 90 98 84 Resp 20 20 20 B/P (MAP) 118/65 (82) 144/91 (108) Pulse Ox 92 91 99 O2 Delivery Trach Collar Tracheal Collar Tracheal Collar Tracheal Collar O2 Flow Rate 10.0 10/15/20 10/15/20 10/15/20 08:34 08:34 08:56 Pulse 95 98 B/P (MAP) 131/97 131/97 Pulse Ox 100 O2 Delivery Tracheal Collar O2 Flow Rate 10.0 Intake and Output 10/14/20 10/14/20 10/15/20 15:00 23:00 07:00 Intake Total 0 ml 2246 ml Output Total 530 ml 610 ml 401 ml Balance -530 ml -610 ml 1845 ml Review of Relevant I have reviewed the following items willam (where applicable) has been applied. Labs Laboratory Tests Test 10/13/20 09:52 10/13/20 09:54 10/13/20 18:23 10/14/20 00:20 White Blood Count 9.8 x10^3/uL (4.0-11.0) Red Blood Count 2.36 x10^6/uL (4.30-5.70) Hemoglobin 6.9 g/dL (13.0-17.5) Hematocrit 21.7 % (39.0-53.0) Mean Corpuscular Volume 92 fL (79-100) Mean Corpuscular Hemoglobin 29 pg (25-35) Mean Corpuscular Hemoglobin Concent 32 g/dL (31-37) Red Cell Distribution Width 16.4 % (11.5-14.5) Platelet Count 180 x10^3/uL (140-400) Glucose (Fingerstick) 222 mg/dL (70-99) 171 mg/dL (70-99) 204 mg/dL (70-99) Test 10/14/20 02:00 10/14/20 05:00 10/14/20 05:08 10/14/20 11:42 Hemoglobin 8.8 g/dL (13.0-17.5) 8.4 g/dL (13.0-17.5) White Blood Count 8.4 x10^3/uL (4.0-11.0) Red Blood Count 2.84 x10^6/uL (4.30-5.70) Hematocrit 25.7 % (39.0-53.0) Mean Corpuscular Volume 90 fL (79-100) Mean Corpuscular Hemoglobin 30 pg (25-35) Mean Corpuscular Hemoglobin Concent 33 g/dL (31-37) Red Cell Distribution Width 15.4 % (11.5-14.5) Platelet Count 235 x10^3/uL (140-400) Neutrophils (%) (Auto) 71 % (31-73) Lymphocytes (%) (Auto) 20 % (24-48) Monocytes (%) (Auto) 7 % (0-9) Eosinophils (%) (Auto) 2 % (0-3) Basophils (%) (Auto) 1 % (0-3) Neutrophils # (Auto) 5.9 x10^3/uL (1.8-7.7) Lymphocytes # (Auto) 1.6 x10^3/uL (1.0-4.8) Monocytes # (Auto) 0.6 x10^3/uL (0.0-1.1) Eosinophils # (Auto) 0.2 x10^3/uL (0.0-0.7) Basophils # (Auto) 0.1 x10^3/uL (0.0-0.2) Sodium Level 142 mmol/L (136-145) Potassium Level 4.3 mmol/L (3.5-5.1) Chloride Level 110 mmol/L (98-107) Carbon Dioxide Level 26 mmol/L (21-32) Anion Gap 6 (6-14) Blood Urea Nitrogen 25 mg/dL (8-26) Creatinine 1.4 mg/dL (0.7-1.3) Estimated GFR (Cockcroft-Gault) 51.5 Glucose Level 145 mg/dL (70-99) Calcium Level 8.0 mg/dL (8.5-10.1) Glucose (Fingerstick) 135 mg/dL (70-99) 169 mg/dL (70-99) Test 10/14/20 17:28 10/14/20 23:57 10/15/20 04:30 Glucose (Fingerstick) 146 mg/dL (70-99) 132 mg/dL (70-99) White Blood Count 11.2 x10^3/uL (4.0-11.0) Red Blood Count 3.13 x10^6/uL (4.30-5.70) Hemoglobin 9.3 g/dL (13.0-17.5) Hematocrit 28.2 % (39.0-53.0) Mean Corpuscular Volume 90 fL (79-100) Mean Corpuscular Hemoglobin 30 pg (25-35) Mean Corpuscular Hemoglobin Concent 33 g/dL (31-37) Red Cell Distribution Width 15.8 % (11.5-14.5) Platelet Count 231 x10^3/uL (140-400) Neutrophils (%) (Auto) 79 % (31-73) Lymphocytes (%) (Auto) 12 % (24-48) Monocytes (%) (Auto) 5 % (0-9) Eosinophils (%) (Auto) 3 % (0-3) Basophils (%) (Auto) 1 % (0-3) Neutrophils # (Auto) 8.8 x10^3/uL (1.8-7.7) Lymphocytes # (Auto) 1.3 x10^3/uL (1.0-4.8) Monocytes # (Auto) 0.6 x10^3/uL (0.0-1.1) Eosinophils # (Auto) 0.3 x10^3/uL (0.0-0.7) Basophils # (Auto) 0.1 x10^3/uL (0.0-0.2) Sodium Level 141 mmol/L (136-145) Potassium Level 4.3 mmol/L (3.5-5.1) Chloride Level 105 mmol/L (98-107) Carbon Dioxide Level 26 mmol/L (21-32) Anion Gap 10 (6-14) Blood Urea Nitrogen 18 mg/dL (8-26) Creatinine 1.1 mg/dL (0.7-1.3) Estimated GFR (Cockcroft-Gault) 68.1 Glucose Level 121 mg/dL (70-99) Calcium Level 7.9 mg/dL (8.5-10.1) Laboratory Tests Test 10/14/20 11:42 10/14/20 17:28 10/14/20 23:57 10/15/20 04:30 Glucose (Fingerstick) 169 mg/dL (70-99) 146 mg/dL (70-99) 132 mg/dL (70-99) White Blood Count 11.2 x10^3/uL (4.0-11.0) Red Blood Count 3.13 x10^6/uL (4.30-5.70) Hemoglobin 9.3 g/dL (13.0-17.5) Hematocrit 28.2 % (39.0-53.0) Mean Corpuscular Volume 90 fL (79-100) Mean Corpuscular Hemoglobin 30 pg (25-35) Mean Corpuscular Hemoglobin Concent 33 g/dL (31-37) Red Cell Distribution Width 15.8 % (11.5-14.5) Platelet Count 231 x10^3/uL (140-400) Neutrophils (%) (Auto) 79 % (31-73) Lymphocytes (%) (Auto) 12 % (24-48) Monocytes (%) (Auto) 5 % (0-9) Eosinophils (%) (Auto) 3 % (0-3) Basophils (%) (Auto) 1 % (0-3) Neutrophils # (Auto) 8.8 x10^3/uL (1.8-7.7) Lymphocytes # (Auto) 1.3 x10^3/uL (1.0-4.8) Monocytes # (Auto) 0.6 x10^3/uL (0.0-1.1) Eosinophils # (Auto) 0.3 x10^3/uL (0.0-0.7) Basophils # (Auto) 0.1 x10^3/uL (0.0-0.2) Sodium Level 141 mmol/L (136-145) Potassium Level 4.3 mmol/L (3.5-5.1) Chloride Level 105 mmol/L (98-107) Carbon Dioxide Level 26 mmol/L (21-32) Anion Gap 10 (6-14) Blood Urea Nitrogen 18 mg/dL (8-26) Creatinine 1.1 mg/dL (0.7-1.3) Estimated GFR (Cockcroft-Gault) 68.1 Glucose Level 121 mg/dL (70-99) Calcium Level 7.9 mg/dL (8.5-10.1) Microbiology 10/12/20 Blood Culture - Preliminary, Resulted NO GROWTH AFTER 1 DAY Medications Current Medications Iohexol (Omnipaque 300 Mg/ml) 75 ml 1X ONCE IV Last administered on 10/12/20at 08:15; Start 10/12/20 at 08:15; Stop 10/12/20 at 08:16; Status DC Info (CONTRAST GIVEN -- Rx MONITORING) 1 each PRN DAILY PRN MC SEE COMMENTS; Start 10/12/20 at 08:30; Stop 10/14/20 at 08:29; Status DC Ondansetron HCl (Zofran) 4 mg PRN Q8HRS PRN IV NAUSEA/VOMITING; Start 10/12/20 at 10:15; Stop 10/12/20 at 11:34; Status DC Morphine Sulfate (Morphine Sulfate) 4 mg PRN Q2HR PRN IV PAIN; Start 10/12/20 at 10:15; Stop 10/13/20 at 10:14; Status DC Potassium Chloride/Dextrose/ Sod Cl 1,000 ml @ 75 mls/hr [id number] IV Last administered on 10/12/20at 11:46; Start 10/12/20 at 10:30; Stop 10/12/20 at 2 3:49; Status DC Pantoprazole Sodium (PROTONIX VIAL for IV PUSH) 40 mg DAILY IVP Last administered on 10/15/20at 08:33; Start 10/13/20 at 09:00 Meropenem 500 mg/ Sodium Chloride 50 ml @ 100 mls/hr Q6HRS IV Last administered on 10/15/20at 06:03; Start 10/12/20 at 18:00 Linezolid/Dextrose 300 ml @ 300 mls/hr Q12HR IV Last administered on 10/14/20at 08:49; Start 10/12/20 at 21:00; Stop 10/14/20 at 10:45; Status DC Albuterol/ Ipratropium (Duoneb) 3 ml RTQID NEB Last administered on 10/15/20at 08:56; Start 10/12/20 at 12:00 Insulin Human Lispro (HumaLOG) BG 300-39,9=4 units... Q6HRS SQ Last administered on 10/14/20at 00:26; Start 10/12/20 at 12:00 Metoprolol Tartrate (Lopressor Vial) 5 mg PRN Q6HRS PRN IVP TACHYCARDIA AFIB RVR RATE>120; Start 10/12/20 at 10:30 Ondansetron HCl (Zofran) 4 mg Q6HRS PRN IVP NAUSEA/VOMITING; Start 10/12/20 at 10:30; Stop 10/12/20 at 10:47; Status DC Linezolid/Dextrose 300 ml @ 300 mls/hr ONCE ONCE IV Last administered on 10/12/20at 11:50; Start 10/12/20 at 11:30; Stop 10/12/20 at 12:29; Status DC Meropenem 500 mg/ Sodium Chloride 50 ml @ 100 mls/hr ONCE ONCE IV Last administered on 10/12/20at 11:46; Start 10/12/20 at 11:00; Stop 10/12/20 at 11:29; Status DC Potassium Chloride/Dextrose/ Sod Cl 1,000 ml @ 75 mls/hr [id number] IV Last administered on 10/15/20at 06:03; Start 10/12/20 at 23:50 Ondansetron HCl (Zofran) 4 mg PRN Q6HRS PRN IVP NAUSEA/VOMITING; Start 10/12/20 at 11:00 Amiodarone HCl (Cordarone) 200 mg DAILY PO Last administered on 10/15/20at 08:34; Start 10/12/20 at 15:30 Atorvastatin Calcium (Lipitor) 20 mg DAILY PO Last administered on 10/15/20at 08:34; Start 10/12/20 at 15:30 Metoprolol Tartrate (Lopressor) 25 mg BID PO Last administered on 10/15/20at 08:34; Start 10/12/20 at 21:00 Vitamin A/Vitamin D (Vitamin A & D Ointment) 1 shaquille PRN Q1HR PRN TP SKIN PROTECTION; Start 10/12/20 at 17:15 Doxycycline Hyclate 100 mg/ Dextrose 100 ml @ 50 mls/hr Q12HR IV Last administered on 10/15/20at 08:43; Start 10/13/20 at 12:00 Ferrous Sulfate (Iron Oral Solution) 300 mg BID PEG Last administered on 10/15/20at 08:33; Start 10/14/20 at 13:00 Active Scripts Active Reported Colace (Docusate Sodium) 100 Mg Capsule 1 Cap PO BID 15 Days Tylenol (Acetaminophen) 325 Mg Tablet 650 Mg PO PRN Q6HRS PRN Trazodone Hcl 50 Mg Tablet 1 Tab PO QHS Protonix (Pantoprazole Sodium) 20 Mg Tablet.dr 1 Tab PO DAILY Metoprolol Tartrate 25 Mg Tablet 1 Tab PO BID Merrem (Meropenem) 500 Mg Vial 500 Mg IV Q6HRS Zyvox (Linezolid) 600 Mg Tablet 600 Mg PO BID Duoneb 0.5-3(2.5) Mg/3 Ml (Albuterol/Ipratropium) 3 Ml Ampul.neb 3 Ml NEB QID Lantus Solostar (Insulin Glargine,Hum.rec.anlog) 100 Unit/1 Ml Insuln.pen 22 Unit SQ QHS Atorvastatin Calcium 20 Mg Tablet 1 Tab PO DAILY Amlodipine Besylate 5 Mg Tablet 5 Mg PO DAILY Amiodarone Hcl 200 Mg Tablet 1 Tab PO DAILY Justicifation of Admission Dx: Justifications for Admission: Justification of Admission Dx: Yes CHINO JUÁREZ MD Oct 15, 2020 09:02
--- NOTE | 2020-10-15 11:02 | PDOC ---
Date of Service: DATE: 10/15/20 TIME: 10:58 Subjective: Subjective: Indicates no pain. Objective: Objective: No bleeding per nurse - smear of stool last night. Tolerating PEG feeds, going to increase rate. Vital Signs: Vital Signs Date Time Temp Pulse Resp B/P (MAP) Pulse Ox O2 Delivery O2 Flow Rate FiO2 10/15/20 10:00 78 18 118/65 (82) 98 Tracheal Collar 10/15/20 08:56 10.0 10/15/20 08:00 97.4 97.4 Labs: Laboratory Tests Test 10/14/20 11:42 10/14/20 17:28 10/14/20 23:57 10/15/20 04:30 Glucose (Fingerstick) 169 mg/dL 146 mg/dL 132 mg/dL White Blood Count 11.2 x10^3/uL Red Blood Count 3.13 x10^6/uL Hemoglobin 9.3 g/dL Hematocrit 28.2 % Mean Corpuscular Volume 90 fL Mean Corpuscular Hemoglobin 30 pg Mean Corpuscular Hemoglobin Concent 33 g/dL Red Cell Distribution Width 15.8 % Platelet Count 231 x10^3/uL Neutrophils (%) (Auto) 79 % Lymphocytes (%) (Auto) 12 % Monocytes (%) (Auto) 5 % Eosinophils (%) (Auto) 3 % Basophils (%) (Auto) 1 % Neutrophils # (Auto) 8.8 x10^3/uL Lymphocytes # (Auto) 1.3 x10^3/uL Monocytes # (Auto) 0.6 x10^3/uL Eosinophils # (Auto) 0.3 x10^3/uL Basophils # (Auto) 0.1 x10^3/uL Sodium Level 141 mmol/L Potassium Level 4.3 mmol/L Chloride Level 105 mmol/L Carbon Dioxide Level 26 mmol/L Anion Gap 10 Blood Urea Nitrogen 18 mg/dL Creatinine 1.1 mg/dL Estimated GFR (Cockcroft-Gault) 68.1 Glucose Level 121 mg/dL Calcium Level 7.9 mg/dL PE: GEN: NAD LUNGS: trach/col HEART: RRR ABD: soft, PEG in place, tube feeds @ 20cc NEURO/PSYCH: awake and alert A/P: Hematochezia/melena - resolved Anemia - better Recent COVID-19 infection s/p tracheostomy and PEG 09/24/20 A Fib - Lesia held -- Will review when okay to restart Lesia hough/ Dr. Peterson. Justicifation of Admission Dx: Justifications for Admission: Justification of Admission Dx: Yes YOSVANY MCINTOSH Oct 15, 2020 11:02
--- NOTE | 2020-10-15 12:32 | PDOC ---
Infectious Disease Note Subjective: Subjective Resting quietly No fevers last 24 hours No increase O2 needs. Not require any blood transfusion No hematochezia or melena Vital Signs: Vital Signs Vital Signs Date Time Temp Pulse Resp B/P (MAP) Pulse Ox O2 Delivery O2 Flow Rate FiO2 10/15/20 12:17 98.3 90 20 148/87 (107) 95 Tracheal Collar 98.3 10/15/20 12:15 10.0 Physical Exam: PHYSICAL EXAM GENERAL: Patient is propped up in bed, resting quietly, briefly opens eyes to voice HEENT: Pupils equally round. Normal conjunctivae. Oral cavity pink, moist, some bacterial overgrowth on the tongue. NECK: Tracheostomy with an inferior tracheal wound -dressed. LUNGS: Diminished aeration in the bases. No accessory muscle use. HEART: Normal S1 and S2. ABDOMEN: Nondistended, soft, nontender with bowel sounds present. Gastrostomy tube, clean/sutured. GENITOURINARY: Indwelling Najera in place. EXTREMITIES: No gross edema or cyanosis. Heeboots bilaterally. SKIN: Warm to touch with signs of generalized rash. Stage III gluteal pressure wound (refer to wound care notes for further description/pictures). NEUROLOGIC: Alert, not verbal. Left upper extremity midline clean Medications: Inpatient Meds: Medications reviewed. Labs: Lab Laboratory Tests Test 10/14/20 17:28 10/14/20 23:57 10/15/20 04:30 10/15/20 12:21 Glucose (Fingerstick) 146 mg/dL (70-99) 132 mg/dL (70-99) 184 mg/dL (70-99) White Blood Count 11.2 x10^3/uL (4.0-11.0) Red Blood Count 3.13 x10^6/uL (4.30-5.70) Hemoglobin 9.3 g/dL (13.0-17.5) Hematocrit 28.2 % (39.0-53.0) Mean Corpuscular Volume 90 fL (79-100) Mean Corpuscular Hemoglobin 30 pg (25-35) Mean Corpuscular Hemoglobin Concent 33 g/dL (31-37) Red Cell Distribution Width 15.8 % (11.5-14.5) Platelet Count 231 x10^3/uL (140-400) Neutrophils (%) (Auto) 79 % (31-73) Lymphocytes (%) (Auto) 12 % (24-48) Monocytes (%) (Auto) 5 % (0-9) Eosinophils (%) (Auto) 3 % (0-3) Basophils (%) (Auto) 1 % (0-3) Neutrophils # (Auto) 8.8 x10^3/uL (1.8-7.7) Lymphocytes # (Auto) 1.3 x10^3/uL (1.0-4.8) Monocytes # (Auto) 0.6 x10^3/uL (0.0-1.1) Eosinophils # (Auto) 0.3 x10^3/uL (0.0-0.7) Basophils # (Auto) 0.1 x10^3/uL (0.0-0.2) Sodium Level 141 mmol/L (136-145) Potassium Level 4.3 mmol/L (3.5-5.1) Chloride Level 105 mmol/L (98-107) Carbon Dioxide Level 26 mmol/L (21-32) Anion Gap 10 (6-14) Blood Urea Nitrogen 18 mg/dL (8-26) Creatinine 1.1 mg/dL (0.7-1.3) Estimated GFR (Cockcroft-Gault) 68.1 Glucose Level 121 mg/dL (70-99) Calcium Level 7.9 mg/dL (8.5-10.1) Objective: Assessment: Fever, improved. He was started empirically on meropenem and linezolid on 10/08. Bordetella in sputum from 09/11 and 09/14. Leukocytosis. ANTIBIOTIC ALLERGIES TO AMOXICILLIN, AMPICILLIN, AND CLARITHROMYCIN, REACTIONS UNKNOWN. He has tolerated ceftriaxone and azithromycin. Gluteal pressure wounds, stage 3 and inferior tracheostomy wound. Acute gastrointestinal bleed. Stool study/C. diff neg. Acute blood loss anemia s/p PRBCs COVID-19 recovery, treated with dexamethasone. History of Campylobacter, treated. Atrial fibrillation, on amiodarone. History of acute kidney injury, now off hemodialysis. Diabetes mellitus type 2. Hypertension. Coronary artery disease. Plan: Plan of Care Continue doxycycline and Merrem Monitor temperature and WBC trend. Local wound care and offloading as directed per wound team. Maintain aspiration precautions. Maintain midline. Supportive care. Discussed with nursing LESLI MONTES MDb 26, 2021 12:32
--- NOTE | 2020-10-15 15:13 | NUR ---
SS following up with discharge planning. SS reviewed pt chart and discussed with pt RN. Pt is currently on trach collar. Pt on IV Doxycycline and IV Meropenem. Pt is from [facility], ; fax [phone]. Pt accepted back and SS currently awaiting insurance authorization. Discharge orders received and faxed to [facility]. Packet placed on chart. SS will continue to follow for discharge planning.
--- NOTE | 2020-10-15 15:40 | NUR ---
SS following up with discharge planning. Insurance authorization received. Pt will discharge today and go to [facility] at 1830 via [facility] ambulance, . Packet and ambulance form on the chart. Pt, pt's RN, and pt's family notified.
--- NOTE | 2020-10-15 15:48 | PDOC ---
PROGRESS NOTES Date of Service DATE: 10/15/20 TIME: 15:44 Subjective Subjective no further GI bleeding. hgb stable. discussed with nurse. tolerates tube feeding which is slowly increasing to goal rate Objective Objective Vital Signs Date Time Temp Pulse Resp B/P (MAP) Pulse Ox O2 Delivery O2 Flow Rate FiO2 10/15/20 15:00 91 18 119/85 (96) 99 Tracheal Collar 10/15/20 12:49 8.0 10/15/20 12:17 98.3 98.3 Intake and Output 10/15/20 07:00 Intake Total 2246 ml Output Total 1541 ml Balance 705 ml Intake Oral 0 ml IV Total 1625 ml Tube Feeding 221 ml Blood Product 400 ml Output Urine Total 1540 ml Stool Total 1 ml Physical Exam Abdomen: Soft, Other (g tube) Heart: Regular rate, Normal S1, Normal S2 Extremities: No edema General: Alert HEENT: Atraumatic, Other (tracheostomy) Lungs: Clear to auscultation Neuro: Other (alert) Psych/Mental Status: Other (alert) Skin: No rashes Assessment Assessment Problems1. Acute gastrointestinal bleed. melena noted at [facility]. hematochezia at [facility]. 2. Acute blood loss anemia on top of anemia of chronic disease. 3. Acute on chronic hypoxic respiratory failure. 4. Chronic obstructive pulmonary disease. 5. Recent COVID-19 pneumonia, out of isolation. 6. Diabetes mellitus type 2, on insulin.with hyperglycemia 7. Hypertension. 8. Paroxysmal atrial fibrillation.currently in nsr. off eliquis due ti GI bleed 9. Hyperlipidemia. 10. Deep vein thrombosis, right upper extremity. 11. Morbid obesity. 12. Tracheostomy. 13. Severe protein-calorie malnutrition. 14. Oropharyngeal dysphagia, previously maintained on gastrostomy tube feedings. 15. Acute kidney injury improved. may be at baseline creatinine 1.4. Medical Problems: (1) Altered mental status Status: Acute (2) Hematochezia Status: Acute (3) Tracheostomy care Status: Acute Plan Plan of Care increase tube feeding contniue PPI off eliquis awaiting insurance approval for transfer back to [facility] hospital Comment Review of Relevant I have reviewed the following items willam (where applicable) has been applied. Labs Laboratory Tests Test 10/13/20 18:23 10/14/20 00:20 10/14/20 02:00 10/14/20 05:00 Glucose (Fingerstick) 171 mg/dL (70-99) 204 mg/dL (70-99) Hemoglobin 8.8 g/dL (13.0-17.5) 8.4 g/dL (13.0-17.5) White Blood Count 8.4 x10^3/uL (4.0-11.0) Red Blood Count 2.84 x10^6/uL (4.30-5.70) Hematocrit 25.7 % (39.0-53.0) Mean Corpuscular Volume 90 fL (79-100) Mean Corpuscular Hemoglobin 30 pg (25-35) Mean Corpuscular Hemoglobin Concent 33 g/dL (31-37) Red Cell Distribution Width 15.4 % (11.5-14.5) Platelet Count 235 x10^3/uL (140-400) Neutrophils (%) (Auto) 71 % (31-73) Lymphocytes (%) (Auto) 20 % (24-48) Monocytes (%) (Auto) 7 % (0-9) Eosinophils (%) (Auto) 2 % (0-3) Basophils (%) (Auto) 1 % (0-3) Neutrophils # (Auto) 5.9 x10^3/uL (1.8-7.7) Lymphocytes # (Auto) 1.6 x10^3/uL (1.0-4.8) Monocytes # (Auto) 0.6 x10^3/uL (0.0-1.1) Eosinophils # (Auto) 0.2 x10^3/uL (0.0-0.7) Basophils # (Auto) 0.1 x10^3/uL (0.0-0.2) Sodium Level 142 mmol/L (136-145) Potassium Level 4.3 mmol/L (3.5-5.1) Chloride Level 110 mmol/L (98-107) Carbon Dioxide Level 26 mmol/L (21-32) Anion Gap 6 (6-14) Blood Urea Nitrogen 25 mg/dL (8-26) Creatinine 1.4 mg/dL (0.7-1.3) Estimated GFR (Cockcroft-Gault) 51.5 Glucose Level 145 mg/dL (70-99) Calcium Level 8.0 mg/dL (8.5-10.1) Test 10/14/20 05:08 10/14/20 11:42 10/14/20 17:28 10/14/20 23:57 Glucose (Fingerstick) 135 mg/dL (70-99) 169 mg/dL (70-99) 146 mg/dL (70-99) 132 mg/dL (70-99) Test 10/15/20 04:30 10/15/20 12:21 White Blood Count 11.2 x10^3/uL (4.0-11.0) Red Blood Count 3.13 x10^6/uL (4.30-5.70) Hemoglobin 9.3 g/dL (13.0-17.5) Hematocrit 28.2 % (39.0-53.0) Mean Corpuscular Volume 90 fL (79-100) Mean Corpuscular Hemoglobin 30 pg (25-35) Mean Corpuscular Hemoglobin Concent 33 g/dL (31-37) Red Cell Distribution Width 15.8 % (11.5-14.5) Platelet Count 231 x10^3/uL (140-400) Neutrophils (%) (Auto) 79 % (31-73) Lymphocytes (%) (Auto) 12 % (24-48) Monocytes (%) (Auto) 5 % (0-9) Eosinophils (%) (Auto) 3 % (0-3) Basophils (%) (Auto) 1 % (0-3) Neutrophils # (Auto) 8.8 x10^3/uL (1.8-7.7) Lymphocytes # (Auto) 1.3 x10^3/uL (1.0-4.8) Monocytes # (Auto) 0.6 x10^3/uL (0.0-1.1) Eosinophils # (Auto) 0.3 x10^3/uL (0.0-0.7) Basophils # (Auto) 0.1 x10^3/uL (0.0-0.2) Sodium Level 141 mmol/L (136-145) Potassium Level 4.3 mmol/L (3.5-5.1) Chloride Level 105 mmol/L (98-107) Carbon Dioxide Level 26 mmol/L (21-32) Anion Gap 10 (6-14) Blood Urea Nitrogen 18 mg/dL (8-26) Creatinine 1.1 mg/dL (0.7-1.3) Estimated GFR (Cockcroft-Gault) 68.1 Glucose Level 121 mg/dL (70-99) Calcium Level 7.9 mg/dL (8.5-10.1) Glucose (Fingerstick) 184 mg/dL (70-99) Laboratory Tests Test 10/14/20 17:28 10/14/20 23:57 10/15/20 04:30 10/15/20 12:21 Glucose (Fingerstick) 146 mg/dL (70-99) 132 mg/dL (70-99) 184 mg/dL (70-99) White Blood Count 11.2 x10^3/uL (4.0-11.0) Red Blood Count 3.13 x10^6/uL (4.30-5.70) Hemoglobin 9.3 g/dL (13.0-17.5) Hematocrit 28.2 % (39.0-53.0) Mean Corpuscular Volume 90 fL (79-100) Mean Corpuscular Hemoglobin 30 pg (25-35) Mean Corpuscular Hemoglobin Concent 33 g/dL (31-37) Red Cell Distribution Width 15.8 % (11.5-14.5) Platelet Count 231 x10^3/uL (140-400) Neutrophils (%) (Auto) 79 % (31-73) Lymphocytes (%) (Auto) 12 % (24-48) Monocytes (%) (Auto) 5 % (0-9) Eosinophils (%) (Auto) 3 % (0-3) Basophils (%) (Auto) 1 % (0-3) Neutrophils # (Auto) 8.8 x10^3/uL (1.8-7.7) Lymphocytes # (Auto) 1.3 x10^3/uL (1.0-4.8) Monocytes # (Auto) 0.6 x10^3/uL (0.0-1.1) Eosinophils # (Auto) 0.3 x10^3/uL (0.0-0.7) Basophils # (Auto) 0.1 x10^3/uL (0.0-0.2) Sodium Level 141 mmol/L (136-145) Potassium Level 4.3 mmol/L (3.5-5.1) Chloride Level 105 mmol/L (98-107) Carbon Dioxide Level 26 mmol/L (21-32) Anion Gap 10 (6-14) Blood Urea Nitrogen 18 mg/dL (8-26) Creatinine 1.1 mg/dL (0.7-1.3) Estimated GFR (Cockcroft-Gault) 68.1 Glucose Level 121 mg/dL (70-99) Calcium Level 7.9 mg/dL (8.5-10.1) Microbiology 10/12/20 Blood Culture - Preliminary, Resulted NO GROWTH AFTER 1 DAY Medications Current Medications Iohexol (Omnipaque 300 Mg/ml) 75 ml 1X ONCE IV Last administered on 10/12/20at 08:15; Start 10/12/20 at 08:15; Stop 10/12/20 at 08:16; Status DC Info (CONTRAST GIVEN -- Rx MONITORING) 1 each PRN DAILY PRN MC SEE COMMENTS; Start 10/12/20 at 08:30; Stop 10/14/20 at 08:29; Status DC Ondansetron HCl (Zofran) 4 mg PRN Q8HRS PRN IV NAUSEA/VOMITING; Start 10/12/20 at 10:15; Stop 10/12/20 at 11:34; Status DC Morphine Sulfate (Morphine Sulfate) 4 mg PRN Q2HR PRN IV PAIN; Start 10/12/20 at 10:15; Stop 10/13/20 at 10:14; Status DC Potassium Chloride/Dextrose/ Sod Cl 1,000 ml @ 75 mls/hr [id number] IV Last administered on 10/12/20at 11:46; Start 10/12/20 at 10:30; Stop 10/12/20 at 23:49; Status DC Pantoprazole Sodium (PROTONIX VIAL for IV PUSH) 40 mg DAILY IVP Last administered on 10/15/20at 08:33; Start 10/13/20 at 09:00; Stop 10/15/20 at 11:04; Status DC Meropenem 500 mg/ Sodium Chloride 50 ml @ 100 mls/hr Q6HRS IV Last administered on 10/15/20at 12:27; Start 10/12/20 at 18:00 Linezolid/Dextrose 300 ml @ 300 mls/hr Q12HR IV Last administered on 10/14/20at 08:49; Start 10/12/20 at 21:00; Stop 10/14/20 at 10:45; Status DC Albuterol/ Ipratropium (Duoneb) 3 ml RTQID NEB Last administered on 10/15/20at 12:48; Start 10/12/20 at 12:00 Insulin Human Lispro (HumaLOG) BG 300-39,9=4 units... Q6HRS SQ Last administered on 10/14/20at 00:26; Start 10/12/20 at 12:00 Metoprolol Tartrate (Lopressor Vial) 5 mg PRN Q6HRS PRN IVP TACHYCARDIA AFIB RVR RATE>120; Start 10/12/20 at 10:30 Ondansetron HCl (Zofran) 4 mg Q6HRS PRN IVP NAUSEA/VOMITING; Start 10/12/20 at 10:30; Stop 10/12/20 at 10:47; Status DC Linezolid/Dextrose 300 ml @ 300 mls/hr ONCE ONCE IV Last administered on 10/12/20at 11:50; Start 10/12/20 at 11:30; Stop 10/12/20 at 12:29; Status DC Meropenem 500 mg/ Sodium Chloride 50 ml @ 100 mls/hr ONCE ONCE IV Last administered on 10/12/20at 11:46; Start 10/12/20 at 11:00; Stop 10/12/20 at 11:29; Status DC Potassium Chloride/Dextrose/ Sod Cl 1,000 ml @ 75 mls/hr [id number] IV Last administered on 10/15/20at 06:03; Start 10/12/20 at 23:50 Ondansetron HCl (Zofran) 4 mg PRN Q6HRS PRN IVP NAUSEA/VOMITING; Start 10/12/20 at 11:00 Amiodarone HCl (Cordarone) 200 mg DAILY PO Last administered on 10/15/20at 08:34; Start 10/12/20 at 15:30 Atorvastatin Calcium (Lipitor) 20 mg DAILY PO Last administered on 10/15/20at 08:34; Start 10/12/20 at 15:30 Metoprolol Tartrate (Lopressor) 25 mg BID PO Last administered on 10/15/20at 08:34; Start 10/12/20 at 21:00 Vitamin A/Vitamin D (Vitamin A & D Ointment) 1 shaquille PRN Q1HR PRN TP SKIN PROTECTION; Start 10/12/20 at 17:15 Doxycycline Hyclate 100 mg/ Dextrose 100 ml @ 50 mls/hr Q12HR IV Last administered on 10/15/20at 08:43; Start 10/13/20 at 12:00 Ferrous Sulfate (Iron Oral Solution) 300 mg BID PEG Last administered on 10/15/20at 08:33; Start 10/14/20 at 13:00 Lansoprazole (Prevacid) 30 mg DAILY FT ; Start 10/16/20 at 07:30 Active Scripts Active Reported Colace (Docusate Sodium) 100 Mg Capsule 1 Cap PO BID 15 Days Tylenol (Acetaminophen) 325 Mg Tablet 650 Mg PO PRN Q6HRS PRN Trazodone Hcl 50 Mg Tablet 1 Tab PO QHS Protonix (Pantoprazole Sodium) 20 Mg Tablet.dr 1 Tab PO DAILY Metoprolol Tartrate 25 Mg Tablet 1 Tab PO BID Merrem (Meropenem) 500 Mg Vial 500 Mg IV Q6HRS Zyvox (Linezolid) 600 Mg Tablet 600 Mg PO BID Duoneb 0.5-3(2.5) Mg/3 Ml (Albuterol/Ipratropium) 3 Ml Ampul.neb 3 Ml NEB QID Lantus Solostar (Insulin Glargine,Hum.rec.anlog) 100 Unit/1 Ml Insuln.pen 22 Unit SQ QHS Atorvastatin Calcium 20 Mg Tablet 1 Tab PO DAILY Amlodipine Besylate 5 Mg Tablet 5 Mg PO DAILY Amiodarone Hcl 200 Mg Tablet 1 Tab PO DAILY Vitals/I & O Vital Sign - Last 24 Hours 10/14/20 10/14/20 10/14/20 10/14/20 16:00 16:00 17:00 18:00 Pulse 68 66 68 Resp 20 20 20 B/P (MAP) 112/77 (89) 124/75 (91) 133/80 (97) Pulse Ox 100 100 100 O2 Delivery Tracheal Collar Trach Collar Tracheal Collar Tracheal Collar O2 Flow Rate 10.0 10/14/20 10/14/20 10/14/20 10/14/20 19:24 19:28 20:09 20:24 Temp 98.0 98.0 98.0 98.0 Pulse 87 80 Resp 20 B/P (MAP) 120/87 (98) 119/71 (87) Pulse Ox 100 100 100 O2 Delivery Tracheal Collar Trach Collar Tracheal Collar Tracheal Collar O2 Flow Rate 10.0 10.0 10.0 8.0 10/14/20 10/14/20 10/14/20 10/14/20 20:40 20:56 21:54 22:57 Temp 98.0 98.4 98.4 98.0 98.4 98.4 Pulse 80 84 79 83 Resp 16 20 B/P (MAP) 119/71 113/73 (86) 125/72 (89) 129/74 (92) Pulse Ox 100 100 100 O2 Delivery Tracheal Collar Tracheal Collar O2 Flow Rate 8.0 8.0 8.0 10/14/20 10/14/20 10/15/20 10/15/20 23:31 23:59 00:21 01:00 Temp 98.4 98.4 Pulse 83 79 Resp 20 18 B/P (MAP) 128/70 (89) 135/66 (89) Pulse Ox 97 100 100 O2 Delivery Trach Collar Tracheal Collar Ventilator PS 10 O2 Flow Rate 8.0 8.0 10/15/20 10/15/20 10/15/20 10/15/20 02:00 03:00 04:00 04:15 Temp 98.2 98.2 Pulse 91 77 91 Resp 18 18 18 B/P (MAP) 138/85 (102) 119/91 (100) 119/70 (86) Pulse Ox 100 96 95 O2 Delivery PS 10 Tracheal Collar Tracheal Collar Trach Collar O2 Flow Rate 10.0 10/15/20 10/15/20 10/15/20 10/15/20 05:00 06:00 07:00 08:00 Temp 97.4 97.4 Pulse 90 98 84 92 Resp 20 20 20 22 B/P (MAP) 118/65 (82) 144/91 (108) 131/97 (108) Pulse Ox 92 91 99 95 O2 Delivery Tracheal Collar Tracheal Collar Tracheal Collar Tracheal Collar 10/15/20 10/15/20 10/15/20 10/15/20 08:00 08:34 08:34 08:56 Pulse 95 98 B/P (MAP) 131/97 131/97 Pulse Ox 100 O2 Delivery Trach Collar Tracheal Collar O2 Flow Rate 10.0 10.0 10/15/20 10/15/20 10/15/2026/21 09:00 10:00 11:03 12:15 Pulse 93 78 76 Resp 18 18 20 B/P (MAP) 127/75 (92) 118/65 (82) 136/80 (98) Pulse Ox 100 98 95 O2 Delivery Tracheal Collar Tracheal Collar Tracheal Collar Trach Collar O2 Flow Rate 10.0 10/15/20 10/15/20 10/15/20 10/15/20 12:17 12:49 13:00 14:08 Temp 98.3 98.3 Pulse 90 102 100 Resp 20 18 18 B/P (MAP) 148/87 (107) 127/77 (94) 132/70 (90) Pulse Ox 95 98 98 100 O2 Delivery Tracheal Collar Tracheal Collar Tracheal Collar Tracheal Collar O2 Flow Rate 8.0 10/15/20 15:00 Pulse 91 Resp 18 B/P (MAP) 119/85 (96) Pulse Ox 99 O2 Delivery Tracheal Collar Intake and Output 10/14/20 10/14/20 10/15/20 15:00 23:00 07:00 Intake Total 0 ml 2246 ml Output Total 530 ml 610 ml 401 ml Balance -530 ml -610 ml 1845 ml Justifications for Admission Other Justification GLENNY GANN MD Oct 15, 2020 15:47
[2020-10-15] MEDS ORDERED: LANS30TA6 FT (15:54)
[2020-10-15] MEDS ORDERED: INSU100V35 SQ (15:54)
--- NOTE | 2020-10-15 15:56 | SNU/HH DC ---
DISCHARGE ORDERS DISCHARGE INFORMATION: DISCHARGE DATE: Oct 15, 2020 FINAL DIAGNOSIS Problems Medical Problems: (1) Altered mental status Status: Acute (2) Hematochezia Status: Acute (3) Tracheostomy care Status: Acute CONDITION ON DISCHARGE: Stable CODE STATUS: Code Status: Full LTAC: ADMIT TO LTAC: Yes POST DISCHARGE ORDERS: DIET AFTER DISCHARGE: tube feeding goal rate 60cc/hr. water 200cc every 6 hours peg FOLLOW-UP: PHYSICIAN FOLLOW-UP: dr. gann at [facility] hospital TREATMENT/EQUIPMENT ORDERS: Physical Therapy For: Evalulation/Treatment Occupational Therapy For: Evaluation/Treatment DISCHARGE MEDICATIONS: Home Meds Active Scripts Insulin Lispro (Admelog) 100 Unit/1 Ml Vial, 0 UNITS SQ Q6HRS for diabetes, #5 EACH BS 150-199=1 unit 200-299=2 units 196=457=7 units 400-499=6 units Prov:GLENNY GANN MD 10/15/20 Lansoprazole (PREVACID) 30 Mg Tab.rap.dr, 30 MG FT DAILY for gi bleed, #30 TAB Prov:GLENNY GANN MD 10/15/20 Reported Medications Acetaminophen (TYLENOL) 325 Mg Tablet, 650 MG PO PRN Q6HRS PRN for PAIN, TAB 10/12/20 Trazodone Hcl (TRAZODONE HCL) 50 Mg Tablet, 1 TAB PO QHS for sleeping pill, #30 TAB 10/12/20 Metoprolol Tartrate (METOPROLOL TARTRATE) 25 Mg Tablet, 1 TAB PO BID for bp, #180 TAB 3 Refills 10/12/20 Meropenem (MERREM) 500 Mg Vial, 500 MG IV Q6HRS for antibiotic, EACH 10/12/20 Ipratropium/Albuterol Sulfate (DUONEB 0.5-3(2.5) MG/3 ML) 3 Ml Ampul.neb, 3 ML NEB QID for breathing treatment, EACH 10/12/20 Atorvastatin Calcium (ATORVASTATIN CALCIUM) 20 Mg Tablet, 1 TAB PO DAILY for colesterol, #90 TAB 3 Refills 10/12/20 Amiodarone Hcl (AMIODARONE HCL) 200 Mg Tablet, 1 TAB PO DAILY for heart rate, #9 0 TAB 3 Refills 10/12/20 Discontinued Reported Medications Docusate Sodium (COLACE) 100 Mg Capsule, 1 CAP PO BID for stool softener for 15 Days, #30 CAP 0 Refills 10/12/20 Pantoprazole Sodium (PROTONIX) 20 Mg Tablet.dr, 1 TAB PO DAILY for gerd, #90 TAB 3 Refills 10/12/20 Linezolid (ZYVOX) 600 Mg Tablet, 600 MG PO BID for anitbiotic, TAB 10/12/20 Insulin Glargine,Hum.rec.anlog (LANTUS SOLOSTAR) 100 Unit/1 Ml Insuln.pen, 22 UN IT SQ QHS for sugar, #15 ML 3 Refills 10/12/20 Amlodipine Besylate (AMLODIPINE BESYLATE) 5 Mg Tablet, 5 MG PO DAILY for bp, TAB 10/12/20 GLENNY GANN MD Oct 15, 2020 15:56
--- NOTE | 2020-10-15 16:40 | PDOC ---
PULMONARY PROGRESS NOTES DATE: 10/15/20 TIME: 16:38 Subjective Patient is resting comfortably on 35% trach shield Utilizes ventilatory support overnight no reports of bleeding No other concerns Vitals Vital Signs Date Time Temp Pulse Resp B/P (MAP) Pulse Ox O2 Delivery O2 Flow Rate FiO2 10/15/20 16:03 98 20 133/81 (98) 98 Tracheal Collar 10/15/20 15:47 10.0 10/15/20 12:17 98.3 98.3 ROS: No Nausea, No Chest Pain, No Abdominal Pain, No Increase Cough General: Alert HEENT: Other (trach ) Lungs: Clear Cardiovascular: S1, S2 Abdomen: Soft, Non-tender Neuro Exam: Alert Extremities: No Edema, Other Skin: Warm, Dry, Other (Bilateral wounds ) Labs Laboratory Tests Test 10/13/20 18:23 10/14/20 00:20 10/14/20 02:00 10/14/20 05:00 Glucose (Fingerstick) 171 mg/dL (70-99) 204 mg/dL (70-99) Hemoglobin 8.8 g/dL (13.0-17.5) 8.4 g/dL (13.0-17.5) White Blood Count 8.4 x10^3/uL (4.0-11.0) Red Blood Count 2.84 x10^6/uL (4.30-5.70) Hematocrit 25.7 % (39.0-53.0) Mean Corpuscular Volume 90 fL (79-100) Mean Corpuscular Hemoglobin 30 pg (25-35) Mean Corpuscular Hemoglobin Concent 33 g/dL (31-37) Red Cell Distribution Width 15.4 % (11.5-14.5) Platelet Count 235 x10^3/uL (140-400) Neutrophils (%) (Auto) 71 % (31-73) Lymphocytes (%) (Auto) 20 % (24-48) Monocytes (%) (Auto) 7 % (0-9) Eosinophils (%) (Auto) 2 % (0-3) Basophils (%) (Auto) 1 % (0-3) Neutrophils # (Auto) 5.9 x10^3/uL (1.8-7.7) Lymphocytes # (Auto) 1.6 x10^3/uL (1.0-4.8) Monocytes # (Auto) 0.6 x10^3/uL (0.0-1.1) Eosinophils # (Auto) 0.2 x10^3/uL (0.0-0.7) Basophils # (Auto) 0.1 x10^3/uL (0.0-0.2) Sodium Level 142 mmol/L (136-145) Potassium Level 4.3 mmol/L (3.5-5.1) Chloride Level 110 mmol/L (98-107) Carbon Dioxide Level 26 mmol/L (21-32) Anion Gap 6 (6-14) Blood Urea Nitrogen 25 mg/dL (8-26) Creatinine 1.4 mg/dL (0.7-1.3) Estimated GFR (Cockcroft-Gault) 51.5 Glucose Level 145 mg/dL (70-99) Calcium Level 8.0 mg/dL (8.5-10.1) Test 10/14/20 05:08 10/14/20 11:42 10/14/20 17:28 10/14/20 23:57 Glucose (Fingerstick) 135 mg/dL (70-99) 169 mg/dL (70-99) 146 mg/dL (70-99) 132 mg/dL (70-99) Test 10/15/20 04:30 10/15/20 12:21 White Blood Count 11.2 x10^3/uL (4.0-11.0) Red Blood Count 3.13 x10^6/uL (4.30-5.70) Hemoglobin 9.3 g/dL (13.0-17.5) Hematocrit 28.2 % (39.0-53.0) Mean Corpuscular Volume 90 fL (79-100) Mean Corpuscular Hemoglobin 30 pg (25-35) Mean Corpuscular Hemoglobin Concent 33 g/dL (31-37) Red Cell Distribution Width 15.8 % (11.5-14.5) Platelet Count 231 x10^3/uL (140-400) Neutrophils (%) (Auto) 79 % (31-73) Lymphocytes (%) (Auto) 12 % (24-48) Monocytes (%) (Auto) 5 % (0-9) Eosinophils (%) (Auto) 3 % (0-3) Basophils (%) (Auto) 1 % (0-3) Neutrophils # (Auto) 8.8 x10^3/uL (1.8-7.7) Lymphocytes # (Auto) 1.3 x10^3/uL (1.0-4.8) Monocytes # (Auto) 0.6 x10^3/uL (0.0-1.1) Eosinophils # (Auto) 0.3 x10^3/uL (0.0-0.7) Basophils # (Auto) 0.1 x10^3/uL (0.0-0.2) Sodium Level 141 mmol/L (136-145) Potassium Level 4.3 mmol/L (3.5-5.1) Chloride Level 105 mmol/L (98-107) Carbon Dioxide Level 26 mmol/L (21-32) Anion Gap 10 (6-14) Blood Urea Nitrogen 18 mg/dL (8-26) Creatinine 1.1 mg/dL (0.7-1.3) Estimated GFR (Cockcroft-Gault) 68.1 Glucose Level 121 mg/dL (70-99) Calcium Level 7.9 mg/dL (8.5-10.1) Glucose (Fingerstick) 184 mg/dL (70-99) Laboratory Tests Test 10/14/20 17:28 10/14/20 23:57 10/15/20 04:30 10/15/20 12:21 Glucose (Fingerstick) 146 mg/dL (70-99) 132 mg/dL (70-99) 184 mg/dL (70-99) White Blood Count 11.2 x10^3/uL (4.0-11.0) Red Blood Count 3.13 x10^6/uL (4.30-5.70) Hemoglobin 9.3 g/dL (13.0-17.5) Hematocrit 28.2 % (39.0-53.0) Mean Corpuscular Volume 90 fL (79-100) Mean Corpuscular Hemoglobin 30 pg (25-35) Mean Corpuscular Hemoglobin Concent 33 g/dL (31-37) Red Cell Distribution Width 15.8 % (11.5-14.5) Platelet Count 231 x10^3/uL (140-400) Neutrophils (%) (Auto) 79 % (31-73) Lymphocytes (%) (Auto) 12 % (24-48) Monocytes (%) (Auto) 5 % (0-9) Eosinophils (%) (Auto) 3 % (0-3) Basophils (%) (Auto) 1 % (0-3) Neutrophils # (Auto) 8.8 x10^3/uL (1.8-7.7) Lymphocytes # (Auto) 1.3 x10^3/uL (1.0-4.8) Monocytes # (Auto) 0.6 x10^3/uL (0.0-1.1) Eosinophils # (Auto) 0.3 x10^3/uL (0.0-0.7) Basophils # (Auto) 0.1 x10^3/uL (0.0-0.2) Sodium Level 141 mmol/L (136-145) Potassium Level 4.3 mmol/L (3.5-5.1) Chloride Level 105 mmol/L (98-107) Carbon Dioxide Level 26 mmol/L (21-32) Anion Gap 10 (6-14) Blood Urea Nitrogen 18 mg/dL (8-26) Creatinine 1.1 mg/dL (0.7-1.3) Estimated GFR (Cockcroft-Gault) 68.1 Glucose Level 121 mg/dL (70-99) Calcium Level 7.9 mg/dL (8.5-10.1) Medications Active Scripts Medications Dose Route/Sig Max Daily Dose Days Date Category Colace (Docusate Sodium) 100 Mg Capsule 1 Cap PO BID 15 10/12/20 Reported Tylenol (Acetaminophen) 325 Mg Tablet 650 Mg PO PRN Q6HRS PRN 10/12/20 Reported Trazodone Hcl 50 Mg Tablet 1 Tab PO QHS 10/12/20 Reported Protonix (Pantoprazole Sodium) 20 Mg Tablet.dr 1 Tab PO DAILY 10/12/20 Reported Metoprolol Tartrate 25 Mg Tablet 1 Tab PO BID 10/12/20 Reported Merrem (Meropenem) 500 Mg Vial 500 Mg IV Q6HRS 10/12/20 Reported Zyvox (Linezolid) 600 Mg Tablet 600 Mg PO BID 10/12/20 Reported Duoneb 0.5-3(2.5) Mg/3 Ml (Albuterol/Ipratropium) 3 Ml Ampul.neb 3 Ml NEB QID 10/12/20 Reported Lantus Solostar (Insulin Glargine,Hum.rec.anlog) 100 Unit/1 Ml Insuln.pen 22 Unit SQ QHS 10/12/20 Reported Atorvastatin Calcium 20 Mg Tablet 1 Tab PO DAILY 10/12/20 Reported Amlodipine Besylate 5 Mg Tablet 5 Mg PO DAILY 10/12/20 Reported Amiodarone Hcl 200 Mg Tablet 1 Tab PO DAILY 10/12/20 Reported Impression . IMPRESSION: 1. [id number] respiratory failure, multifactorial 2. Recent COVID-19 viral pneumonia, status post trach and PEG on 09/24/2020. 3. Hematochezia/melena per GI. 4. Acute blood loss anemia-- stable 5. Atrial fibrillation, on chronic Eliquis-- eliquis on hold 6. Upper extremity deep venous thrombosis. 7. Chronic obstructive pulmonary disease. 8. Type 2 diabetes. 9. Paroxysmal atrial fibrillation. 10. Severe protein malnutrition. Plan . PLAN: Continue trach shield during the day and mechanical ventilation overnight, currently T-shield 35%, PMV as tolerated Trach care daily, as needed suctioning Plan to down size trach early next week Follow GI recommendations, Follow infectious disease recommendations in regards to antibiotic therapy Monitor hemoglobin, transfuse if hemoglobin less than 7 Continue to hold Eliquis for 1 week per GI recs Follow wound care recommendations, every 2 turn for offloading Continue TF for nutritional support GI PPX Discussed with RN and RT Social work for D/[facility] Critical [facility] Time 30 minutes CHINO JUÁREZ MD Oct 15, 2020 16:40
[2020-10-16] MEDS ORDERED: LANSOPRAZOLE 30 MG TAB.RAP.DR FT SCH (07:30)
--- NOTE | 2020-10-16 13:25 | PDOC ---
Provider Note Date of Service: DATE: 10/16/20 TIME: 13:25 Provider Note discharge summary dictated # [id number] Justifications for Admission Other Justification GLENNY GANN MD Oct 16, 2020 13:25
--- NOTE | 2020-10-16 14:36 | DS ---
DATE OF DISCHARGE: 10/15/2020 CONSULTANTS: Include Dr. Peterson, Dr. Gates, Dr. Lowry, Dr. Jimena Santamaria. FINAL DIAGNOSES: 1. Acute gastrointestinal bleed. 2. Acute blood loss anemia on top of anemia of chronic disease. 3. Acute on chronic hypoxic respiratory failure. 4. Chronic obstructive pulmonary disease. 5. Recent COVID-19 pneumonia, out of isolation. 6. Diabetes mellitus type 2, on insulin. 7. Hypertension. 8. Paroxysmal atrial fibrillation, currently in normal sinus rhythm, off of Eliquis due to gastrointestinal bleed. 9. Hyperlipidemia. 10. Deep vein thrombosis, right upper extremity. 11. Morbid obesity. 12. Tracheostomy. 13. Severe protein-calorie malnutrition. 14. Oropharyngeal dysphagia, maintaining gastrostomy tube feedings. 15. Acute kidney injury, improved. HOSPITAL COURSE: The patient is a 60-year-old morbidly obese white male with history of diabetes mellitus type 2, on insulin, hypertension, hyperlipidemia, coronary artery disease with previous coronary artery angioplasty and stent, chronic obstructive pulmonary disease, chronic hypoxic respiratory failure, maintained on oxygen 1-2 liters per nasal cannula at home, was admitted to [facility] at the [facility] on 08/2020 with acute kidney injury and was noted to be COVID-19 positive. He had acute on chronic hypoxic respiratory failure, had to be intubated, placed on the ventilator and eventually had a tracheostomy and PEG placed. He was now weaned off the ventilator. He had new onset atrial fibrillation with rapid ventricular response, treated with amiodarone and Eliquis and had a deep vein thrombosis in the right upper extremity, treated with Eliquis. He had Campylobacter jejuni, treated with a 3-day course of doxycycline, which resolved. He had Bordetella in his sputum and received a course of Zithromax and Rocephin. He had a tracheostomy and PEG placed 09/24/2020, and he developed acute kidney injury. He was treated with hemodialysis and his renal function improved and hemodialysis was discontinued. An echocardiogram showed a preserved left ventricular ejection fraction of 55-60% with some akinesis noted in the septal and distal apical areas probably reflecting prior myocardial infarction and he also had grade 2 diastolic left ventricular dysfunction and mild pulmonary hypertension. He was still on the ventilator at night, trach shield during the day. He was admitted to [facility] on 10/06/2020, for ventilator weaning, tracheostomy care, tube feeding, and water flushes. He developed a fever and his blood and urine cultures were negative, treated with IV meropenem and doxycycline per the Infectious Disease doctor. On 10/12, he developed a large red stool and he had that a couple of times at [facility] and was sent to [facility]. His initial hemoglobin was 10.0. He was admitted to [facility] at Intensive Care Unit through the Emergency Room with a GI bleed. CAT scan of the abdomen and pelvis with IV contrast showed no active bleeding or a vascular blush. The patient received 1 unit of packed red blood cells. His hemoglobin was slightly below 7 and after that he did not require any further blood transfusions. His vital signs were stable. He was seen by multiple consultants including Dr. Jimena Santamaria for Infectious Disease, Dr. Lowry for Pulmonary, Dr. Gates for Cardiology and Dr. Peterson for GI. He stabilized. His tube feedings were resumed and he tolerated them well and he did not have any further bleeding. He did not have an EGD or colonoscopy per the GI doctor. He was dismissed back to [facility] on 10/15/2020, and he can look over his medications. GLENNY GANN MD DR: MINE/moy JOB#: [id number] / [id number]
== END 2020-10-15 19:15 | DRG 377 ==
LOC: ER 07:41 → 1 WEST ICU 10:12
PROVIDERS: ADMIT Internal Medicine; ATTEND Internal Medicine
PROC: 5A1935Z Respiratory Ventilation, Less than 24 Consecutive Hours (ICD-10-PCS; principal; 2020-10-12)
PROC: 30233N1 Transfusion of Nonautologous Red Blood Cells into Peripheral Vein, Percutaneous Approach (ICD-10-PCS; 2020-10-12)
DX: K92.2 Gastrointestinal hemorrhage, unspecified (principal); J96.21 Acute and chronic respiratory failure with hypoxia; E43 Unspecified severe protein-calorie malnutrition; D68.9 Coagulation defect, unspecified; D62 Acute posthemorrhagic anemia; G93.40 Encephalopathy, unspecified; I82.621 Acute embolism and thrombosis of deep veins of right upper extremity; J44.0 Chronic obstructive pulmonary disease with (acute) lower respiratory infection; J98.11 Atelectasis; Z16.19 Resistance to other specified beta lactam antibiotics; N17.9 Acute kidney failure, unspecified; D63.8 Anemia in other chronic diseases classified elsewhere; E11.65 Type 2 diabetes mellitus with hyperglycemia; E66.01 Morbid (severe) obesity due to excess calories; E78.5 Hyperlipidemia, unspecified; I10 Essential (primary) hypertension; I25.10 Atherosclerotic heart disease of native coronary artery without angina pectoris; I25.2 Old myocardial infarction; I27.20 Pulmonary hypertension, unspecified; I48.0 Paroxysmal atrial fibrillation; K80.20 Calculus of gallbladder without cholecystitis without obstruction; L89.309 Pressure ulcer of unspecified buttock, unspecified stage; R13.12 Dysphagia, oropharyngeal phase; Z79.01 Long term (current) use of anticoagulants; Z79.4 Long term (current) use of insulin; Z86.718 Personal history of other venous thrombosis and embolism; Z87.01 Personal history of pneumonia (recurrent); Z88.0 Allergy status to penicillin; Z88.1 Allergy status to other antibiotic agents; Z93.0 Tracheostomy status; Z93.1 Gastrostomy status; Z95.5 Presence of coronary angioplasty implant and graft; Z99.81 Dependence on supplemental oxygen; Z86.16 Personal history of COVID-19
CPT/HCPCS: 31720; 36415; 36430; 70450; 71045; 74177; 80048; 80053; 80076; 81001; 82274; 82962; 84443; 85018; 85025; 85027; 85610; 85730; 86850; 86900; 86901; 86920; 87040; 87493; 87505; 93005; 94003; 94640; 94760; 96365; 96368; C9113; J1815; J2020; J2185; J3480; J3490; J7060; P9016; Q9967; 97530-GO; 97530-GP; 97535-GO; 99285-25; G0378